=== PATIENT | male | born 1960 | race Caucasian/White ===

== ENCOUNTER → 2018-08-09 08:30 | Outpatient (CLI) | payer MEDICARE, BC, SELFPAY ==
--- NOTE | 2018-08-09 | CI_ITS ---
Cerebrovascular Exam Indications: 780.2 Syncope and collapse. IMPRESSIONS 1. The bilateral vertebral arteries are patent with normal antegrade flow. 2. Study suggests less than 20% stenosis involving the right internal carotid artery and the left internal carotid artery. Carotid duplex study. Complete study and Doppler flow study including spectral analysis, color and henao scale imaging. Height: Height: 182.9cm. Height: 72in. Weight: Weight: 100.7kg. Weight: 221.5lb. Body mass index: BMI: 30.1kg/m^2. Body surface area: BSA: 2.29m^2. Location: Vascular laboratory. Patient status: Outpatient. Tables: Arterial flow: + +--------+--------+ Location V sys V ed + +--------+--------+ Right CCA - proximal 114cm/s 28.3cm/s + +--------+--------+ Right CCA - distal 119cm/s 29.9cm/s + +--------+--------+ Right ECA 144cm/s -------- + +--------+--------+ Right ICA - proximal 78.1cm/s 32.9cm/s + +--------+--------+ Right ICA - mid 95.4cm/s 45.2cm/s + +--------+--------+ Right ICA - distal 83.3cm/s 41.4cm/s + +--------+--------+ Right vertebral 42.2cm/s -------- + +--------+--------+ Left CCA - proximal 115cm/s 27cm/s + +--------+--------+ Left CCA - distal 116cm/s 41.6cm/s + +--------+--------+ Left ECA 141cm/s -------- + +--------+--------+ Left ICA - proximal 95.1cm/s 40.1cm/s + +--------+--------+ Left ICA - mid 81.7cm/s 36.1cm/s + +--------+--------+ Left ICA - distal 75.5cm/s 26.5cm/s + +--------+--------+ Left vertebral 56cm/s -------- + +--------+--------+ Velocity ratios: + + + + + + Right, V sys Right, V ed Left, V sys Left, V ed + + + + + + Max ICA/dist CCA 0.8 1.51 0.82 0.96 + + + + + + (Report amended ) Electronically signed by: Khris Plunkett [id number]
--- NOTE | 2018-08-09 11:05 | MR_ITS ---
MR head/brain wo/w con HISTORY: Memory loss, syncope, unresponsive following syncope with dizziness and blurred vision ITS.REASON: SYNCOPE ORDERING PHYSICIAN: Juanjose Rodriguez MD PATIENT AGE: 58 years Comparison: None TECHNIQUE: Standard multiplanar multiecho sequences are performed without and with gadolinium enhancement. FINDINGS: No midline shift, mass effect, intracranial hemorrhage, or hydrocephalus is evident. Motion artifact is present on several sequences. There is tortuosity of the left vertebral artery causing some indentation upon the brainstem on the left of questioned clinical significance. No enhancing lesions are evident. No evidence of acute infarction. There are only a few T2 white matter hyperintensities noted nonspecific and may be due to minimal ischemic gliotic foci. The cerebellopontine angles, cerebellum, and brainstem are unremarkable. No mastoid effusion or sinus air-fluid level. The pituitary and optic chiasm are unremarkable. IMPRESSION: 1. No acute intracranial findings. 2. Scattered periventricular T2 white matter hyperintensities suggesting mild ischemic gliotic change. 3. Tortuosity of the left vertebral artery causing some indentation upon the left aspect of the brainstem nonspecific. Midbrain is slightly deviated toward the right. No hydronephrosis.
--- NOTE | 2018-08-09 12:12 | HMH.ITSHM ---
DULOXETINE PRIMIDONE PRAMIPEXOLE LEVETIRACETAM
== END ==
PROVIDERS: PCP Family Medicine; Visit Provider Family Medicine
DX: R55 Syncope and collapse (principal)
CPT/HCPCS: 70553; 93880; 95816; A9576

== ENCOUNTER → 2018-08-17 11:45 | Outpatient (CLI) | payer MEDICARE, BC, SELFPAY | PROVIDERS: PCP Family Medicine; Visit Provider Family Medicine | DX: R55 Syncope and collapse (principal) | CPT/HCPCS: 93225; 93226 ==

== ENCOUNTER → 2018-08-30 07:12 | Outpatient (CLI) | payer MEDICARE, BC, SELFPAY ==
--- NOTE | 2018-08-30 07:13 | CA_ITS ---
PROCEDURE: 2-D M-mode and color Doppler study INDICATIONS FOR THE TEST: Chest pain X COPD Heart Murmur Tobacco Smoking Palpitations FatigueX SyncopeX Edema HypertensionXDiabetes Mellitus Rheumatic Fever SOBXDOE Obesity Hyperlipidemia Family History HD Additional History CAD,DIZZINESS PATIENT INFORMATION HEIGHT: 72 WEIGHT:234 GENDER: Male B/P:123/76 2-D/M-MODE INTERPRETATION: 2-D MEASUREMENTS OBSERVED VALUES IN CMS Right Ventricular Dimension (RVDd) 2.3 Interventricular Septum (Thickness)(IVsd) .9 Left Ventricular Internal Dimensions(LVIDd) 5.0 Left Ventricular Posterior Wall (Thickness)(LVPWd) 1.0 Aortic Root 3.0 Aortic Cusp Separation 2.0 Left Atrial Dimensions (LAD) 3.6 2D 1. Left atrium is mildly enlarged, left ventricle is normal size, there is no concentric left ventricular hypertrophy, visually estimated ejection fraction 55% with no regional wall motion abnormality. 2. The right atrium is mildly enlarged, right ventricle is normal size and contractility. 3. The aortic valve is minimally thickened and fibrosed. 4. The mitral and tricuspid valve leaflets are minimally thickened. 5. The pulmonic valve is poorly visualized. 6. No significant pericardial effusion noted. DOPPLER INTERROGATION: Doppler interrogation of the aortic, mitral and tricuspid valvular presence of mild mitral and tricuspid regurgitation, tricuspid regurgitation jet velocity is insufficient for calculation of the right ventricular systolic pressure, diastolic parameters are inconclusive. CONCLUSION: 1. Mild biatrial enlargement, normal left ventricular size, visually estimated ejection fraction of 55% with no regional wall motion abnormality, diastolic parameters are inconclusive. 2. Mild mitral and tricuspid regurgitation 3. No significant pericardial effusion noted.
--- NOTE | 2018-08-30 07:13 | NM_ITS ---
History and Indications: Coronary artery disease, chest pain, shortness of breath, syncope and family history. Procedure: Patient exercised on Samuel protocol 9 minutes, resting heart rate was 61 bpm resting blood pressure 147/89, with exercise maximum heart rate achieved was 1 49 bpm which is greater than 85% of the maximum predicted heart rate and a blood pressure was 236/84. Test was started due to shortness of breath patient denied any complained of chest pain. Patient has good exercise capacity achieved 10.1mets of workload on treadmill, the blood pressure response to exercise was hypertensive. Electrocardiogram: Resting electrocardiogram showed sinus rhythm, with exercise there is less than 1.[address] segment depression noted from the baseline EKG, occasional premature ventricular complexes were also present. The EKG portion of the exercise Myoview is negative for ischemia. Cardiac stress and resting SPECT images: Exercise stress and rest SPECT images were obtained using technetium 99 Myoview 10.8 mCi at stress than 10.3 mCi at rest. Gated SPECT further analysis of segmental wall motion and calculation of the ejection fraction also done. Cardiac stress and rest SPECT images show uniform myocardial activity without segmental perfusion abnormality, computer derived ejection fraction is 58% with no regional wall motion abnormality, right ventricle is normal size and contractility. Conclusion: 1. The EKG portion of the exercise Myoview is for ischemia, patient has good exercise capacity achieved 10.1mets of workload on treadmill, the blood pressure response to exercise was hypertensive, test was stopped due to shortness of breath. 2. No scintigraphic evidence of reversible ischemia level of exercise, computer derived ejection fraction is 58% with no regional wall motion abnormality, right ventricle is normal size and contractility.
--- NOTE | 2018-08-30 07:28 | HMH.ITSHM ---
DULOXETINE PRIMIDONE PRAMIPEXOLE LEVETIRACTETAM
== END ==
PROVIDERS: PCP Family Medicine; Visit Provider Internal Medicine Cardiovascular Disease
DX: I25.10 Atherosclerotic heart disease of native coronary artery without angina pectoris (principal); I99.8 Other disorder of circulatory system; R55 Syncope and collapse; Z86.79 Personal history of other diseases of the circulatory system
CPT/HCPCS: 78452; 93017; 93306; A9502

== ENCOUNTER → 2019-02-22 15:51 | Outpatient (CLI) | payer MEDICARE, BC, SELFPAY ==
--- NOTE | 2019-02-22 16:00 | XR_ITS ---
XR knee LT 3V HISTORY: ITS.REASON: LT KNEE PAIN ORDERING PHYSICIAN: Juanjose Rodriguez MD PATIENT AGE: 58 years COMPARISON: None FINDINGS: No fracture or dislocation. No lytic or blastic change. Normal mineralization. There are minimal osteoarthritic changes of the medial compartment and patellofemoral joint. IMPRESSION: Mild osteoarthritis
== END ==
PROVIDERS: PCP Family Medicine; Visit Provider Family Medicine
DX: M25.562 Pain in left knee (principal)
CPT/HCPCS: 73562

== ENCOUNTER → 2020-05-11 12:50 | Outpatient (CLI) | payer MEDICARE, BC, SELFPAY ==
--- NOTE | 2020-05-11 12:54 | MR_ITS ---
PROCEDURE: MR KNEE LT WO CON CLINICAL INDICATION: PAIN IN LEFT KNEE Knee pain with catching and knee COMPARISON: [id number] XR knee LT 3V from 02/22/2019 TECHNIQUE: Routine multiplanar multi echo sequences are performed without gadolinium enhancement. FINDINGS: The cruciate ligaments, collateral ligaments, patellar tendon, and quadriceps tendon appear intact. No definite meniscal tear. There is increased T2 signal involving the posterior horn the medial meniscus but does not meet strict MRI criteria for meniscal tear. There are mild osteoarthritic changes of all 3 compartments. There is thinning of the patellar cartilage with some irregularity of the patellar cartilage. Small amount fluid is present in the knee joint. IMPRESSION: 1. No evidence of internal derangement. 2. Mild osteoarthritic changes with thinning and irregularity of the patellar cartilage suggesting chondromalacia patella with small effusion. Dictated by: Khris Plunkett MD 05/13/2020 08:58 Electronically signed by Khris Plunkett MD in [place] 05/13/2020 08:58
== END ==
PROVIDERS: PCP Family Medicine; Visit Provider Family Medicine
DX: M25.562 Pain in left knee (principal)
CPT/HCPCS: 73721

== ENCOUNTER → 2020-08-24 17:47 | Outpatient (CLI) | payer MEDICARE, BC, SELFPAY ==
--- NOTE | 2020-08-24 18:06 | XR_ITS ---
PROCEDURE: XR HAND RT MIN 3V CLINICAL INDICATION: DISLOCATION OF PIP JOINT OF 3RD DIGIT, INITAL ENCOUNTER Pain COMPARISON: No exams were available for comparison FINDINGS: There is a small calcific density along the ulnar and distal aspect the proximal phalanx of the 3rd digit which may be related to an avulsion fracture in this patient gives a history of having recent PIP dislocation at this area. There is a well-circumscribed bony fragment also at the PIP joint dorsally of the 5th digit which could be due to an old injury. Degenerative changes are also present. IMPRESSION: Possible avulsion fracture at the ulnar aspect of the PIP joint of the 3rd digit with suspected old avulsion of the PIP dorsally of the 5th digit Dictated by: Khris Plunkett MD 08/24/2020 18:36 Khris Plunkett MD in [place] 08/24/2020 18:36
--- NOTE | 2020-08-24 18:17 | ECG_ITS ---
APPROVED REPORT Exam: Resting ECG HR:64 bpm ECG Measurements Heart Rate 64 AXES ID 142 P 42 QRSd 80 QRS 19 QT 406 T 25 QTc 418 <Conclusion> Normal sinus rhythm Normal ECG Electronically signed by : Nehemiah Deleon, 08/25/2020 06:24:06
== END ==
PROVIDERS: PCP Family Medicine; Visit Provider Family Medicine
DX: S63.289A Dislocation of proximal interphalangeal joint of unspecified finger, initial encounter (principal); M94.0 Chondrocostal junction syndrome [Tietze]
CPT/HCPCS: 73130; 93005

== ENCOUNTER 2020-11-20 15:49 | Emergency (ER) | payer MEDICARE, BC, SELFPAY ==
--- NOTE | 2020-11-20 15:51 | ECG_ITS ---
APPROVED REPORT Exam: Resting ECG HR:82 bpm ECG Measurements Heart Rate 82 AXES DC 144 P 62 QRSd 84 QRS 43 QT 362 T 48 QTc 422 Conclusion Sinus rhythm with occasional premature ventricular complexes Otherwise normal ECG Electronically signed by : Nehemiah Deleon, 11/21/2020 07:17:00
--- NOTE | 2020-11-20 15:51 | XR_ITS ---
PROCEDURE: XR CHEST 2V CLINICAL HISTORY: Chest Pain COMPARISON: No exams were available for comparison FINDINGS: The cardiomediastinal silhouette and pulmonary vascularity are within normal limits. Atelectatic changes are present in the right perihilar region and lingula. No acute bony abnormalities. IMPRESSION: Mild atelectasis in the right perihilar region and lingula otherwise negative Dictated by: Khris Plunkett MD 11/20/2020 16:18 Khris Plunkett MD in [place] 11/20/2020 16:18
--- NOTE | 2020-11-20 15:55 | HMH.EDGENADL ---
ED Disposition Clinical Impression: Atypical chest pain Disposition: Home, Self-Care Condition on Discharge: Good Instructions: DI for Atypical Chest Pain Additional Instructions: See Dr. Amado in his office tomorrow morning at 9 AM. Return immediately if worsening chest pain, vomiting, shortness of breath, fever, coughing of blood. Protonix as prescribed. Prescriptions: Pantoprazole Sodium [Protonix 40mg tablet] 40 mg PO DAILY #15 tab Transmission Status: Pending to [facility] Referrals: Juanjose Rodriguez MD [Primary Care Provider] - - Critical Care Critical Care Time: No Attestation: On , the high probability of a clinically significant, sudden or life threatening deterioration of the following system(s) required my full and direct attention, intervention and personal management. The time I documented below is in addition to time spent performing reported procedures but includes the following listed in this critical care notation. Medical Decision Making - Medical Records MR Comment: Prior stress test result, prior left heart cath result, prior carotid Doppler results reviewed. Left heart cath and stress test results are below. Most recent cardiology office visit in April reviewed. - Jarrett Inquiry Pt receiving controlled substance: No Vital Signs: 11/20/20 15:57 11/20/20 16:06 11/20/20 16:30 Temperature 98.1 F Temperature Source Oral Pulse Rate [Right Brachial] 84 77 79 Respiratory Rate 18 18 Blood Pressure [Right Arm] 163/93 H 145/90 H 134/83 Blood Pressure Mean [Right Arm] 116 108 100 Blood Pressure Source [Right Arm] Automatic Cuff Automatic Cuff Automatic Cuff Blood Pressure Position [Right Arm] Supine Sitting Sitting 02 Sat by Pulse Oximetry 96 97 96 Oxygen Delivery Method Room Air Room Air Room Air - Lab Data Lab Results 11/20/20 15:52: WBC 12.5 H, RBC 5.48, Hgb 14.9, Hct 46.0, MCV 84.0, MCH 27.2, MCHC 32.4, RDW 13.8, Plt Count 300, MPV 7.1 L, Neut % (Auto) 70.1, Lymph % (Auto) 19.3, Caroline % (Auto) 5.5, Eos % (Auto) 4.4, Baso % (Auto) 0.6, Neut # (Auto) 8.8 H, Lymph # (Auto) 2.4, Caroline # (Auto) 0.7, Eos # (Auto) 0.6 H, Baso # (Auto) 0.1 11/20/20 15:52: Sodium 138, Potassium 4.2, Chloride 104, Carbon Dioxide 28, Anion Gap 10.2, BUN 15, Creatinine 0.80, Estimated Creat Clear 159, Estimated GFR 99, Est GFR ( Amer) 120, Glucose 100, Calcium 9.3, Troponin I < 0.01 11/20/20 15:52: SARS-CoV-2 IgG Ab (Rapid) Negative, SARS-CoV-2 IgM Ab (Rapid) Negative 11/20/20 15:52: D-Dimer 0.75 Result diagrams: 11/20/20 15:52 11/20/20 15:52 Orders (Tests/Meds): ED MEDICATIONS Generic Name Dose Route Start Last Admin Trade Name Freq PRN Reason Stop Dose Admin Sodium Chloride 10 ml 11/20/20 16:07 11/20/20 16:16 Sodium Chloride 0.9% 10ml Vial IV 12/20/20 16:06 10 ml NEEDED PRN Administration dilute protonix Discontinued Medications Generic Name Dose Route Start Last Admin Trade Name Freq PRN Reason Stop Dose Admin Belladonna Alkaloids 60 ml 11/20/20 16:07 11/20/20 16:15 Gi Cocktail 60ml Udc PO 11/20/20 16:08 60 ml ONCE ONE Administration Pantoprazole Sodium 40 mg 11/20/20 16:07 11/20/20 16:15 Pantoprazole 40mg Vial IV 11/20/20 16:08 40 mg ONCE ONE Administration ORDERS Category Date Time Status Troponin I Q3H Lab 11/20/20 19:00 Ordered Troponin I Q3H Lab 11/20/20 22:00 Ordered - Radiology Data #1 Image(s): Chest Image Reviewed: Yes I reviewed the patient's radiology image, Yes I have reviewed radiologist's interpretation PROCEDURE: XR CHEST 2V CLINICAL HISTORY: Chest Pain COMPARISON: No exams were available for comparison FINDINGS: The cardiomediastinal silhouette and pulmonary vascularity are within normal limits. Atelectatic changes are present in the right perihilar region and lingula. No acute bony abnormalities. IMPRESSION: Mild atelectasis in the right perihilar reg
[2020-11-20 15:57] VITALS: BP 163/93; PULSE 84; RESP 18; TEMP 36.7; O2SAT 96; BMI 33.9
[2020-11-20 16:06] VITALS: BP 145/90; PULSE 77; O2SAT 97
[2020-11-20 16:11] LABS: Basophils # 0.1 K/mm3 (0-0.2); Basophils % 0.6 % (0.1-2.0); Eosinophils # 0.6 K/mm3 (0.0-0.4); Eosinophils % 4.4 % (0.1-12.0); Hemoglobin 14.9 g/dL (14.1-18.0); Lymphocytes # 2.4 K/mm3 (0.7-4.5); Lymphocytes % 19.3 % (10-50); Mean Corpuscular HGB Conc 32.4 g/dL (31.8-35.4); Mean Corpuscular Hemoglobin 27.2 pg (27.0-31.2); Mean Platelet Volume 7.1 fl (7.4-10.4); Monocytes # 0.7 K/mm3 (0.1-1.0); Monocytes % 5.5 % (1.7-9.3); Neutrophils # 8.8 K/mm3 (1.8-7.8); Neutrophils % 70.1 % (37.0-80.0); Platelet Count 300 K/mm3 (142-424); Red Blood Count 5.48 M/mm3 (4.60-6.20); Red Cell Distribution Width 13.8 % (11.5-17.5); White Blood Count 12.5 K/mm3 (4.8-10.8)
[2020-11-20 16:12] LABS: Chloride 104 mmol/L (98-107); Potassium 4.2 mmoL/L (3.5-5.1); Sodium 138 mmol/L (136-145)
[2020-11-20 16:15] LABS: Anion Gap 10.2 mEq/L (5-15); Blood Urea Nitrogen 15 mg/dl (9-20); Calcium 9.3 mg/dl (8.4-10.2); Carbon Dioxide 28 mmol/L (22.0-30.0); Creatinine Clearance Estimated 159 mL/min (50-200); Estimated Glomerular Filt Rate 99 ml/min (>60); GFR (African American) 120 ML/MIN (>60); Glucose 100 mg/dl (74-100)
[2020-11-20 16:20] LABS: D-Dimer 0.75 ug/mL (0.15-8.0)
[2020-11-20 16:30] VITALS: BP 134/83; PULSE 79; RESP 18; O2SAT 96
[2020-11-20 16:40] LABS: Troponin I < 0.01 ng/ml (0.00-0.034)
[2020-11-20 16:49] LABS: Coronavirus 19 IgG Antibody Negative (Negative); Coronavirus 19 IgM Antibody Negative (Negative)
[2020-11-20 17:30] VITALS: BP 152/78; PULSE 78; RESP 16; TEMP 36.6; O2SAT 98
== END 2020-11-20 17:31 | disposition home or self-care (01) ==
PROVIDERS: Emergency Provider Emergency Medicine; PCP Family Medicine
DX: R07.89 Other chest pain (principal); Z01.84 Encounter for antibody response examination; R55 Syncope and collapse; I25.10 Atherosclerotic heart disease of native coronary artery without angina pectoris; E11.9 Type 2 diabetes mellitus without complications; I10 Essential (primary) hypertension; E78.5 Hyperlipidemia, unspecified; K21.9 Gastro-esophageal reflux disease without esophagitis; Z87.891 Personal history of nicotine dependence; Z79.899 Other long term (current) drug therapy
CPT/HCPCS: 71046; 80048; 84484; 85025; 85378; 86328; 93005; 96374; 99283

== ENCOUNTER → 2021-02-11 13:04 | Outpatient (CLI) | payer MEDICARE, BC, SELFPAY | PROVIDERS: PCP Family Medicine; Visit Provider Family Medicine | DX: G47.33 Obstructive sleep apnea (adult) (pediatric) (principal); I10 Essential (primary) hypertension; R40.0 Somnolence; R51.9 Headache, unspecified; G47.00 Insomnia, unspecified; E66.9 Obesity, unspecified | CPT/HCPCS: G0399 ==

== ENCOUNTER → 2021-02-26 10:43 | Outpatient (CLI) | payer MEDICARE, BC, SELFPAY ==
[2021-02-26 12:19] LABS: Ferritin 53.8 ng/ml (17.9-464)
== END ==
PROVIDERS: Visit Provider Nurse Practitioner Family
DX: E83.10 Disorder of iron metabolism, unspecified (principal); G25.81 Restless legs syndrome
CPT/HCPCS: 36415; 82728

== ENCOUNTER → 2021-05-13 14:19 | Outpatient (CLI) | payer MEDICARE, BC, SELFPAY ==
--- NOTE | 2021-05-13 14:23 | XR_ITS ---
PROCEDURE: XR KNEE RT 3V CLINICAL INDICATION: NO INJURY,RT KNEE PAIN COMPARISON: CR [id number] XR knee LT 3V from 02/22/2019 FINDINGS: Mild degenerative change of the medial and lateral joint compartments and moderate degenerative change of the patellofemoral joint. Large joint effusion. Mild prepatellar soft tissue swelling. No acute fracture or dislocation. IMPRESSION: Tricompartmental degenerative changes of the right knee joint with large joint effusion and mild soft tissue swelling. No acute fracture or dislocation. Dictated by: Stoney Rodrigues 05/13/2021 15:03 Stoney Rodrigues in [place] 05/13/2021 15:03
== END ==
PROVIDERS: PCP Family Medicine; Visit Provider Family Medicine
DX: M25.561 Pain in right knee (principal)
CPT/HCPCS: 73562

== ENCOUNTER → 2021-05-22 10:47 | Outpatient (CLI) | payer MEDICARE, BC, SELFPAY ==
--- NOTE | 2021-05-22 11:13 | CA_ITS ---
APPROVED REPORT EXAM: Comprehensive 2D, Doppler, and color-flow Echocardiogram Professor Of Art: Karla Pierce, RCS, RVS Ht: 6 ft 0 in Wt: 260lbs BSA: 2.38 BP: 136/82 mmHg Indications: SOB, HTN, HLD, Palpitations 2D Dimensions IVSd 1.17 cm M: 0.6-1.2 LVEF (Visual) 74.70 % PWd 1.03 cm M: 0.6 - 1.2 LA Volume 67.70 mL LVDd 5.73 cm M: 4.2 - 5.9 LA Volume Index 28.44 mL/m2 (M/F) 16-34 LVDs 3.12 cm M: 2.5 - 4.0 Left Atrium 4.33 cm M: 3.0 - 4.0 LVOT 2.10 cm (M/F) 1.5-2.5 M-Mode Dimensions LA Diam 4.44 cm (1.9-4.0) Ao Diam 3.18 cm (2.0-3.7) TAPSE 3.30 (<1.7) LV Diastology E Decel Time 260.00 (160-240 msec) E/A Ratio 1.32 MED E' 10.60 (< 7 cm/sec) MED A' 11.10 cm/s E'/MED E' Ratio 7.00 (>14) LAT E' 8.60 (<10 cm/sec) LAT A' 13.30 cm/s E/LAT E' Ratio 8.63 (>14) Aortic Valve LVOT Max 127.00 (70-110 cm/s) LVOT VTI 21.04 cm AoV Peak Lauro. 174.00 (50-130 cm/s) AO Peak GR. 12.20 mmHg AO Mean GR. 6.40 (<5 mmHg) AO VTI 32.64 (18-25 cm) MARYSE (VTI) 2.23 (2.5-4.5 cm2) Mitral Valve MV A Velocity 56.00 (40-130 cm/s) E/A Ratio 1.32 MV Decel. Time 260.00 (160-240 ms) Pulmonary Valve PV Peak Velocity 111.00 (50-150 cm/s) Tricuspid Valve TR P. Velocity 202.00 cm/s Left Ventricle Left atrium is normal size, left ventricle is normal size, there is no concentric left ventricular hypertrophy, visually estimated ejection fraction 55% with no regional wall motion abnormality, diastolic parameters are within normal range. Right Ventricle Right atrium and right ventricle are normal size and contractility. Aortic Valve Aortic valve is grossly normal. Mitral Valve Mitral valve is grossly normal, there is trace mitral regurgitation. Tricuspid Valve Tricuspid grossly normal, there is trace tricuspid regurgitation, tricuspid regurgitation jet velocity is inadequate for calculation of the right ventricular systolic pressure. Pulmonic Valve Pulmonic valve is poorly visualized. Great Vessels Aortic root is normal size. Pericardium No significant pericardial effusion noted. Conclusion 1. Normal left ventricular size, preserved left ventricular systolic function, visually estimated ejection fraction 55% with no regional wall motion abnormality, diastolic parameters are within normal range. 2. Trace mitral and tricuspid regurgitation. 3. No significant pericardial effusion noted. Electronically signed by : Chava Wise, 05/23/2021 16:11:14
--- NOTE | 2021-05-22 11:58 | NM_ITS ---
APPROVED REPORT Exam: Nuclear Stress Test Indication: Chest pain, SOB, Fatigue, CHF, Tobacco use, Family history Patient Location: Outpatient Stress Tech: Renetta Tobias MS Tech:Keren Martin, ARRT, RT (R)(N) Ht: 6 ft 0 in Wt: 260 lbs HR: 73 bpm BP: 134/83 mmHg BSA: 2.38 m2 History: Chest pain, SOB, Fatigue, CHF, Tobacco use, Family history Procedure: Patient exercised on Samuel protocol 7:45 minutes and sec, resting heart rate 73 bpm, resting blood pressure 134/83 mmHg, with exercise maximum heart rate achived was 149 bpm which is 93 % of the maximum predicted heart rate and blood pressure was 224/84 mmHg. Test was stopped due to SOA. Patient denied any complaint of chest pain. Patient has Good exercise capacity, achieved 10.1 METs of workload on treadmill, the blood pressure response to exercise was Hypertensive. Electrocardiogram Resting electrocardiogram shows sinus rhythm, with exercise there is less than 1.[address] segment depression noted from the baseline EKG. The EKG portion of the exercise Myoview is negative for ischemia. Cardiac Stress and Resting SPECT Images: Cardiac Stress and Resting SPECT images were obtained using technetium 99m Myoview 31.9 mCi stress and 10.14 mCi at rest. Gated SPECT for analysis of segmental wall motion and calculation of the ejection fraction also done. Prone images were also obtained. Cardiac stress and resting SPECT images show mild fixed defect in the inferior wall with normal contractility gated SPECT is likely secondary to soft tissue attenuation, no reversible ischemia seen, computer derived ejection fraction is 59% with no regional wall motion abnormality, right ventricle is normal size and contractility. Conclusion: 1. The EKG portion of the exercise Myoview is negative for ischemia, patient has good exercise capacity achieved 10.1 METs of workload on treadmill, the blood pressure response to exercise was hypertensive, there was no exercise-induced chest discomfort. 2. No scintigraphic evidence of reversible ischemia seen, computer derived ejection fraction is 59% with no regional wall motion abnormality, right ventricle is normal size and contractility 3. Likely normal exercise Myoview study except for hypertensive blood pressure response. Electronically signed by : Chava Wise, 05/23/2021 11:00:34
--- NOTE | 2021-05-22 13:31 | HMH.ITSHM ---
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 []SILDENAFIL ROTIGOTINE PRAMIOPEXOLE PANTOPRAZOLE ASA MULTIVITAMIN LEVETIRACETAM ESZOPICLONE DULOXETINE COLCHICINE
--- NOTE | 2021-05-22 14:34 | CA_ITS ---
APPROVED REPORT Exam: Exercise Treadmill Technologist: Renetta Tobias, Ht: 6 ft 0 in Wt: 260 lbs BSA: 2.38 m2 HR: 73 bpm BP: 134/80 mmHg Medical History Medications: Aspirin,,,,, Multi Vitamin,,,,, Pantoprazole,,,,, Pramipexole,,,,, DulOXETINE,,,,, Levetiracetam,,,,, LUNESTA,,,,, ColCHIcine,,,,, SilDENAFIL,,,,, Neupro,,,,, Stress Test Details Test: Samuel HR Resting HR: 85 bpm Max Heart Rate (APMHR): 160.309269 bpm Max HR Achieved: 149 bpm Target HR (85% APMHR): 136.922483 bpm % of APMHR: 93.13 Recovery HR: 93 bpm BP Resting BP: 134/80 mmHg Max BP: 224/84 mmHg Recovery BP: 132.0/72.0 mmHg ECG Resting ECG: NSR, ST-T abns in leads III and aVF, occ PVC Clinical Exercise duration: 07:48 min Highest Stage Achieved: Exercise capacity: 10.1 METs Stress ECG Conclusion Exercised 7:45 on Samuel Protocol. Max HR: 149 % of PM: 93% Max BP: 224/84 MET's: 10.1 Test stopped due to: SOA Symptoms: Dyspnea, no CP. Arrhythmias/Ectopy: Occ PAC. Occ PVC and fusion beat. ST-T Changes: 0.5-0.75mm horizontal ST depression in lead II and exaggeration of baseline abns in leads III and aVF. Conclusion: Probably normal GTX other than HTN response to exercise. Myoview images reported separately. Test Summary REST . . . . . . . Sitting REST . . . . . . . Standing REST 06:26 0.0 1.2 85 . 134/ 80 . . Stage 1 01:00 10.0 1.7 103 . . . . Stage 1 02:00 10.0 1.7 110 . . . . Stage 1 03:00 10.0 1.7 114 . 160/ 78 . . Stage 2 01:00 12.0 2.5 121 . . . . Stage 2 02:00 12.0 2.5 124 . . . . Stage 2 03:00 12.0 2.5 129 . 190/ 76 . . Stage 3 . . . . . . . Cardiolite injected Stage 3 01:00 14.0 3.4 138 . . . . Stage 3 01:48 14.0 3.4 147 . . . Stop exercise at 07:48 RECOVERY 01:00 0.0 0.0 135 . . . . RECOVERY 02:00 0.0 0.0 122 . 224/ 84 . . RECOVERY 03:00 0.0 0.0 105 . 224/ 84 . . RECOVERY 04:00 0.0 0.0 105 . 150/ 78 . . RECOVERY 05:00 0.0 0.0 95 . 150/ 78 . . RECOVERY 06:00 0.0 0.0 96 . 176/ 74 . . RECOVERY 07:00 0.0 0.0 94 . 176/ 74 . . RECOVERY 07:23 0.0 0.0 93 . 132/ 72 . . Electronically signed by : Chava Wise, 05/23/2021 10:44:23
== END ==
PROVIDERS: PCP Family Medicine; Visit Provider Nurse Practitioner Family
DX: E78.2 Mixed hyperlipidemia (principal); I10 Essential (primary) hypertension; I25.10 Atherosclerotic heart disease of native coronary artery without angina pectoris; N52.9 Male erectile dysfunction, unspecified; R06.00 Dyspnea, unspecified; R40.0 Somnolence
CPT/HCPCS: 78452; 93017; 93306; A9502

== ENCOUNTER → 2021-06-27 20:01 | Outpatient (CLI) | payer MEDICARE, BC, SELFPAY | PROVIDERS: PCP Family Medicine; Visit Provider Nurse Practitioner Family | DX: G47.33 Obstructive sleep apnea (adult) (pediatric) (principal) | CPT/HCPCS: 95811 ==

== ENCOUNTER → 2021-07-26 13:02 | Outpatient (CLI) | payer MEDICARE, BC, SELFPAY ==
--- NOTE | 2021-07-26 13:08 | XR_ITS ---
PROCEDURE: XR KNEE RT 4V CLINICAL INDICATION: RT knee pain COMPARISON: CR [id number] XR knee LT 3V from 02/22/2019 CR XR KNEE RT 3V from 05/13/2021 FINDINGS: No fracture or dislocation. No lytic or blastic change. There is normal mineralization. There are mild osteoarthritic changes involving all 3 compartments with a small suprapatellar effusion suspected which is decreased in size from the previous exam. Other findings:None. IMPRESSION: Mild osteoarthritis with small suprapatellar effusion Dictated by: Khris Plunkett MD 07/26/2021 13:56 Khris Plunkett MD in [place] 07/26/2021 13:56
--- NOTE | 2021-07-26 13:08 | XR_ITS ---
PROCEDURE: XR HIP RT 2-3V W/PELVIS CLINICAL INDICATION: RT hip pain COMPARISON: No exams were available for comparison FINDINGS: There are mild osteoarthritic changes involving the right hip. No fracture or dislocation. No lytic or blastic change. IMPRESSION: Mild osteoarthritis of the right hip Dictated by: Khris Plunkett MD 07/26/2021 14:01 Khris Plunkett MD in [place] 07/26/2021 14:01
== END ==
PROVIDERS: PCP Family Medicine; Visit Provider Orthopaedic Surgery
DX: M25.551 Pain in right hip (principal); M25.561 Pain in right knee
CPT/HCPCS: 73502; 73564

== ENCOUNTER → 2021-08-12 13:45 | Outpatient (CLI) | payer MEDICARE, BC, SELFPAY ==
--- NOTE | 2021-08-12 13:54 | MR_ITS ---
PROCEDURE: MR KNEE RT WO CON CLINICAL INDICATION: RT knee pain COMPARISON: CR XR KNEE RT 4V from 07/26/2021 TECHNIQUE: Routine multiplanar multi echo sequences are performed without gadolinium enhancement. FINDINGS: The cruciate ligaments are intact. Collateral ligaments also appear intact. There is increased PD signal within the menisci. These however do not meet the strict criteria for meniscal tear. The patellar tendon and quadriceps tendon appear intact. There is mild thinning of the patellar cartilage. There is a small knee joint effusion. Are minimal osteoarthritic changes involving all 3 compartments. IMPRESSION: 1. No internal derangement. 2. Mild osteoarthritic changes with knee joint effusion. Dictated by: Khris Plunkett MD 08/13/2021 11:32 Khris Plunkett MD in [place] 08/13/2021 11:32
== END ==
PROVIDERS: PCP Family Medicine; Visit Provider Orthopaedic Surgery
DX: M25.561 Pain in right knee (principal)
CPT/HCPCS: 73721

== ENCOUNTER → 2021-08-29 09:30 | Outpatient (CLI) | payer MEDICARE, BC, SELFPAY ==
[2021-08-29 10:53] LABS: Alanine Aminotransferase 24 U/L (12-78); Alkaline Phosphatase 56 U/L (38-126); Anion Gap 11.6 mEq/L (5-15); Aspartate Amino Transferase 25 U/L (17-59); Bilirubin,Direct 0.1 mg/dl (0.0-0.4); Bilirubin,Indirect 0.2 mg/dL (0.0-0.9); Bilirubin,Total 0.3 mg/dl (0.2-1.3); Bilirubin,Unconjugated 0.3 mg/dL (0.0-1.1); Blood Urea Nitrogen 11 mg/dl (9-20); Calcium 8.8 mg/dl (8.4-10.2); Carbon Dioxide 26 mmol/L (22.0-30.0); Chloride 106 mmol/L (98-107); Chol/HDL Ratio 4.6 (1-3.5); Cholesterol 198 mg/dl (140-200); Estimated Glomerular Filt Rate 170 ml/min (>60); GFR (African American) 205 ML/MIN (>60); Glucose 135 mg/dl (74-100); HDL Cholesterol 43 mg/dl (40-60); Potassium 4.6 mmoL/L (3.5-5.1); Sodium 139 mmol/L (136-145); Total Protein,Serum 6.7 g/dl (6.3-8.2); Triglycerides 156 mg/dl (30-150); VLDL Cholesterol 31 mg/dL (0-40)
[2021-08-29 11:02] LABS: NT Pro Brain Natriuretic Pep. 81.8 pg/mL (0-125)
[2021-08-29 11:04] LABS: Direct LDL Cholesterol 126.33 mg/dL (100-129)
== END ==
PROVIDERS: Visit Provider Internal Medicine Cardiovascular Disease
DX: E78.2 Mixed hyperlipidemia (principal); I10 Essential (primary) hypertension; I25.10 Atherosclerotic heart disease of native coronary artery without angina pectoris; N52.9 Male erectile dysfunction, unspecified; R06.00 Dyspnea, unspecified; R07.89 Other chest pain; R40.0 Somnolence
CPT/HCPCS: 36415; 80048; 80061; 80076; 83880

== ENCOUNTER → 2021-09-19 15:28 | Outpatient (CLI) | payer MEDICARE, BC, SELFPAY ==
--- NOTE | 2021-09-19 15:30 | CA_ITS ---
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: Deisy Chandra RVT Ht: 6 ft 0 in Wt: 265lbs BSA: 2.40 BP: 129/73 mmHg Indications: CP,CAD,GERD,SMOKER,HTN,HLD 2D Dimensions LVOT 2.09 cm (M/F) 1.5-2.5 LA Volume 50.50 mL LA Volume Index 21.04 mL/m2 (M/F) 16-34 M-Mode Dimensions RVDd 4.11 cm (0.9-2.6) LA Diam 5.89 cm (1.9-4.0) LVDd 4.92 cm (3.5-5.7) Ao Diam 2.95 cm (2.0-3.7) LVDs 3.44 cm (3.5-5.7) IVSd 0.93 cm (0.6-1.1) PWd 1.23 cm (0.6-1.1) EF (Teich) 57.20% FS 30.10% EDV (Teich) 113.90 mL TAPSE 2.78 (<1.7) ESV (Teich) 48.80 mL LV Diastology E Decel Time 177.00 (160-240 msec) E/A Ratio 1.7 MED E' 7.30 (< 7 cm/sec) E'/MED E' Ratio 12.59 (>14) LAT E' 8.90 (<10 cm/sec) E/LAT E' Ratio 10.33 (>14) Aortic Valve AO Peak GR. 6.50 mmHg Mitral Valve MV E Max Lauro. 92.00 (40-130 cm/s) MV A Velocity 54.00 (40-130 cm/s) E/A Ratio 1.72 MV Decel. Time 177.00 (160-240 ms) MV PHT 52.00 ms Pulmonary Valve PV Peak Velocity 88.00 (50-150 cm/s) Tricuspid Valve TR P. Velocity 243.00 cm/s RAP Estimate 10.00 mmHg RVSP 33.60 mmHg Left Ventricle Left atrium is mildly enlarged, left ventricle is normal size, mild concentric left ventricular hypertrophy, visually estimated ejection fraction 55% with no regional wall motion abnormality, diastolic parameters are inconclusive. Right Ventricle Right atrium and right ventricular mildly enlarged with normal contractility. Aortic Valve Aortic valve is minimally thickened and fibrosed, there is no aortic stenosis or aortic insufficiency. Mitral Valve Mitral valve is grossly normal, there is trace mitral regurgitation. Tricuspid Valve Tricuspid grossly normal, there is trace tricuspid regurgitation, calculated right ventricular systolic pressure 34 mmHg. Pulmonic Valve Pulmonic valve is poorly visualized. Great Vessels Aortic root is normal size. Inferior vena cava is normal size with normal inspiratory collapse. Pericardium No significant pericardial effusion noted. Conclusion 1. Mild biatrial enlargement, normal left ventricular size, mild concentric left ventricular hypertrophy, visually estimated ejection fraction 55% with no regional wall motion abnormality, diastolic parameters are inconclusive. 2. Mildly enlarged right ventricle with normal contractility. 3. Trace mitral and tricuspid regurgitation, calculated right ventricular systolic pressure 34 mmHg. 4. Inferior vena cava normal size with normal inspiratory collapse. Electronically signed by : Chava Wise MD 09/20/2021 13:41:37
[2021-09-19 16:03] LABS: Coronavirus 19, PCR Not Detected (NotDetected); Influenza A, PCR Not Detected (NotDetected); Influenza B, PCR Not Detected (NotDetected)
--- NOTE | 2021-09-19 16:11 | XR_ITS ---
PROCEDURE: XR CHEST 2V CLINICAL HISTORY: dyspnea COMPARISON: CR CXR CHEST(2 VIEWS-NOT PORTABLE) from 11/01/2014 CR CXR CHEST(2 VIEWS-NOT PORTABLE) from 10/09/2016 CR XR CHEST 2V from 11/20/2020 FINDINGS: The cardiomediastinal silhouette and pulmonary vascularity are within normal limits. The lungs are clear without infiltrates, suspicious nodules, or pleural effusions. No acute bony abnormalities. IMPRESSION: No acute findings. Dictated by: Khris Plunkett MD 09/19/2021 16:20 Khris Plunkett MD in [place] 09/19/2021 16:20
[2021-09-19 17:12] LABS: Basophils # 0.1 K/mm3 (0-0.2); Basophils % 0.7 % (0.1-2.0); Eosinophils # 0.3 K/mm3 (0.0-0.4); Eosinophils % 2.6 % (0.1-12.0); Hematocrit 43.7 % (42.0-52.0); Hemoglobin 14.1 g/dL (14.1-18.0); Lymphocytes # 3.1 K/mm3 (0.7-4.5); Mean Corpuscular HGB Conc 32.3 g/dL (31.8-35.4); Mean Corpuscular Hemoglobin 28.1 pg (27.0-31.2); Mean Platelet Volume 8.1 fl (7.4-10.4); Monocytes # 0.7 K/mm3 (0.1-1.0); Monocytes % 6.8 % (1.7-9.3); Neutrophils # 6.3 K/mm3 (1.8-7.8); Neutrophils % 59.8 % (37.0-80.0); Platelet Count 402 K/mm3 (142-424); Red Blood Count 5.03 M/mm3 (4.60-6.20); Red Cell Distribution Width 13.2 % (11.5-17.5); White Blood Count 10.4 K/mm3 (4.8-10.8)
[2021-09-19 18:02] LABS: Alanine Aminotransferase 27 U/L (12-78); Albumin Level 4.4 g/dl (3.5-5.0); Alkaline Phosphatase 58 U/L (38-126); Anion Gap 15.9 mEq/L (5-15); Aspartate Amino Transferase 27 U/L (17-59); Bilirubin,Direct 0.3 mg/dl (0.0-0.4); Bilirubin,Total 0.3 mg/dl (0.2-1.3); Blood Urea Nitrogen 15 mg/dl (9-20); Calcium 9.5 mg/dl (8.4-10.2); Carbon Dioxide 28 mmol/L (22.0-30.0); Chloride 102 mmol/L (98-107); Estimated Glomerular Filt Rate 115 ml/min (>60); GFR (African American) 139 ML/MIN (>60); Glucose 89 mg/dl (74-100); Potassium 4.9 mmoL/L (3.5-5.1); Sodium 141 mmol/L (136-145); Total Protein,Serum 7.2 g/dl (6.3-8.2)
[2021-09-19 18:11] LABS: NT Pro Brain Natriuretic Pep. 40.5 pg/mL (0-125)
== END ==
PROVIDERS: PCP Family Medicine; Visit Provider Internal Medicine Cardiovascular Disease
DX: E78.2 Mixed hyperlipidemia (principal); I10 Essential (primary) hypertension; I25.10 Atherosclerotic heart disease of native coronary artery without angina pectoris; N52.9 Male erectile dysfunction, unspecified; R06.00 Dyspnea, unspecified; R07.89 Other chest pain; R53.81 Other malaise; R53.83 Other fatigue; Z11.52 Encounter for screening for COVID-19
CPT/HCPCS: 36415; 71046; 80048; 80076; 83880; 85025; 93306; C9803; U0003; U0005

== ENCOUNTER → 2021-10-02 12:41 | Outpatient (CLI) | payer MEDICARE, BC, SELFPAY ==
[2021-10-02 12:47] LABS: Coronavirus 19, PCR Not Detected (NotDetected); Influenza A, PCR Not Detected (NotDetected); Influenza B, PCR Not Detected (NotDetected)
[2021-10-02 13:06] LABS: Basophils # 0.1 K/mm3 (0-0.2); Basophils % 0.6 % (0.1-2.0); Eosinophils # 0.3 K/mm3 (0.0-0.4); Eosinophils % 3.6 % (0.1-12.0); Hematocrit 43.5 % (42.0-52.0); Hemoglobin 14.3 g/dL (14.1-18.0); Lymphocytes # 2.3 K/mm3 (0.7-4.5); Lymphocytes % 28.2 % (10-50); Mean Corpuscular HGB Conc 32.8 g/dL (31.8-35.4); Mean Corpuscular Volume 88.4 fl (80-94); Mean Platelet Volume 6.8 fl (7.4-10.4); Monocytes # 0.6 K/mm3 (0.1-1.0); Monocytes % 7.7 % (1.7-9.3); Neutrophils # 4.9 K/mm3 (1.8-7.8); Neutrophils % 59.8 % (37.0-80.0); Platelet Count 310 K/mm3 (142-424); Red Blood Count 4.92 M/mm3 (4.60-6.20); Red Cell Distribution Width 12.8 % (11.5-17.5); White Blood Count 8.1 K/mm3 (4.8-10.8)
== END ==
PROVIDERS: Nurse Practitioner; Visit Provider Family Medicine
DX: Z20.822 Contact with and (suspected) exposure to COVID-19 (principal)
CPT/HCPCS: 36415; 85025; C9803; U0003; U0005

== ENCOUNTER 2021-11-19 17:00 | Emergency (ER) | payer MEDICARE, BC, SELFPAY ==
[2021-11-19 17:01] VITALS: BP 162/91; PULSE 86; RESP 18; TEMP 36.9; O2SAT 97; BMI 36.1
[2021-11-19 17:37] VITALS: BMI 36.1
--- NOTE | 2021-11-19 17:38 | CT_ITS ---
PROCEDURE INFORMATION: Exam: CT Abdomen And Pelvis Without Contrast Exam date and time: 11/19/2021 5:38 PM Age: 61 years old Clinical indication: Abdominal pain; Generalized; Prior surgery; Surgery date: 6+ months; Surgery type: Gallbladder, hernia; Additional info: Stone protocol TECHNIQUE: Imaging protocol: Computed tomography of the abdomen and pelvis without contrast. Radiation optimization: All CT scans at this facility use at least one of these dose optimization techniques: automated exposure control; mA and/or kV adjustment per patient size (includes targeted exams where dose is matched to clinical indication); or iterative reconstruction. COMPARISON: CR XR HIP RT 2-3V W/PELVIS 07/26/2021 1:15 PM FINDINGS: Heart: Small pericardial effusion Liver: Normal. No mass. Gallbladder and bile ducts: Cholecystectomy Pancreas: Normal. No ductal dilation. Spleen: The spleen demonstrates punctate calcifications, consistent with remote granulomatous organism exposure. Adrenal glands: Normal. No mass. Kidneys and ureters: 2.9 cm simple cyst anterior left kidney. . No follow-up imaging recommended . There is no evidence of renal or ureteral calcifications. Stomach and bowel: Gastric sutures Appendix: No evidence of appendicitis. Intraperitoneal space: Unremarkable. No free air. No significant fluid collection. Vasculature: Unremarkable. No abdominal aortic aneurysm. Lymph nodes: Unremarkable. No enlarged lymph nodes. Urinary bladder: Unremarkable as visualized. Reproductive: Unremarkable as visualized. Bones/joints: Unremarkable. No acute fracture. Soft tissues: Soft tissue density in the anterior abdominal wall extending into the umbilical region. This does not represent bowel It measures 3 by 2.2 cm and 12 Hounsfield units.. IMPRESSION: Soft tissue density in the anterior abdominal wall extending into the umbilical region. This does not represent bowel It measures 3 by 2.2 cm and 12 Hounsfield units... And may represent evolving hematoma or infection or postsurgical sequelae COMMENTS: Consistent with the [employer]'s Incidental Findings Committee white paper (J Am Keyona Radiol 2018): Any incidental renal lesion less than 1 cm or classified as too small to characterize, or any incidental cystic renal lesion characterized as simple-appearing, is likely benign. No follow-up imaging is recommended for these lesions per consensus recommendations based on imaging criteria.
--- NOTE | 2021-11-19 17:44 | PC.NURSE ---
pt feeling much better after toradol
[2021-11-19 17:49] LABS: Microscopic, Urine URINE MICROSCOPIC (MICROSCOPIC)
[2021-11-19 17:58] LABS: Appearance,Urine CLEAR (Clear); Bilirubin,Urine Negative (Negative); Blood, Urine 3+ (Negative); Chloride 100 mmol/L (98-107); Color,Urine YELLOW (Yellow); Glucose,Urine (UA) Negative (Negative); Ketones,Urine Negative (Negative); Leukocyte Esterase,Urine 1+ (Negative); Nitrate,Urine Negative (Negative); Potassium 3.9 mmoL/L (3.5-5.1); Protein,Urine TRACE (Negative); Sodium 138 mmol/L (136-145); Specific Gravity, Urine 1.015 (1.005-1.030)
[2021-11-19 17:59] LABS: Basophils % 0.3 % (0.1-2.0); Eosinophils # 0.2 K/mm3 (0.0-0.4); Eosinophils % 1.8 % (0.1-12.0); Hematocrit 41.5 % (42.0-52.0); Hemoglobin 13.7 g/dL (14.1-18.0); Lymphocytes # 2.4 K/mm3 (0.7-4.5); Lymphocytes % 18.5 % (10-50); Mean Corpuscular Hemoglobin 28.5 pg (27.0-31.2); Mean Corpuscular Volume 86.4 fl (80-94); Mean Platelet Volume 7.3 fl (7.4-10.4); Monocytes # 0.8 K/mm3 (0.1-1.0); Neutrophils # 9.5 K/mm3 (1.8-7.8); Neutrophils % 73.4 % (37.0-80.0); Platelet Count 307 K/mm3 (142-424); Red Cell Distribution Width 12.8 % (11.5-17.5)
[2021-11-19 18:01] LABS: Alanine Aminotransferase 27 U/L (12-78); Albumin Level 4.4 g/dl (3.5-5.0); Albumin/Globulin Ratio 1.5 (1.1-1.8); Alkaline Phosphatase 58 U/L (38-126); Anion Gap 11.9 mEq/L (5-15); Aspartate Amino Transferase 28 U/L (17-59); Bilirubin,Total 0.3 mg/dl (0.2-1.3); Blood Urea Nitrogen 14 mg/dl (9-20); Calcium 8.8 mg/dl (8.4-10.2); Carbon Dioxide 30 mmol/L (22.0-30.0); Creatinine Clearance Estimated 192 mL/min (50-200); Estimated Glomerular Filt Rate 115 ml/min (>60); GFR (African American) 139 ML/MIN (>60); Glucose 121 mg/dl (74-100); Total Protein,Serum 7.4 g/dl (6.3-8.2)
--- NOTE | 2021-11-19 18:02 | HMH.EDGENADL ---
ED Disposition Clinical Impression: Hematuria Qualifiers: Hematuria type: unspecified type Qualified Code(s): R31.9 - Hematuria, unspecified UTI (urinary tract infection) Qualifiers: Urinary tract infection type: site unspecified Hematuria presence: with hematuria Qualified Code(s): N39.0 - Urinary tract infection, site not specified Disposition: Home, Self-Care Condition on Discharge: Good Additional Instructions: Additional instructions for URINARY TRACT INFECTION: Take antibiotic as prescribed. See your physician in 2-3 days for follow up and culture results. Return immediately if you have an uncontrollable fever greater than 102 degrees, severe back or abdominal pain, inability to urinate, or repetitive vomiting. Ibuprofen for pain. Follow-up with urology, Dr. Back, call for appointment. Prescriptions: Ciprofloxacin HCl [Cipro 500mg Tab] 500 mg PO BID #20 tab Transmission Status: Pending to [facility]/pharmacy #[id number] Referrals: Juanjose Rodriguez MD [Primary Care Provider] - Nic Back MD [Staff Physician] - - Critical Care Critical Care Time: No Attestation: On 11/19/21, the high probability of a clinically significant, sudden or life threatening deterioration of the following system(s) required my full and direct attention, intervention and personal management. The time I documented below is in addition to time spent performing reported procedures but includes the following listed in this critical care notation. Medical Decision Making - Jarrett Inquiry Pt receiving controlled substance: Yes Jarrett was queried for this patient: Yes Risks and benefits of using a controlled substance: were discussed with pt by me Vital Signs: 11/19/21 17:01 11/19/21 18:15 Temperature 98.4 F Temperature Source Oral Pulse Rate 76 Pulse Rate [Right Radial] 86 Respiratory Rate 18 18 Blood Pressure 158/78 H Blood Pressure [Right Arm] 162/91 H Blood Pressure Mean [Right Arm] 114 Blood Pressure Source [Right Arm] Automatic Cuff Blood Pressure Position [Right Arm] Sitting 02 Sat by Pulse Oximetry 97 97 Oxygen Delivery Method Room Air - Lab Data Lab Results 11/19/21 17:30: WBC 13.0 H, RBC 4.80, Hgb 13.7 L, Hct 41.5 L, MCV 86.4, MCH 28.5, MCHC 33.0, RDW 12.8, Plt Count 307, MPV 7.3 L, Neut % (Auto) 73.4, Lymph % (Auto) 18.5, Will % (Auto) 6.0, Eos % (Auto) 1.8, Baso % (Auto) 0.3, Neut # (Auto) 9.5 H, Lymph # (Auto) 2.4, Will # (Auto) 0.8, Eos # (Auto) 0.2, Baso # (Auto) 0.0 11/19/21 17:30: Sodium 138, Potassium 3.9, Chloride 100, Carbon Dioxide 30, Anion Gap 11.9, BUN 14, Creatinine 0.70, Estimated Creat Clear 192, Estimated GFR 115, Est GFR ( Amer) 139, Glucose 121 H, Calcium 8.8, Total Bilirubin 0.3, AST 28, ALT 27, Alkaline Phosphatase 58, Total Protein 7.4, Albumin 4.4, Globulin 3.0, Albumin/Globulin Ratio 1.5 11/19/21 17:30: Urine Color Yellow, Urine Appearance Clear, Urine pH 6.0, Ur Specific [place] 1.015, Urine Protein Trace, Urine Glucose (UA) Negative, Urine Ketones Negative, Urine Blood 3+, Urine Nitrate Negative, Urine Bilirubin Negative, Urine Urobilinogen 1.0, Ur Leukocyte Esterase 1+ A, Urine RBC 20-50, Urine WBC 10-20, Ur Squamous Epith Cells 3-5, Urine Bacteria 1+ Result diagrams: 11/19/21 17:30 11/19/21 17:30 Orders (Tests/Meds): ED MEDICATIONS Generic Name Dose Route Start Last Admin Trade Name Freq PRN Reason Stop Dose Admin Sodium Chloride 1,000 mls @ 999 mls/hr 11/19/21 17:45 11/19/21 17:42 Sod Chlor 0.9% 1000ml Bag IV 11/19/21 18:45 999 mls/hr .Q1H1M KELLY Administration Ceftriaxone Sodium 1 gm/ 50 mls @ 100 mls/hr 11/19/21 19:30 Sodium Chloride IV 12/03/21 19:29 Q24H KELLY Discontinued Medications Generic Name Dose Route Start Last Admin Trade Name Freq PRN Reason Stop Dose Admin Ketorolac Tromethamine 30 mg 11/19/21 17:38 11/19/21 17:42 Ketorolac 30mg/Ml Vial IV 11/19/21 17:39 30 mg ONCE ONE Administration Morphine Sulfate 4
--- NOTE | 2021-11-19 18:14 | PC.NURSE ---
pt's pain started coming back meds given
[2021-11-19 18:15] VITALS: BP 158/78; PULSE 76; RESP 18; O2SAT 97
[2021-11-19 18:52] LABS: Bacteria,Urine 1+ /lpf; RBC,Urine 20-50 #/hpf (0-3)
[2021-11-19 20:02] VITALS: BP 166/78; PULSE 83; RESP 20; TEMP 36.8; O2SAT 99
== END 2021-11-19 20:04 | disposition home or self-care (01) ==
PROVIDERS: Emergency Provider Emergency Medicine; PCP Family Medicine
DX: N30.01 Acute cystitis with hematuria (principal); B96.20 Unspecified Escherichia coli [E. coli] as the cause of diseases classified elsewhere; N41.1 Chronic prostatitis; I25.10 Atherosclerotic heart disease of native coronary artery without angina pectoris; E11.9 Type 2 diabetes mellitus without complications; K21.9 Gastro-esophageal reflux disease without esophagitis; F41.8 Other specified anxiety disorders; E78.5 Hyperlipidemia, unspecified; I10 Essential (primary) hypertension; R00.2 Palpitations; F17.210 Nicotine dependence, cigarettes, uncomplicated; Z79.899 Other long term (current) drug therapy
CPT/HCPCS: 74176; 80053; 81001; 85025; 87086; 87088; 87186; 96365; 96375; 99283; J2405

== ENCOUNTER → 2021-12-06 14:40 | Outpatient (CLI) | payer MEDICARE, BC, SELFPAY ==
[2021-12-06 15:56] LABS: Alanine Aminotransferase 42 U/L (12-78); Albumin Level 4.5 g/dl (3.5-5.0); Alkaline Phosphatase 56 U/L (38-126); Anion Gap 15.8 mEq/L (5-15); Aspartate Amino Transferase 33 U/L (17-59); Bilirubin,Direct 0.3 mg/dl (0.0-0.4); Bilirubin,Indirect 0.2 mg/dL (0.0-0.9); Bilirubin,Total 0.5 mg/dl (0.2-1.3); Bilirubin,Unconjugated 0.2 mg/dL (0.0-1.1); Blood Urea Nitrogen 20 mg/dl (9-20); Calcium 9.4 mg/dl (8.4-10.2); Carbon Dioxide 25 mmol/L (22.0-30.0); Chloride 100 mmol/L (98-107); Chol/HDL Ratio 4.2 (1-3.5); Cholesterol 158 mg/dl (140-200); Estimated Glomerular Filt Rate 99 ml/min (>60); GFR (African American) 119 ML/MIN (>60); Glucose 97 mg/dl (74-100); HDL Cholesterol 38 mg/dl (40-60); Potassium 4.8 mmoL/L (3.5-5.1); Sodium 136 mmol/L (136-145); Total Protein,Serum 7.2 g/dl (6.3-8.2); Triglycerides 194 mg/dl (30-150); VLDL Cholesterol 39 mg/dL (0-40)
[2021-12-06 16:07] LABS: Direct LDL Cholesterol 95.69 mg/dL (100-129)
[2021-12-06 16:27] LABS: Prostate Specific Ag Screen 1.6 ng/ml (0.0-4.0)
== END ==
PROVIDERS: Internal Medicine Cardiovascular Disease; PCP Family Medicine; Visit Provider Urology
DX: E78.2 Mixed hyperlipidemia (principal); I10 Essential (primary) hypertension; I25.10 Atherosclerotic heart disease of native coronary artery without angina pectoris; N52.9 Male erectile dysfunction, unspecified; E78.5 Hyperlipidemia, unspecified; R06.00 Dyspnea, unspecified; R40.0 Somnolence; R07.89 Other chest pain; Z12.5 Encounter for screening for malignant neoplasm of prostate
CPT/HCPCS: 36415; 80048; 80061; 80076; G0103

== ENCOUNTER → 2021-12-11 17:02 | Outpatient (CLI) | payer MEDICARE, BC, SELFPAY ==
[2021-12-11 18:57] LABS: Ferritin 190 ng/ml (17.9-464)
== END ==
PROVIDERS: Visit Provider Nurse Practitioner Family
DX: E83.10 Disorder of iron metabolism, unspecified (principal)
CPT/HCPCS: 36415; 82728

== ENCOUNTER → 2022-02-24 14:51 | Outpatient (CLI) | payer MEDICARE, BC, SELFPAY ==
--- NOTE | 2022-02-24 14:55 | XR_ITS ---
FINAL REPORT CLINICAL HISTORY: back pain FINDINGS: LUMBAR SPINE Three views were obtained. There is no acute fracture. There is no malalignment. There are mild degenerative changes with osteophytes. There is vacuum disc phenomenon at L5-S1. There are mild vascular calcifications. IMPRESSION: Degenerative changes as described. Reviewed, Interpreted and Dictated by Constantine Montesinos III, MD Transcribed by Freda Carney Authenticated by Constantine Montesinos III, MD on 02/24/2022 04:01:58 PM [facility]
== END ==
PROVIDERS: PCP Family Medicine; Visit Provider Specialist
DX: G89.29 Other chronic pain (principal); M54.50 Low back pain, unspecified; M79.604 Pain in right leg; M79.605 Pain in left leg
CPT/HCPCS: 72100

== ENCOUNTER → 2022-04-21 07:29 | Outpatient (CLI) | payer MEDICARE, BC, SELFPAY ==
[2022-04-30 10:13] LABS: Testosterone,Free 6.7 pg/mL (6.6-18.1)
== END ==
PROVIDERS: Visit Provider Urology
DX: E29.1 Testicular hypofunction (principal)
CPT/HCPCS: 36415; 84402; 84403

== ENCOUNTER → 2022-05-08 08:13 | Outpatient (CLI) | payer MEDICARE, BC, SELFPAY ==
--- NOTE | 2022-05-08 08:17 | XR_ITS ---
FINAL REPORT CLINICAL HISTORY: RT KNEE PAIN, fell down a hill 1 week ago , right medial knee pain COMPARISON: July 26, 2021 FINDINGS: Three views of the right knee reveal no evidence of fracture or dislocation. The bony alignment is normal. There is mild degenerative change. There is no evidence of joint effusion. No localized soft tissue abnormality is identified. IMPRESSION: Degenerative change with no acute abnormality identified. Reviewed, Interpreted and Dictated by Constantine Montesinos III, MD Transcribed by Lisa Johnson Authenticated and [facility]
== END ==
PROVIDERS: PCP Family Medicine; Visit Provider Nurse Practitioner
DX: M25.561 Pain in right knee (principal)
CPT/HCPCS: 73562

== ENCOUNTER → 2022-05-12 10:58 | Outpatient (CLI) | payer MEDICARE, BC, SELFPAY ==
--- NOTE | 2022-05-12 11:01 | MR_ITS ---
FINAL REPORT CLINICAL HISTORY: ACUTE PAIN OF RT KNEE. MEDIAL SIDED KNEE PAIN [id number] SINCE FALL. KNEE INSTABILITY. KNEE POPPING. COMPARISON: August 12, 2021 FINDINGS: Multiplanar MR imaging of the right knee was performed without contrast. There is medial meniscal degeneration with a tear of the posterior horn. The lateral meniscus is intact. The anterior and posterior cruciate ligaments are intact. The medial collateral ligament and lateral ligamentous complex are intact. The patellar and quadriceps tendons are intact. There is no evidence of fracture. There is moderate to severe chondromalacia of the patella worse at the patellofemoral compartment. A small joint effusion is seen. The musculature is intact. No soft tissue mass or cyst is identified. IMPRESSION: Medial meniscal degeneration with a tear of the posterior horn. 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 Small joint effusion. Reviewed, Interpreted and Dictated by Constantine Montesinos III, MD Transcribed by Addison Tobias Authenticated and . [facility]
== END ==
PROVIDERS: PCP Family Medicine; Visit Provider Nurse Practitioner
DX: M25.561 Pain in right knee (principal)
CPT/HCPCS: 73721

== ENCOUNTER → 2022-10-29 08:18 | Outpatient (CLI) | payer MEDICARE, BC, SELFPAY ==
[2022-10-29 18:21] LABS: Influenza A, PCR Not Detected (NotDetected); Influenza B, PCR Not Detected (NotDetected)
[2022-10-29 19:33] LABS: Coronavirus 19, PCR Detected (NotDetected)
== END ==
PROVIDERS: PCP Nurse Practitioner; Visit Provider Nurse Practitioner
DX: U07.1 COVID-19
CPT/HCPCS: C9803; U0003; U0005

== ENCOUNTER → 2023-04-29 11:27 | Outpatient (CLI) | payer MEDICARE, BC, SELFPAY ==
--- NOTE | 2023-04-29 11:28 | NM_ITS ---
APPROVED REPORT Exam: Nuclear Stress Test Indication: chest pain..soa Patient Location: Outpatient Stress Tech: Tracy Fajardo VINAYAK Tech:Daria Burnett JIGNA RT(R)(N) Ht: 5 ft 6 in Wt: 265 lbs HR: 65 bpm BP: 143/79 mmHg BSA: 2.25 m2 TID: 1.24 BMI: 42.7 History: chest pain..soa Procedure: Patient received 0.4 mg of intravenous Lexiscan, resting heart rate 65 bpm, resting blood pressure 143/79 mmHg, with Lexiscan maximum heart rate achieved was 90 bpm which is 85 % of the maximum predicted heart rate and blood pressure was 143/79 mmHg. Cardiac Stress and Resting SPECT Images: Cardiac Stress and Resting SPECT images were obtained using technetium 99m Myoview 32.5 mCi stress and 10.52 mCi at rest. Resting and supine stress imaging demonstrate a large-sized fixed perfusion defect in the inferior LV wall and a small fixed perfusion defect in the anterior LV wall. Both defects are no longer visualized with prone stress imaging. Findings are suggestive of breast and diaphragmatic attenuation. There is mild increase in transient ischemic dilatation ratio (TID 1.24), suggestive of possible balanced ischemia or multivessel disease. Gated imaging demonstrates normal global and regional LV systolic function. LVEF is calculated at 53% Conclusion: Large-sized fixed perfusion defect in the inferior LV wall and a small fixed perfusion defect in the anterior LV wall. Both defects are no longer visualized with prone stress imaging. Findings are suggestive of soft tissue attenuation. There is no definite reversible ischemia. Mild increase in transient ischemic dilatation ratio (TID 1.24), suggestive of possible balanced ischemia or multivessel disease. Gated imaging demonstrates normal global and regional LV systolic function. LVEF is calculated at 53%. Compared to prior study from 2020, the fixed inferior perfusion defect remains unchanged, whereas the anterior defect is new. Electronically signed by : Smita Ramsey, 04/30/2023 00:37:37
--- NOTE | 2023-04-29 14:34 | CA_ITS ---
APPROVED REPORT Exam: Pharmacologic Technologist: Tracy Fajardo Ht: 6 ft 0 in Wt: 267 lbs BSA: 2.41 m2 HR: 60 bpm BP: 143/79 mmHg Rhythm: NSR Indications: Chest pain, dyspnea Medical History Medications: Lorazepam,,,,, Omeprazole,,,,, Metformin,,,,, Ferrous sulfate,,,,, Gabapentin,,,,, Losartan,,,,, Atorvastatin,,,,, TAMSULOSIN,,,,, Albuterol,,,,, MeLOXICAM,,,,, DulOXETINE,,,,, Vitamin B,,,,, Stress Test Details Test: LEXISCAN HR Resting HR: 65 bpm Max Heart Rate (APMHR): 158 bpm Max HR Achieved: 90 bpm Target HR (85% APMHR): 134 bpm % of APMHR: 57 Recovery HR: 71 bpm BP Resting BP: 143.0/79.0 mmHg Max BP: 143.0/79.0 mmHg Recovery BP: 136.0/80.0 mmHg ECG Resting ECG: Normal sinus rhythm Stress ECG: No change Arrhythmia: None Recovery ECG: No change Recovery Arrhythmia: None Clinical Exercise duration: 04:04 min Highest Stage Achieved: Stress ECG Conclusion Symptoms: Shortness of air, headache, shaky. Arrhythmias/Ectopy: None ST-T Changes: No significant changes. Conclusion: Unremarkable Lexiscan stress. Myoview images reported separately. Test Summary REST . . . . . . . Resting REST 04:51 . . 65 . 143/ 79 . . Stage 1 . . . . . . . Myoview Injected Stage 1 01:00 . . 65 . . . . Stage 2 01:00 . . 85 . 134/ 71 . . Stage 3 01:00 . . 77 . 142/ 75 . . Stage 4 01:00 . . 79 . 127/ 80 . . Stage 4 01:04 . . 81 . 127/ 80 . Stop exercise at 04:04 RECOVERY 01:00 . . 79 . . . . RECOVERY 02:00 . . 68 . . . . RECOVERY 03:00 . . 69 . 132/ 78 . . RECOVERY 03:29 . . 77 . 136/ 80 . . Electronically signed by : Smita Ramsey, 04/30/2023 00:21:29
[2023-04-29 17:01] LABS: Ferritin 198 ng/ml (17.9-464)
== END ==
PROVIDERS: Nurse Practitioner Family; PCP Nurse Practitioner; Visit Provider Physician Assistant
DX: E78.2 Mixed hyperlipidemia (principal); G47.33 Obstructive sleep apnea (adult) (pediatric); I10 Essential (primary) hypertension; I25.10 Atherosclerotic heart disease of native coronary artery without angina pectoris; N52.9 Male erectile dysfunction, unspecified; R06.00 Dyspnea, unspecified; R07.89 Other chest pain; E83.10 Disorder of iron metabolism, unspecified
CPT/HCPCS: 36415; 78452; 82728; 93017; 93306; A9502; J2785

== ENCOUNTER 2023-05-11 08:09 | Day surgery (SDC) | payer MEDICARE, BC, SELFPAY ==
[2023-05-11] VITALS (11 sets, daily range): BP systolic 126–168; BP diastolic 77–93; PULSE 54–67; RESP 16–18; O2SAT 94–98; BMI 34.4
--- NOTE | 2023-05-11 07:13 | IR_ITS ---
APPROVED REPORT Patient Location: Outpatient Parts Back Counter Man: JIGNA Martin RT (R) PROCEDURES Selective coronary angiogram Drug-eluting stent deployment to the proximal and mid LAD in a contiguous manner INDICATION Angina pectoris, Coronary artery disease, High risk abnormal Myoview anterior ischemia Informed consent was obtained prior to the procedure. COMPLICATIONS NONE Estimated Blood Loss: LESS THAN 10 ML TECHNIQUE One percent lidocaine used to anesthetize the right anterior aspect of the wrist. The right radial artery was accessed via the Seldinger technique. A 6 Maori sheath was placed in the right radial artery. 150 mg magnesium sulfate, 800 mcg of nitroglycerin, 1mg Lidocaine and 5000 U Heparin were given through the arterial sheath. The papa catheter was also used to perform selective coronary angiography. At the end the diagnostic angiogram therapeutic heparin was administered giving a therapeutic ACT and the guide catheter was placed in left main artery followed by Choice PT extra-support wire being placed on the LAD. A 3 mm x 38 mm [place] frontier stent was deployed at 20 lexii reducing the stenosis. An additional 3.5 x 26 mm Ignacio frontier stent was placed proximal to this yet still overlapping it and deployed at 20 lexii. The balloon could not be advanced into the 3 mm stent. Because of this a fresh 3.5 x 20 mm noncompliant balloon was then advanced into the mid LAD and deployed at 20 and 22 lexii to further post dilate the 3 mm stent. The small edge dissection was identified at the distal portion of the 3 mm stent therefore 2.5 x 12 mm [place] frontier stent was placed distal to this and deployed it 20 lexii reducing the stenosis to 0%. The balloon was brought back and deployed at 22 and then 24 lexii to post dilate. RAÚL-3 flow was present before and after the procedure. At the end the procedure the apparatus was removed the sheath was removed and hemostasis was achieved using TR banding patient was transferred to the postop putting in stable condition ANGIOGRAPHIC RESULTS The left main artery Has an ostial 20 to 30% stenosis The left anterior descending artery Has a proximal eccentric 40% stenosis followed by an additional mid vessel 50% and then 60 to 70% stenosis followed by an additional concentric 60 to 70% stenosis. The circumflex artery Is nondominant and has proximal and mid vessel 30 to 40% stenosis The right coronary artery Is a large dominant vessel and has a mid vessel 40 to 50% stenosis with an additional 40% stenosis along tortuous The LOZADA ventriculogram reveals Not performed The left ventricular end-diastolic pressure Not measured IMPRESSION Mild to moderate ostial left main disease as described above Moderate to severe tandem lesions throughout the proximal and mid LAD which collectively accounts for the high risk abnormal Myoview Successful stenting the proximal to mid LAD hemodynamically severe disease reduced to 0% with 3 contiguous drug-eluting stents Persistent moderate stenosis in the large proximal to mid nondominant circumflex artery Persistent moderate stenosis in the mid and distal dominant right coronary PLAN 1. Dual antiplatelet therapy 2. LDL less than 55 to be achieved with high intensity statin 3. Aggressive risk factor modification 4. Avoidance of tobacco products 5. Cardiac rehabilitation Electronically signed by : Hugh Amado MD 05/11/2023 10:28:09
[2023-05-11 09:31] LABS: Basophils % 0.5 % (0.1-2.0); Chloride 102 mmol/L (98-107); Eosinophils # 0.3 K/mm3 (0.0-0.4); Eosinophils % 3.6 % (0.1-12.0); Hematocrit 43.2 % (42.0-52.0); Hemoglobin 13.6 g/dL (14.1-18.0); Lymphocytes # 2.3 K/mm3 (0.7-4.5); Lymphocytes % 27.8 % (10-50); Mean Corpuscular HGB Conc 31.5 g/dL (31.8-35.4); Mean Corpuscular Hemoglobin 27.8 pg (27.0-31.2); Mean Corpuscular Volume 88.4 fl (80-94); Monocytes # 0.5 K/mm3 (0.1-1.0); Neutrophils # 5.2 K/mm3 (1.8-7.8); Neutrophils % 62.2 % (37.0-80.0); Platelet Count 347 K/mm3 (142-424); Potassium 4.4 mmoL/L (3.5-5.1); Red Blood Count 4.89 M/mm3 (4.60-6.20); Red Cell Distribution Width 13.9 % (11.5-17.5); Sodium 140 mmol/L (136-145); White Blood Count 8.4 K/mm3 (4.8-10.8)
[2023-05-11 09:34] LABS: Anion Gap 14.4 mEq/L (5-15); Blood Urea Nitrogen 15 mg/dl (9-20); Carbon Dioxide 28 mmol/L (22.0-30.0); Creatinine Clearance Estimated 125 mL/min (50-200); Estimated Glomerular Filt Rate 114 ml/min (>60); GFR (African American) 138 ML/MIN (>60)
[2023-05-11 09:35] LABS: Calcium 8.5 mg/dl (8.4-10.2); Glucose 121 mg/dl (74-100)
[2023-05-11 11:26] LABS: CATHL Activated Clotting Time 259 SEC (74-125)
--- NOTE | 2023-05-11 13:05 | HMH.PHACL ---
PHA Director Social Welfare Discharge Med Bag Worker: Denis Pinedo Scotty has received discharge medication counseling on the following medications: ASPIRIN BRILINTA (NEW) ATORVASTATIN LOSARTAN BISOPROLOL PATIENT HAD NO QUESTIONS OR CONCERNS AT THIS TIME. -FRANCK ACED
== END 2023-05-11 13:21 | disposition home or self-care (01) ==
PROVIDERS: PCP Family Medicine; Visit Provider Internal Medicine
DX: I25.119 Atherosclerotic heart disease of native coronary artery with unspecified angina pectoris (principal); R94.39 Abnormal result of other cardiovascular function study; I10 Essential (primary) hypertension; E78.5 Hyperlipidemia, unspecified; F32.9 Major depressive disorder, single episode, unspecified; Z87.891 Personal history of nicotine dependence
CPT/HCPCS: 80048; 85025; 85347; 92928; 93458; 99152; C1725; C1760; C1769; C1874; C1876; C9600; J1644; Q9967

== ENCOUNTER → 2023-05-22 08:32 | Outpatient (CLI) | payer MEDICARE, BC, SELFPAY ==
[2023-05-22 09:29] LABS: Basophils # 0.1 K/mm3 (0-0.2); Basophils % 0.6 % (0.1-2.0); Eosinophils # 0.4 K/mm3 (0.0-0.4); Eosinophils % 4.3 % (0.1-12.0); Hematocrit 42.4 % (42.0-52.0); Hemoglobin 13.7 g/dL (14.1-18.0); Lymphocytes # 2.2 K/mm3 (0.7-4.5); Lymphocytes % 26.9 % (10-50); Mean Corpuscular HGB Conc 32.3 g/dL (31.8-35.4); Mean Corpuscular Hemoglobin 27.5 pg (27.0-31.2); Mean Platelet Volume 7.8 fl (7.4-10.4); Monocytes # 0.5 K/mm3 (0.1-1.0); Neutrophils # 5.1 K/mm3 (1.8-7.8); Neutrophils % 62.2 % (37.0-80.0); Platelet Count 324 K/mm3 (142-424); Red Blood Count 4.99 M/mm3 (4.60-6.20); Red Cell Distribution Width 13.6 % (11.5-17.5); White Blood Count 8.3 K/mm3 (4.8-10.8)
[2023-05-22 10:12] LABS: Anion Gap 15.7 mEq/L (5-15); Blood Urea Nitrogen 13 mg/dl (9-20); Calcium 8.7 mg/dl (8.4-10.2); Carbon Dioxide 25 mmol/L (22.0-30.0); Chloride 103 mmol/L (98-107); Estimated Glomerular Filt Rate 114 ml/min (>60); GFR (African American) 138 ML/MIN (>60); Glucose 133 mg/dl (74-100); Potassium 4.7 mmoL/L (3.5-5.1); Sodium 139 mmol/L (136-145)
== END ==
PROVIDERS: PCP Family Medicine; Visit Provider Internal Medicine
DX: E78.2 Mixed hyperlipidemia (principal); I10 Essential (primary) hypertension; R06.00 Dyspnea, unspecified; I20.8 Other forms of angina pectoris
CPT/HCPCS: 36415; 80048; 85025

== ENCOUNTER 2023-06-01 13:57 | Outpatient (RCR) | payer MEDICARE, BC, SELFPAY | END 2023-07-10 13:00 | disposition home or self-care (01) | LOC: PT 13:57 | PROVIDERS: Visit Provider Internal Medicine | DX: I25.10 Atherosclerotic heart disease of native coronary artery without angina pectoris (principal); Z95.5 Presence of coronary angioplasty implant and graft | CPT/HCPCS: 93798 ==

== ENCOUNTER → 2023-06-08 14:43 | Outpatient (CLI) | payer MEDICARE, BC, SELFPAY | PROVIDERS: Visit Provider Nurse Practitioner Psychiatric/Mental Health | DX: Z79.899 Other long term (current) drug therapy (principal) | CPT/HCPCS: 83036 ==

== ENCOUNTER → 2023-08-18 11:00 | Outpatient (CLI) | payer MEDICARE, BC, SELFPAY ==
[2023-08-18 19:56] LABS: Alanine Aminotransferase 35 U/L (12-78); Albumin Level 4.4 g/dl (3.5-5.0); Albumin/Globulin Ratio 1.4 (1.1-1.8); Alkaline Phosphatase 88 U/L (38-126); Anion Gap 16.5 mEq/L (5-15); Aspartate Amino Transferase 29 U/L (17-59); Bilirubin,Total 0.4 mg/dl (0.2-1.3); Blood Urea Nitrogen 13 mg/dl (9-20); Calcium 9.2 mg/dl (8.4-10.2); Carbon Dioxide 24 mmol/L (22.0-30.0); Chloride 104 mmol/L (98-107); Chol/HDL Ratio 4.2 (1-3.5); Cholesterol 162 mg/dl (140-200); Estimated Glomerular Filt Rate 114 ml/min (>60); GFR (African American) 138 ML/MIN (>60); Globulin 3.1 g/dL (1.3-3.2); Glucose 139 mg/dl (74-100); HDL Cholesterol 39 mg/dl (40-60); Potassium 4.5 mmoL/L (3.5-5.1); Sodium 140 mmol/L (136-145); Total Protein,Serum 7.5 g/dl (6.3-8.2); Triglycerides 139 mg/dl (30-150); VLDL Cholesterol 28 mg/dL (0-40)
[2023-08-18 20:06] LABS: Direct LDL Cholesterol 93.02 mg/dL (100-129)
[2023-08-18 20:25] LABS: Thyroid Stimulating Hormone 0.85 uIU/mL (0.465-4.68)
[2023-08-18 20:44] LABS: Vitamin B12 972 pg/mL (239-931)
[2023-08-18 21:47] LABS: Hemoglobin A1C 7.1 % (4.0-6.0)
[2023-08-18 22:04] LABS: Microalbumin/Creatinine Ratio 10.9
[2023-08-18 22:05] LABS: Creatinine,Urine Random 131 mg/dL (Not Estab.)
== END ==
PROVIDERS: PCP Nurse Practitioner; Visit Provider Nurse Practitioner
DX: E11.9 Type 2 diabetes mellitus without complications (principal); E53.8 Deficiency of other specified B group vitamins; E78.5 Hyperlipidemia, unspecified; I10 Essential (primary) hypertension; Z12.5 Encounter for screening for malignant neoplasm of prostate; I25.10 Atherosclerotic heart disease of native coronary artery without angina pectoris
CPT/HCPCS: 80053; 80061; 82043; 82570; 82607; 83036; 84443; G0103

== ENCOUNTER 2023-09-12 13:47 | Emergency (ER) | payer MEDICARE, BC, SELFPAY ==
[2023-09-12 14:00] VITALS: BP 121/67; PULSE 73; RESP 20; TEMP 36.8; O2SAT 95; BMI 36.1
--- NOTE | 2023-09-12 14:21 | EXP.UTC ---
Discharge Plan Disposition Patient Disposition: Home, Self-Care Condition: Good Prescriptions Prescriptions: New oseltamivir [Tamiflu] 75 mg capsule 75 mg PO BID 5 Days Qty: 10 0RF benzonatate 100 mg capsule 100 mg PO TID PRN (Reason: cough) Qty: 30 0RF No Action vitamin B complex [B Complex-Vitamin B12] Tablet 1 tab PO DAILY Lybalvi 5-10 mg tablet 1 tab PO QHS Qty: 90 0RF desvenlafaxine succinate [Pristiq] 100 mg tablet extended release 24 hr 100 mg PO DAILY Qty: 90 1RF Slow Fe 142 mg (45 mg iron) tablet extended release 142 mg PO BID albuterol sulfate 90 mcg/actuation HFA aerosol inhaler 1 inh INHALATION DAILY lorazepam 0.5 mg tablet 0.5 mg PO TID PRN (Reason: anxiety) Qty: 90 3RF melatonin 5 mg tablet 10 mg PO HS methylprednisolone [Medrol (Smtih)] 4 mg tablets,dose pack See Rx Instructions PO PER PKG DIR Qty: 21 0RF Rx Instructions: PO PER PKG DIR oxycodone-acetaminophen [Percocet] 10-325 mg tablet 1 tab PO TID PRN (Reason: pain) Qty: 45 0RF sildenafil 100 mg tablet 100 mg PO DAILY PRN (Reason: ED) Qty: 30 4RF clopidogrel [Plavix] 75 mg tablet 75 mg PO QDAY Qty: 30 5RF furosemide 20 mg tablet See Rx Instructions .ROUTE .COMPLEX Qty: 30 4RF Rx Instructions: TAKE 1 TABLET BY MOUTH IN THE MORNING Horizant 600 mg tablet extended release 600 mg PO DAILY 30 Days Qty: 30 2RF Rx Instructions: administer daily at approximately 5 PM with food/evening meal atorvastatin 40 mg tablet 40 mg PO HS Qty: 90 0RF levetiracetam 500 mg tablet See Rx Instructions .ROUTE .COMPLEX Qty: 90 7RF Dose Instruction: TAKE 1 TABLET BY MOUTH TWICE DAILY FOR SEIZURE Rx Instructions: TAKE 1 TABLET BY MOUTH TWICE DAILY FOR SEIZURE losartan 50 mg tablet 50 mg PO DAILY meloxicam 15 mg tablet See Rx Instructions .ROUTE .COMPLEX Rx Instructions: TAKE 1 TABLET BY MOUTH DAILY omeprazole 40 mg capsule,delayed release(DR/EC) See Rx Instructions .ROUTE .COMPLEX Rx Instructions: TAKE ONE TABLET BY MOUTH ONCE DAILY bisoprolol fumarate 5 mg tablet See Rx Instructions .ROUTE .COMPLEX Rx Instructions: TAKE 1 TABLET BY MOUTH ONCE DAILY duloxetine 60 mg capsule,delayed release(DR/EC) See Rx Instructions .ROUTE .COMPLEX Rx Instructions: TAKE 1 CAPSULE BY MOUTH DAILY FOR ANXIETY eszopiclone 3 mg tablet 3 mg PO HS aspirin 81 mg Tablet,Chewable 81 mg PO DAILY 30 Days Qty: 30 3RF Referrals Follow up/Referrals: Juanjose Rodriguez MD [Primary Care Provider] - See instructions Activity Restrictions/Add. Instructions Additional Instructions/Restrictions: Start Tamiflu today if you are going to take it. Discussed risk and possible benefits. Lots of rest Increase Fluids water, Gatorade, powerade, pedialyte,if /toddler/child Alternate Tylenol and / or ibuprofen as discussed for fever, aches, chills Follow up IMMEDIATELY with your family doctor for new or worsening Symptoms OR no noticeable improvement over the next 48-72 hours, 911 for difficulty or breathing You or your child area contagious until no fever, aches, chills for 24 hours with medication for symptoms Help Prevent the spread of influenza: ?Wash your hands often. Use soap and water. Wash your hands after you use the bathroom, change a child's diapers, or sneeze. Wash your hands before you prepare or eat food. Use gel hand cleanser that has 60% alcohol, when soap and water are not available. Do not touch your eyes, nose, or mouth unless you have washed your hands first. Cover your mouth when you sneeze or cough. Cough into a tissue or the bend of your arm. If you use a tissue, throw it away immediately and wash your hands. Clean shared items with a germ-killing basin cleaner. Clean t
[2023-09-12 14:25] LABS: UTC Influenza A Antigen Positive (Negative); UTC Influenza B Antigen Negative (Negative)
[2023-09-12 14:43] VITALS: BP 121/67; PULSE 73; RESP 20; TEMP 36.8; O2SAT 95
== END 2023-09-12 14:48 | disposition home or self-care (01) ==
PROVIDERS: Emergency Provider Nurse Practitioner; PCP Family Medicine
DX: J10.1 Influenza due to other identified influenza virus with other respiratory manifestations (principal); E11.9 Type 2 diabetes mellitus without complications; I25.10 Atherosclerotic heart disease of native coronary artery without angina pectoris; I11.9 Hypertensive heart disease without heart failure; E78.5 Hyperlipidemia, unspecified; G47.00 Insomnia, unspecified; F41.9 Anxiety disorder, unspecified; F33.9 Major depressive disorder, recurrent, unspecified; Z87.891 Personal history of nicotine dependence
CPT/HCPCS: 87804; 99204; 99212; G0463

== ENCOUNTER → 2023-09-21 09:12 | Outpatient (CLI) | payer MEDICARE, BC, SELFPAY ==
[2023-09-21 11:07] LABS: Ferritin 418 ng/ml (17.9-464)
== END ==
PROVIDERS: PCP Family Medicine; Visit Provider Specialist
DX: E11.8 Type 2 diabetes mellitus with unspecified complications (principal)
CPT/HCPCS: 36415; 82728

== ENCOUNTER → 2023-09-21 09:29 | Outpatient (CLI) | payer MEDICARE, BC, SELFPAY ==
--- NOTE | 2023-09-21 09:30 | MR_ITS ---
FINAL REPORT CLINICAL HISTORY: left side radiculopathy. PAIN WHEN WALKING COMPARISON: None FINDINGS: Multiplanar MR imaging of the lumbar spine was performed without contrast. On the sagittal T2-weighted images, disc degeneration is seen throughout. The vertebral alignment is normal. There are endplate changes at multiple levels. No bony mass is identified. The conus has an unremarkable appearance. T12-L1: There is no significant canal stenosis or neuroforaminal narrowing. L1-2: Annular disc bulge, facet arthropathy, and osteophytes. Mild right neuroforaminal narrowing. L2-3: An annular bulge is present. There is no significant canal stenosis or neural foraminal narrowing. L3-4: Annular disc bulge, facet arthropathy, and osteophytes. Left foraminal disc protrusion. Mild right and moderate left neuroforaminal narrowing. L4-5: Annular disc bulge, facet arthropathy, and osteophytes. Moderate bilateral neuroforaminal narrowing. L5-S1: Annular disc bulge, facet arthropathy, and osteophytes. Severe bilateral neuroforaminal narrowing. IMPRESSION: Multilevel degenerative disc disease and spondylosis as described. L3-4 disc protrusion. Reviewed, Interpreted and Dictated by Constantine Montesinos III, MD Transcribed by Lisa Johnson Authenticated and [facility]
== END ==
PROVIDERS: PCP Family Medicine; Visit Provider Family Medicine
DX: M25.552 Pain in left hip (principal); M54.16 Radiculopathy, lumbar region
CPT/HCPCS: 36415; 72148; 76376; 82728

== ENCOUNTER → 2023-10-26 09:02 | Outpatient (POV) | payer MEDICARE, BC, SELFPAY ==
--- NOTE | 2023-10-26 09:33 | EXP.PAIN.OV ---
HPI Data of Consult Patient: new to practice Consult date: 10/26/23 Requesting Physician: Meghna West APRN Primary Care Provider: Juanjose Rodriguez MD Consult Narrative Reason for consult: Low back pain, bilateral leg pain History of present illness: Mr. Fajardo is a 63 year old male who presents today as a new patient. He is a referral from Elizabeth Nails's office. Today he rates his pain a 5 out of 10. Patient states his pain is all in his low back with radiating symptoms into his bilateral lower extremities. He does state typically the pain is at the back of his legs all the way down. He describes this as an aching sensation with numbness into his legs. Patient states it has been going on for at least 13 years or more. Patient states that he twisted his back while he was working years ago and had issues ever since. Patient denies any previous surgery or injection history. Patient has had chiropractor therapy however made no improvement. Patient is currently in physical therapy and prior to that had done at home exercising and stretching for longer than 6 weeks. Patient has tried and failed conservative therapy such as Tylenol and ibuprofen along with heat and ice and topicals. Patient is interested in any help we may be able to provide. He does state the pain interferes with his ability to perform activities of daily living such as cooking and cleaning.Patient is currently managed with present ER 600 mg daily and has been prescribed Percocet 10 mg in the past from outside providers. Patient is currently on Plavix for history of cardiac stents. Patient states he is scheduled to come off this medication this upcoming month in October for colonoscopy. His Jarrett has been reviewed and is appropriate. CC: Meghna West APRN [facility] Disclaimer: The information contained in this section may have been updated after the patient was seen, as this information can be updated by other users. Medical History Abnormal cardiovascular stress test Angina pectoris Anxiety about health Coronary arteriosclerosis Daytime somnolence Depression He does have an upcoming appointment with America Robles APRN. Dyspnea Erectile dysfunction HLD (hyperlipidemia) HTN (hypertension) Insomnia 09/21/2023: Stable, asymptomatic on Lunesta 3 milligrams p.o. nightly. Denies any significant side effects. Major depressive disorder Symptomatically improved with Pristiq RLS (restless legs syndrome) 09/21/2023: Significant improvement on Horizant 600 mg taken at 5 PM. Denies significant side effects. Screening for malignant neoplasm of colon Tremor Asymptomatic on exam Type 2 diabetes mellitus without complications Surgical History History of cardiac cath History of cholecystectomy History of gastric bypass History of tonsillectomy Hx of heart artery stent Family History Mother FHx: mental illness depression Diabetes Cancer Father FHx: mental illness anger issues Diabetes Seizures Other Heart attack Hyperlipidemia Hypertension Social History Smoking Status: Former smoker tobacco type: cigarettes and cigars second hand exposure: No alcohol intake: current counseling given: No substance use type: denies use current occupational status: employed and retired Travel in the last 8 weeks: None adopted: No caregiver/support person: No foster care: No household members: spouse housing: house lives independently: Yes marital status: number of children: 2 number of grandchildren: 11 education level: high school service: No current occupation: works at the [employer] Hx Recent Travel: No physical activity: none kenneth/catholic: Christianity
[2023-10-26 09:53] VITALS: BP 108/76; PULSE 66; RESP 18; O2SAT 95; BMI 36.6
== END ==
PROVIDERS: PCP Family Medicine; Visit Provider Nurse Practitioner Family
DX: M51.16 Intervertebral disc disorders with radiculopathy, lumbar region; M47.26 Other spondylosis with radiculopathy, lumbar region
CPT/HCPCS: 99202; G0463

== ENCOUNTER → 2023-10-30 11:37 | Outpatient (CLI) | payer MEDICARE, BC, SELFPAY ==
--- NOTE | 2023-10-30 11:38 | NM_ITS ---
APPROVED REPORT Exam: Nuclear Stress Test Indication: CAD, CHF, HTN, DM, HYPERLIPIEDEMIA, FM HX, C.P., SOB, FATIGUE, DIZZINESS Patient Location: Outpatient Stress Tech: [facility] Tech:Arabella Rodriguez, ARRT RT (R)(N)(M) Ht: 6 ft 1 in Wt: 270 lbs HR: 61 bpm BP: 137/79 mmHg BSA: 2.44 m2 TID: 1.21 BMI: 35.6 History: CAD, CHF, HTN, DM, HYPERLIPIEDEMIA, FM HX, C.P., SOB, FATIGUE, DIZZINESS Procedure: Patient received 0.4 mg of intravenous Lexiscan, resting heart rate 61 bpm, resting blood pressure 137/79 mmHg, with Lexiscan maximum heart rate achieved was 84 bpm which is % of the maximum predicted heart rate and blood pressure was 146/83 mmHg. With Lexiscan, patient denied any complaint of chest pain. Cardiac Stress and Resting SPECT Images: Cardiac Stress and Resting SPECT images were obtained using technetium 99m Myoview 29.6 mCi stress and 10.36 mCi at rest. Resting and stress imaging in supine and prone positions demonstrate medium sized, moderate, partially reversible perfusion defect in the basal to mid inferior LV wall. There is increased transient dilatation ratio (TID 1.21), suggestive of possible multivessel disease or balanced ischemia. Gated imaging demonstrates mild reduction in global LV systolic function. There is moderate hypokinesis of the basal inferior LV wall. LVEF is calculated at 45%. Conclusion: Medium sized, moderate, partially reversible perfusion defect in the basal to mid inferior LV wall. Increased transient dilatation ratio (TID 1.21), suggestive of possible multivessel disease or balanced ischemia. Gated imaging demonstrates mild reduction in global LV systolic function. There is moderate hypokinesis of the basal inferior LV wall. LVEF is calculated at 45%. Electronically signed by : Smita Ramsey MD 11/05/2023 09:44:58
--- NOTE | 2023-10-30 13:48 | CA_ITS ---
APPROVED REPORT Exam: Pharmacologic Technologist: Renetta Fong, Ht: 6 ft 0 in Wt: 271 lbs BSA: 2.42 m2 HR: 56 bpm BP: 137/79 mmHg Rhythm: NSR Medical History Medications: Lorazepam,,,,, Omeprazole,,,,, Aspirin,,,,, Gabapentin,,,,, Losartan,,,,, Atorvastatin,,,,, PERCOCET,,,,, Albuterol,,,,, MeLOXICAM,,,,, Vit B,,,,, CloPIdogrel,,,,, DulOXETINE,,,,, Stress Test Details Test: LEXISCAN Reason for pharmacologic stress test: physical limitation. HR Resting HR: 61 bpm Max Heart Rate (APMHR): 158 bpm Max HR Achieved: 84 bpm Target HR (85% APMHR): 134 bpm % of APMHR: 53 Recovery HR: 70 bpm BP Resting BP: 137.0/79.0 mmHg Max BP: 146.0/83.0 mmHg Recovery BP: 146.0/83.0 mmHg ECG Resting ECG: NSR, sinus yu, low voltage QRS Stress ECG: No significant ST change Arrhythmia: None Clinical Exercise duration: 04:00 min Highest Stage Achieved: Stress ECG Conclusion Symptoms: SOA, swimmy headed. No CP. Arrhythmias/Ectopy: None ST-T Changes: No significant ST changes. Conclusion: Unremarkable Lexiscan stress. Myoview images reported separately. Test Summary REST . . . . . . . Resting REST 02:48 . . 61 . 137/ 79 . . Stage 1 . . . . . . . Cardiolite injected Stage 1 01:00 . . 59 . . . . Stage 2 01:00 . . 82 . 135/ 76 . . Stage 3 01:00 . . 83 . 136/ 77 . . Stage 4 01:00 . . 78 . 137/ 77 . Stop exercise at 04:00 RECOVERY 01:00 . . 79 . . . . RECOVERY 02:00 . . 71 . . . . RECOVERY 03:00 . . 70 . 144/ 83 . . RECOVERY 03:24 . . 75 . 146/ 83 . . Electronically signed by : Smita Ramsey MD 11/05/2023 09:42:31
== END ==
PROVIDERS: PCP Family Medicine; Visit Provider Nurse Practitioner Family
DX: I25.10 Atherosclerotic heart disease of native coronary artery without angina pectoris (principal); R53.83 Other fatigue; Z01.810 Encounter for preprocedural cardiovascular examination
CPT/HCPCS: 78452; 93017; 93018; A9502; J2785

== ENCOUNTER 2023-11-10 08:15 | Day surgery (SDC) | payer MEDICARE, BC, SELFPAY ==
[2023-11-10] VITALS (15 sets, daily range): BP systolic 102–171; BP diastolic 63–102; PULSE 59–71; RESP 16–18; TEMP 37; O2SAT 95–98; BMI 36.7
--- NOTE | 2023-11-10 | CA_ITS ---
APPROVED REPORT EXAM: Comprehensive 2D, Doppler, and color-flow Echocardiogram [place] Coiling Machine Setter: Alcira Nazario RT(R) Ht: 6 ft 0 in Wt: 270lbs BSA: 2.42 BP: 142/78 mmHg Indications: Abn GXT, CP, ex smoker, fatigue, HTN, DM, SOB, hyperlipidemia 2D Dimensions Left Atrium 3.81 cm M: 3.0 - 4.0 M-Mode Dimensions RVDd 2.35 cm (0.9-2.6) LVDd 6.62 cm (3.5-5.7) Ao Diam 2.59 cm (2.0-3.7) LVDs 4.93 cm (3.5-5.7) IVSd 0.94 cm (0.6-1.1) PWd 0.70 cm (0.6-1.1) EF (Teich) 49.20% FS 25.50% EDV (Teich) 225.10 mL ESV (Teich) 114.40 mL LV Diastology E Decel Time 194 (160-240 msec) E/A Ratio 1.0 MED E' 7.2 (>= 7 cm/sec) E'/MED E' Ratio 8.81 (<= 14) LAT E' 8.5 (>= 10 cm/sec) E/LAT E' Ratio 7.46 (<= 14) Mitral Valve MV E Max Lauro. 63.0 (40-130 cm/s) MV A Velocity 65.0 (40-130 cm/s) E/A Ratio 0.97 MV Decel. Time 194 (160-240 ms) Left Ventricle The left ventricle is normal size. The left ventricular systolic function is normal. The left ventricular ejection fraction is within the normal range. There is increased LV wall thickness. There is normal LV segmental wall motion. Diastolic function could not be assessed due to technically difficult study. LVEF is 60%. Right Ventricle The right ventricle is not well-visualized. The right ventricle systolic function is difficult to estimate, but appears grossly normal. Atria The left atrium size is normal. The right atrium size is not well-visualized. The interatrial septum is not well-visualized. Aortic Valve The aortic valve is not well-visualized. There is no aortic valvular stenosis. No aortic regurgitation is present. Mitral Valve The mitral valve leaflets are mildly thickened. No evidence of mitral valve stenosis. Trace mitral regurgitation. Tricuspid Valve The tricuspid valve leaflets are not well-visualized. Trace tricuspid regurgitation. There is insufficient TR jet to estimate RVSP. Pulmonic Valve The pulmonic valve is not well-visualized. Great Vessels The aortic root is not well-visualized. The IVC is not well-visualized. Pericardium There is a small, anterior pericardial effusion. The largest pocket measures 0.4 cm in diastole. There are no clear echo indications of tamponade. Other Information Study Quality: Technically Difficult. Technically limited study due to poor endocardial definition. Conclusion Technically difficult and limited study due to poor acoustic windows. Normal biventricular systolic function. No significant valvular stenosis or regurgitation in the visualized valves. Small, anterior pericardial effusion. The largest pocket measures 0.4 cm in diastole. There are no clear echo indications of tamponade. Electronically signed by : Smita Ramsey MD 11/11/2023 00:16:34
--- NOTE | 2023-11-10 08:31 | IR_ITS ---
APPROVED REPORT Patient Location: Outpatient Digital Strategy Manager: JIGNA Ellis RT (R) PROCEDURES Left heart catheterization Left ventriculogram Selective coronary angiogram Drug-eluting stent deployment to the ostial left main artery Intravascular ultrasound left main artery INDICATION High risk abnormal Myoview, Angina pectoris, Coronary artery disease, Complex angiography using IVUS's guidance, Informed consent was obtained prior to the procedure. COMPLICATIONS NONE Estimated Blood Loss: LESS THAN 10 ML TECHNIQUE One percent lidocaine used to anesthetize the right anterior aspect of the wrist. The right radial artery was accessed via the Seldinger technique. A 6 Somali sheath was placed in the right radial artery. 2.5 mg of Verapamil, 800 mcg of nitroglycerin, 1mg Lidocaine and 5000 U Heparin were given through the arterial sheath. The papa catheter was also used to perform left heart catheterization, left ventriculogram and selective coronary angiogram. At the end of the procedure intravenous heparin was administered giving a therapeutic ACT and the guide catheter was placed in left main artery followed by Choice PT extra-support wire placed on the LAD. A 4 mm x 8 mm Ignacio frontier stent was placed in the ostial proximal left main artery at 20 lexii. Following this intravascular ultrasound probe was advanced which demonstrated there was excellent stent placement however the stent was slightly undersized therefore a 5 mm x 8 mm noncompliant balloon was advanced to the ostial proximal segment deployed at 20 lexii to further post dilate. After achieving excellent angiograph results the apparatus was removed the sheath was removed and hemostasis was achieved using TR banding patient was transferred to the postop putting in stable condition. RAÚL-3 flow was present before and after the procedure ANGIOGRAPHIC RESULTS The left main artery Has an ostial 70 to 80% stenosis The left anterior descending artery Has a stent in the proximal to mid segment which is widely patent free of in-stent restenosis with excellent proximal distal transitioning. The remaining LAD is widely patent. The circumflex artery Is a non-dominant system yet still large and has 30% stenosis between the first and second obtuse marginal artery with diffuse 10 to 20% luminal irregularities The right coronary artery Is a dominant and has a mid vessel 40% stenosis followed by an additional 30% stenosis The LOZADA ventriculogram reveals Preserved at 45 to 50% The left ventricular end-diastolic pressure 25 to 30 mmHg IMPRESSION Severe ostial left main disease Successful stenting the ostial proximal left main severe disease reduced to 0% with 1 drug-eluting stent Persistent coronary disease as described above Slightly reduced ejection fraction with elevated LVEDP PLAN 1. Dual antiplatelet therapy 2. Recommend sleep study 3. Treatment of diastolic dysfunction 4. Avoidance of tobacco products 5. LDL less than 55 to be achieved with high intensity statin 6. Cardiac rehabilitation Electronically signed by : Hugh Amado MD 11/10/2023 11:19:35
[2023-11-10 09:06] LABS: Basophils % 0.6 % (0.1-2.0); Eosinophils # 0.3 K/mm3 (0.0-0.4); Eosinophils % 4.6 % (0.1-12.0); Hematocrit 40.1 % (42.0-52.0); Hemoglobin 13.7 g/dL (14.1-18.0); Lymphocytes # 1.8 K/mm3 (0.7-4.5); Lymphocytes % 27.8 % (10-50); Mean Corpuscular HGB Conc 34.2 g/dL (31.8-35.4); Mean Corpuscular Hemoglobin 28.7 pg (27.0-31.2); Mean Platelet Volume 7.5 fl (7.4-10.4); Monocytes # 0.4 K/mm3 (0.1-1.0); Platelet Count 256 K/mm3 (142-424); Red Blood Count 4.78 M/mm3 (4.60-6.20); Red Cell Distribution Width 13.5 % (11.5-17.5); White Blood Count 6.6 K/mm3 (4.8-10.8)
[2023-11-10 09:13] LABS: Chloride 104 mmol/L (98-107); Sodium 138 mmol/L (136-145)
[2023-11-10 09:16] LABS: Blood Urea Nitrogen 13 mg/dl (9-20); Creatinine Clearance Estimated 133 mL/min (50-200); Estimated Glomerular Filt Rate 114 ml/min (>60); GFR (African American) 138 ML/MIN (>60)
[2023-11-10 09:17] LABS: Calcium 8.1 mg/dl (8.4-10.2); Carbon Dioxide 28 mmol/L (22.0-30.0); Glucose 133 mg/dl (74-100)
[2023-11-10 11:49] LABS: CATHL Activated Clotting Time 297 SEC (74-125)
== END 2023-11-10 15:23 ==
PROVIDERS: PCP Family Medicine; Visit Provider Internal Medicine
DX: E11.9 Type 2 diabetes mellitus without complications (principal); E78.5 Hyperlipidemia, unspecified; G47.33 Obstructive sleep apnea (adult) (pediatric); I10 Essential (primary) hypertension; R06.00 Dyspnea, unspecified; R94.39 Abnormal result of other cardiovascular function study; I25.118 Atherosclerotic heart disease of native coronary artery with other forms of angina pectoris; Z79.899 Other long term (current) drug therapy; Z79.84 Long term (current) use of oral hypoglycemic drugs; Z79.01 Long term (current) use of anticoagulants
CPT/HCPCS: 80048; 85025; 85347; 92928; 92978; 93306; 93458; 99152; C1725; C1760; C1769; C1876; C9600; J1644; Q9967

== ENCOUNTER 2023-11-19 15:00 | Outpatient (RCR) | payer MEDICARE, BC, SELFPAY ==
--- NOTE | 2023-11-16 15:52 | HMH.PTOPEV ---
PT Outpatient Evaluation Rehab PT Outpatient Evaluation Start: 10/12/23 14:20 Freq: Status: Active Protocol: Document 10/12/23 14:21 DELROYANNA (Rec: 10/12/23 15:36 PATITO [id number]) E-signed By Meghna Coelho, PT Outpatient Therapy Subjective History Subjective History Pt is a 63 y/o male who reports chronic LBP for years . Pt reports he had a flare up about one month ago without known trauma or injury. Pt reports constant right posterior hip pain with intermittent radiating pain and paresthesia to the right knee. Pt denies symptoms distal to the knee or LLE symptoms. Pt denies b/b dysfunction. Pt reports pain is aggravated mostly by prolonged sitting but can also be aggravated by standing, walking, bending and lifting. Pt reports some relief by sitting on a tennis ball on the right hip. Pt had a lumbar spine MRI at [facility] on 09/21/23 with impression of Multilevel degenerative disc disease and spondylosis as described. L3 -4 disc protrusion. Pt denies changes in balance or falls. Medical History: Angina pectoris, Coronary arteriosclerosis, Dyspnea, ED, HLD, HTN, Insomnia, RLS, Type 2 Diabetes, Tremor New diagnosis of cancer in past 12 No months? Chief Complaint Pain,Paresthesia Symptom Type Ache,Sharp,Numbness,Tingling, Shooting Symptoms Relieved By Heat,Ice Symptoms Aggravated By Sitting,Standing,Bending/ Stooping,Physical Activity, Walking,Lifting Prior Functional Limitations None Current Functional Limitations Lifting,Standing,Sitting, Squatting,Walking,Bending/ Stooping Symptom Description Intermittent Level of pain today (0-10) 3 Pain scale - at its best (0-10) 3 Pain scale - at its worst (0-10) 10 Lumbopelvic Eval Posture Lumbar Spine Posture Standing Position Flattened,Decreased Lordosis Palapation tenderness bilateral lumbar spinal tenderness Yes: R>L buttock tenderness Yes: glute med/min, piriformis , greater troch Lumbar/Sacral Palpation Findings Tenderness Accessory Movement L-spine Vertebrae Accessory Movements Central [place] that Elicit Symptoms L2 bilateral L3 bilateral L4 bilateral L5 bilateral S1 bilateral Range of Motion Lumbar Spine Active Flexion Range of 80 Motion (degrees) Lumbar Spine Active Extension Range of 15 Motion (degrees) Left Lumbar Spine Lateral Flexion Active 20 Range of Motion (degrees) Right Lumbar Spine Lateral Flexion 20 Active Range of Motion (degrees) Manual Muscle Test Right Knee Extension Strength Grade 4 Good Knee Flexion Strength Grade 4 Good Hip Flexion Strength Grade 4 Good Hip Abduction Strength Grade 4- Good- Hip Adduction Strength Grade 4 Good Ankle Dorsiflexion Strength Grade 5 Normal Left Knee Extension Strength Grade 5 Normal Knee Flexion Strength Grade 5 Normal Hip Flexion Strength Grade 5 Normal Hip Abduction Strength Grade 5 Normal Hip Adduction Strength Grade 5 Normal Hip Extension Strength Grade 4 Good Ankle Dorsiflexion Strength Grade 5 Normal DTR Rt Patellar 1+ Lt Patellar 1+ Rt Gastroc/Soleus 1+ Lt Gastroc/Soleus 1+ Altered Sensation Bilateral Comment equal and intact to light touch sensation bilaterally Special Tests Hip Ernesto (CHARLES) Test Positive Right Sciatic Nerve Tension Test Positive Right Unilateral Straight Leg Raise (Lasegue) Positive Right Test Oswestry Index Section 1 Pain Intensity The pain comes and goes and is severe Section 2 Personal Care (Washing,Dresing) increase the pain and I find it necessary to change my way of doing it Section 3 Lifting lifting heavy weights off the floor, but I can manage light to medium Section 4 Walking I have some pain when walking but it does not increase with distance Section 5 Sitting I can sit in any chair for as long as I like Section 6 Standing I cannot stand more than 1 hour without increasing pain Section 7 Sleeping Because of my pain, my normal night's sleep is less than 6 hours sleep Section 8 Social Life Pain has no significant effect on my social life apart from limiting Section 9 Traveling I get some pain when traveling , but none of my usual forms of travel m Section 10 Changing Degreee of Pain My pain is neither getting better or worse Score and Risk Level Oswestry Sc 22 Oswestry Risk Level Moderate Disability Outpatient Therapy Assessment Impairments Problems/Impairmments Palpation Tenderness,Impaired Range of Motion,Impaired Strength,Impaired Walking, Impaired Standing,Impaired Lifting,Impaired Household Care,Impaired Squatting, Impaired Bending,Subjective C/ O Pain,Impaired Self Care/Self Management Prognosis Rehab Potential Good Clinical Impression Consistent with Diagnosis Yes Short Term Goals Number of Weeks 3 Improve Oswestry Score Yes: Improve score to 19 to improve overall QOL Decrease Subjective C/O Pain Yes: Improve pain at worst to 8/10 to improve overall QOL Improve Self Care/Self Management Yes Patient to be Ind w/ HEP Yes Skilled Nursing Goals Number of Weeks 6 Decreased Palpation Tenderness Yes: / TTP of lumbar PS/SP Increase Range of Motion Yes: Improve lumbar flexion AROM to 90 and ext to 20 Increase Strength Yes: Improve RLE MMT to 4+-5/5 grossly to assist with function Increase Ability to Sit Yes Improve Oswestry Score Yes: Improve score to 12-15 to improve overall QOL Decrease Subjective C/O Pain Yes: Improve pain severity at worst to 6/10 to improve overall QOL Outpatient Therapy Plan of Care Treatment Plan May Include Therapeutic Exercise Including Home Yes Exercise Program Manual Therapy Techniques Yes Neuromuscular Re-education Yes Therapeutic Activities to Return to Yes Previous Functional/Work Level ADL/Self Care Education Yes Mechanical Traction Yes Dry Needling Yes Thermal Modalities Yes Electrical Stimulation Yes Ultrasound/Phonophoresis Yes Iontophoresis Yes Massage Yes Group Therapy for Medicare Yes Eval/Re-Eval Yes Frequency Times per week 2 Duration Number of Weeks 4-6 Addendums This patient is a candidate for social No or vocational rehab? Patient/Guardian verbally acknowledges Yes understanding of treatment program and consents to further treatment? Patient/Guardian verbally acknowledges Yes understanding of diagnosis, prognosis and goals for treatment? Eval Complexity PT Charges 81224 - Moderate Complexity Shoulder/Elbow Eval Shoulder Objective Measurements Elbow Objective Measurements PHYSICIAN CERTIFICATION: I certify the specified therapy services for Denis Fajardo are required, authorized, and reviewed every 30 days.
== END 2023-11-19 16:00 | disposition home or self-care (01) ==
LOC: PT 15:00
PROVIDERS: PCP Family Medicine; Visit Provider Nurse Practitioner
DX: M54.31 Sciatica, right side (principal)
CPT/HCPCS: 97010; 97014; 97110; 97163; 97164; 97530; G0283

== ENCOUNTER → 2023-12-07 10:11 | Outpatient (POV) | payer MEDICARE, BC, SELFPAY ==
[2023-12-07 11:42] VITALS: BP 133/86; PULSE 66; RESP 18; O2SAT 96; BMI 35.1
--- NOTE | 2023-12-07 12:06 | EXP.PAIN.SOA ---
[facility] Pain Management SOAP Note Subjective:: Patient is a pleasant 63-year-old male who presents today for follow-up. We are currently treating the patient for degenerative disc disease of lumbar spine with lumbar radiculopathy symptoms, lumbar facet arthropathy, lumbar spondylosis. Today he rates his pain a 3 out of 10. Patient denies any new trauma or injury. At his last visit he was scheduled for an LESI L5-S1 however he was on blood thinners and did actually have a stent placed. Patient states he is unable to come off his blood thinners at this time. He is currently prescribed horizant ER 600 mg daily. Patient denies any side effects from these medications. His Jarrett has been reviewed and is appropriate. Review of Systems: General: No recent weight changes, no fever, no sleep disturbances Respiratory: No cough, no shortness of air, no recurring pulmonary infections Cardiovascular/peripheral vascular: No chest pain, no palpitations, no edema, no shortness of breath Gastrointestinal: No new onset incontinence, normal bowel movements reported Genitourinary: No new onset incontinence Musculoskeletal: Low back pain, bilateral leg pain Psychiatric: [Normal mood/affect] Neurological: [Denies weakness in extremities], [denies balance issues] Objective:: Physical Exam: General: Alert and oriented x3, no acute distress, pleasant and cooperative Lungs: Respirations even and unlabored, symmetrical chest expansion Eyes: PERRL Musculoskeletal: Flexion and extension of lumbar [spine] somewhat guarded secondary to pain, [antalgic gait noted] Neurological: Speech clear, no gross sensory deficit Assessment:: Degenerative disc disease of lumbar spine with lumbar radiculopathy symptoms, low back back pain, lumbar facet arthropathy, lumbar spondylosis Plan:: Patient continues to have low back and leg pain with limited range of motion. I have discussed with the patient due to not being able to come off his blood thinner that I will send in a 7-day dose of prednisone 20 mg twice daily and also order the patient a compounded cream. Patient will return to clinic in 2 months for reevaluation of symptoms and plan of care. Patient has been instructed to contact the clinic with any concerns before the next appointment. Dr. Cherry has reviewed this note and agrees with this plan of care. This note was dictated using voice recognition software and make contain errors or omissions. [facility] Disclaimer: The information contained in this section may have been updated after the patient was seen, as this information can be updated by other users. Medical History Abnormal cardiovascular stress test Angina pectoris Anxiety about health Coronary arteriosclerosis Daytime somnolence Depression He does have an upcoming appointment with America Robles APRN. Dyspnea Erectile dysfunction HLD (hyperlipidemia) HTN (hypertension) Insomnia 09/21/2023: Stable, asymptomatic on Lunesta 3 milligrams p.o. nightly. Denies any significant side effects. Major depressive disorder Symptomatically improved with Pristiq RLS (restless legs syndrome) 09/21/2023: Significant improvement on Horizant 600 mg taken at 5 PM. Denies significant side effects. Screening for malignant neoplasm of colon Tremor Asymptomatic on exam Type 2 diabetes mellitus without complications Surgical History History of cardiac cath History of cholecystectomy History of gastric bypass History of tonsillectomy Hx of heart artery stent Family History Mother FHx: mental illness depression Diabetes Cancer Father FHx: mental illness anger issues Diabetes Seizures Other Heart attack Hyperlipidemia Hypertension Social History Smoking Status: Former smoker tobacco type: cigarettes and cigars second hand exposure: No alcohol intake: current counseling given: No substance use type: denies use current occupational status: employed Travel in the last 8 weeks: None adopted: No caregiver/support person: No foster care: No household members: spouse housing: house lives independently: Yes marital status: number of children: 2 number of grandchildren: 11 education level: high school service: No current occupation: works at the [employer] Hx Recent Travel: No physical activity: none kenneth/christian: Caodaism special kenneth needs: No working smoke detector in home: Yes fire extinguisher in home: No carbon monox detector in home: No firearms in home: Yes firearms unloaded and locked: Yes
== END | disposition home or self-care (01) ==
PROVIDERS: PCP Family Medicine; Visit Provider Nurse Practitioner Family
DX: M51.16 Intervertebral disc disorders with radiculopathy, lumbar region (principal); M47.26 Other spondylosis with radiculopathy, lumbar region
CPT/HCPCS: 99212; G0463

== ENCOUNTER 2024-02-11 13:38 | Outpatient (CLI) | payer MEDICARE, BC, SELFPAY ==
[2024-02-11 15:14] LABS: Alanine Aminotransferase 45 U/L (12-78); Albumin Level 4.2 g/dl (3.5-5.0); Albumin/Globulin Ratio 1.6 (1.1-1.8); Alkaline Phosphatase 76 U/L (38-126); Anion Gap 10.3 mEq/L (5-15); Aspartate Amino Transferase 35 U/L (17-59); Bilirubin,Total 0.5 mg/dl (0.2-1.3); Blood Urea Nitrogen 11 mg/dl (9-20); Calcium 9.1 mg/dl (8.4-10.2); Carbon Dioxide 28 mmol/L (22.0-30.0); Chloride 105 mmol/L (98-107); Estimated Glomerular Filt Rate 114 ml/min (>60); GFR (African American) 138 ML/MIN (>60); Globulin 2.6 g/dL (1.3-3.2); Glucose 112 mg/dl (74-100); Potassium 4.3 mmoL/L (3.5-5.1); Sodium 139 mmol/L (136-145); Total Protein,Serum 6.8 g/dl (6.3-8.2)
== END 2024-02-11 23:59 ==
PROVIDERS: PCP Family Medicine; Visit Provider Specialist
DX: E11.69 Type 2 diabetes mellitus with other specified complication; E66.9 Obesity, unspecified; Z79.84 Long term (current) use of oral hypoglycemic drugs; Z68.36 Body mass index [BMI] 36.0-36.9, adult
CPT/HCPCS: 36415; 80053; 83036

== ENCOUNTER 2024-02-24 08:22 | Day surgery (SDC) | payer MEDICARE, SELFPAY ==
[2024-02-24] VITALS (10 sets, daily range): BP systolic 115–163; BP diastolic 70–98; PULSE 62–75; RESP 17–19; TEMP 36.6; O2SAT 93–97; BMI 36.4
--- NOTE | 2024-02-24 | CA_ITS ---
APPROVED REPORT EXAM: Limited 2D Echocardiogram General Education Instructor: Jovita Rosales CRT Ht: 6 ft 0 in Wt: 269lbs BSA: 2.42 BP: 135/51 mmHg Indications: EF CHECK , PERICARDIAL EFFUSION CHECK M-Mode Dimensions RVDd 2.76 cm (0.9-2.6) LA Diam 4.89 cm (1.9-4.0) LVDd 5.16 cm (3.5-5.7) LVDs 3.16 cm (3.5-5.7) IVSd 1.56 cm (0.6-1.1) PWd 0.76 cm (0.6-1.1) EF (Teich) 68.80% FS 38.80% EDV (Teich) 127.20 mL ESV (Teich) 39.70 mL Other Information Study Quality: Fair Conclusion This is a limited TTE to evaluate for pericardial effusion. Limited windows were obtained. The left ventricle is normal in size. There is increased LV wall thickness. There is normal LV systolic function. LVEF is 60%. Trivial pericardial effusion is noted anteriorly. No echo indications of tamponade. Compared to prior study from 10/2023, the pericardial effusion appears unchanged or slightly improved. Electronically signed by : Smita Ramsey MD 02/28/2024 17:41:45
--- NOTE | 2024-02-24 07:09 | IR_ITS ---
APPROVED REPORT Patient Location: Outpatient PROCEDURES Left heart catheterization Left ventriculogram Selective coronary angiogram INDICATION Known coronary artery disease, Accelerated angina pectoris Informed consent was obtained prior to the procedure. COMPLICATIONS NONE Estimated Blood Loss: LESS THAN 10 ML TECHNIQUE One percent lidocaine used to anesthetize the right anterior aspect of the wrist. The right radial artery was accessed via the Seldinger technique. A 6 Togolese sheath was placed in the right radial artery. 2.5 mg of Verapamil, 800 mcg of nitroglycerin, 1mg Lidocaine and 5000 U Heparin were given through the arterial sheath. The papa catheter was also used to perform left heart catheterization, left ventriculogram and selective coronary angiogram. At the end of the procedure the sheath was removed good hemostasis was achieved using Traclet band, patient was transferred to the postop holding area in stable condition. ANGIOGRAPHIC RESULTS The left main artery Normal The left anterior descending artery Has a stent in the proximal to mid segment which is widely patent with minimal in-stent restenosis with excellent proximal distal transitioning The circumflex artery Codominant with mild proximal and mid vessel 20% stenoses The right coronary artery Codominant with mid vessel concentric 40% stenosis The LOZADA ventriculogram reveals Normal 65% The left ventricular end-diastolic pressure Severely elevated at 40 mmHg IMPRESSION Widely patent proximal and mid LAD stent as described above Moderate nonflow limiting disease in the mid codominant right coronary artery Normal ejection fraction Severely elevated LVEDP which is almost certainly the etiology for patient's angina pectoris PLAN 1. Medical management for coronary disease focusing on aggressive risk factor modification 2. Treatment of diastolic dysfunction 3. Recommend empiric treatment for restless leg syndrome 4. Recommend sleep study Electronically signed by : Hugh Amado MD 02/24/2024 12:56:06
[2024-02-24 09:15] LABS: Chloride 108 mmol/L (98-107); Potassium 4.6 mmoL/L (3.5-5.1); Sodium 140 mmol/L (136-145)
[2024-02-24 09:16] LABS: Basophils # 0.1 K/mm3 (0-0.2); Basophils % 1.2 % (0.1-2.0); Eosinophils # 0.4 K/mm3 (0.0-0.4); Eosinophils % 6.3 % (0.1-12.0); Hemoglobin 13.8 g/dL (14.1-18.0); Lymphocytes # 1.9 K/mm3 (0.7-4.5); Lymphocytes % 28.6 % (10-50); Mean Corpuscular HGB Conc 32.2 g/dL (31.8-35.4); Mean Corpuscular Hemoglobin 29.3 pg (27.0-31.2); Mean Corpuscular Volume 91.1 fl (80-94); Mean Platelet Volume 7.5 fl (7.4-10.4); Monocytes # 0.4 K/mm3 (0.1-1.0); Monocytes % 6.2 % (1.7-9.3); Neutrophils # 3.8 K/mm3 (1.8-7.8); Neutrophils % 57.7 % (37.0-80.0); Platelet Count 267 K/mm3 (142-424); Red Blood Count 4.72 M/mm3 (4.60-6.20); Red Cell Distribution Width 13.6 % (11.5-17.5); White Blood Count 6.5 K/mm3 (4.8-10.8)
[2024-02-24 09:18] LABS: Anion Gap 6.6 mEq/L (5-15); Blood Urea Nitrogen 12 mg/dl (9-20); Carbon Dioxide 30 mmol/L (22.0-30.0); Creatinine Clearance Estimated 132 mL/min (50-200); Estimated Glomerular Filt Rate 114 ml/min (>60); GFR (African American) 138 ML/MIN (>60)
[2024-02-24 09:19] LABS: Calcium 8.7 mg/dl (8.4-10.2); Glucose 132 mg/dl (74-100)
[2024-02-24] MEDS: diphenhydrAMINE 50MG/ML VIAL 50 MG IV (12:24)
[2024-02-24] MEDS: HEPARIN 1,000 UNITS/ML 10ML VIAL (CATH LAB) 10000 UNIT IV (12:24)
[2024-02-24] MEDS: VERAPAMIL 2.5MG/ML 2ML VIAL 2.5 MG IV (12:24)
[2024-02-24] MEDS: NITROGLYCERIN 800MCG/8ML SYR (CATH LAB) 800 MCG IA (12:24)
[2024-02-24] MEDS: LIDOCAINE 1% 10ML MDV 20 ML IJ (12:24)
[2024-02-24] MEDS: MIDAZOLAM HCL 1MG/1ML 5ML VIAL 1 MG IV (12:25)
[2024-02-24] MEDS: 0.9 % SODIUM CHLORIDE 500 ML 25 ML IV (12:25)
[2024-02-24] MEDS: FENTANYL 100MCG/2ML VIAL 50 MCG IV (12:25)
[2024-02-24] MEDS: HEPARIN 1,000 UNITS/500ML NS (CATH LAB) 3000 UNIT IV (12:25)
[2024-02-24] MEDS: PROMETHAZINE HCL 25MG/ML 1ML VIAL 25 MG IV (12:32)
[2024-02-24] MEDS: PROPOFOL 10MG/ML 20ML VIAL 130 MG IV (12:59)
[2024-02-24] MEDS: IOPAMIDOL-370 (76%);100ML BOTTLE 60 ML IV (13:23)
== END 2024-02-24 15:33 | disposition home or self-care (01) ==
PROVIDERS: PCP Family Medicine; Visit Provider Internal Medicine
DX: G47.33 Obstructive sleep apnea (adult) (pediatric); I10 Essential (primary) hypertension; E78.2 Mixed hyperlipidemia; N52.9 Male erectile dysfunction, unspecified; R06.02 Shortness of breath; I25.110 Atherosclerotic heart disease of native coronary artery with unstable angina pectoris; Z79.899 Other long term (current) drug therapy; Z79.84 Long term (current) use of oral hypoglycemic drugs; E11.9 Type 2 diabetes mellitus without complications; Z87.891 Personal history of nicotine dependence
CPT/HCPCS: 36415; 80048; 85025; 93308; 93458; 99152; C1725; C1760; C1769; J1644; Q9967

== ENCOUNTER 2024-04-18 10:59 | Outpatient (CLI) | payer MEDICARE, BC, SELFPAY ==
[2024-04-18 12:05] LABS: Blood Urea Nitrogen 10 mg/dl (9-20); Estimated Glomerular Filt Rate 98 ml/min (>60); GFR (African American) 119 ML/MIN (>60)
[2024-04-19 12:20] LABS: Prolactin 12.3 ng/mL (3.6-25.2); Sex Hormone Binding Globulin 48.5 nmol/L (19.3-76.4)
[2024-04-19 13:30] LABS: DHEA-Sulfate 88.5 ug/dL (48.9-344.2); Estradiol 20.4 pg/mL (7.6-42.6); FSH 3.7 mIU/mL (1.5-12.4); LH 5.6 mIU/mL (1.7-8.6); Testosterone,Total 215 ng/dL (264-916)
[2024-04-25 03:18] LABS: Testosterone,Free 5.2 pg/mL (6.6-18.1)
== END 2024-04-18 23:59 | disposition home or self-care (01) ==
LOC: LAB 11:00
PROVIDERS: PCP Family Medicine; Visit Provider Urology
DX: R36.1 Hematospermia (principal); E29.1 Testicular hypofunction
CPT/HCPCS: 36415; 82565; 82626; 82670; 83001; 83002; 84146; 84270; 84402; 84403; 84520

== ENCOUNTER 2024-05-02 12:15 | Outpatient (CLI) | payer MEDICARE, BC, SELFPAY ==
[2024-05-02 14:11] LABS: Prostate Specific Ag Screen 1.1 ng/ml (0.0-4.0)
== END 2024-05-02 23:59 | disposition home or self-care (01) ==
LOC: LAB 12:16
PROVIDERS: PCP Family Medicine; Visit Provider Urology
DX: Z12.5 Encounter for screening for malignant neoplasm of prostate (principal)
CPT/HCPCS: 36415; G0103

== ENCOUNTER 2024-05-16 16:08 | Outpatient (CLI) | payer MEDICARE, BC, SELFPAY ==
--- NOTE | 2024-05-16 16:09 | CT_ITS ---
PROCEDURE INFORMATION: Exam: CT Head Without Contrast Exam date and time: 05/16/2024 4:10 PM Age: 64 years old Clinical indication: Injury or trauma; Fall; Additional info: Head trauma r/t fall, blurred vision, dizziness TECHNIQUE: Imaging protocol: Computed tomography of the head without contrast. Radiation optimization: All CT scans at this facility use at least one of these dose optimization techniques: automated exposure control; mA and/or kV adjustment per patient size (includes targeted exams where dose is matched to clinical indication); or iterative reconstruction. COMPARISON: BRAINWW MR head/brain wo/w con 08/09/2018 11:19 AM FINDINGS: Brain: Age-related volume loss. No acute intracranial hemorrhage, midline shift or intracranial mass effect. Cerebral ventricles: No hydrocephalus. Paranasal sinuses: Visualized sinuses are unremarkable. No fluid levels. Mastoid air cells: Visualized mastoid air cells are well aerated. Bones: Unremarkable. No acute fracture. Soft tissues: Unremarkable. IMPRESSION: No acute intracranial abnormality.
== END 2024-05-16 23:59 | disposition home or self-care (01) ==
LOC: RAD 16:09
PROVIDERS: PCP Nurse Practitioner; Visit Provider Nurse Practitioner
DX: S09.90XA Unspecified injury of head, initial encounter (principal); R42 Dizziness and giddiness; H53.8 Other visual disturbances
CPT/HCPCS: 70450

== ENCOUNTER 2024-07-13 12:47 | Outpatient (CLI) | payer MEDICARE, BC, SELFPAY ==
[2024-07-13 12:56] LABS: MANUAL DIFFERENTIAL MANUAL DIFFERENTIAL (MANUAL DIFF)
[2024-07-13 13:13] LABS: Basophils # 0.1 K/mm3 (0-0.2); Eosinophils # 0.1 K/mm3 (0.0-0.4); Eosinophils % 1.1 % (0.1-12.0); Hematocrit 50.2 % (42.0-52.0); Hemoglobin 15.6 g/dL (14.1-18.0); Lymphocytes # 2.2 K/mm3 (0.7-4.5); Lymphocytes % 22.6 % (10-50); Mean Corpuscular HGB Conc 31.1 g/dL (31.8-35.4); Mean Corpuscular Hemoglobin 27.7 pg (27.0-31.2); Mean Corpuscular Volume 89.1 fl (80-94); Mean Platelet Volume 7.7 fl (7.4-10.4); Monocytes # 0.6 K/mm3 (0.1-1.0); Monocytes % 6.2 % (1.7-9.3); Neutrophils # 6.7 K/mm3 (1.8-7.8); Neutrophils % 69.2 % (37.0-80.0); Platelet Count 412 K/mm3 (142-424); Red Blood Count 5.63 M/mm3 (4.60-6.20); Red Cell Distribution Width 14.3 % (11.5-17.5); White Blood Count 9.6 K/mm3 (4.8-10.8)
[2024-07-13 13:50] LABS: Eosinophils % 2 % (0-3); Lymphocytes % 27 % (10-50); Monocytes % 4 % (2-9); Neutrophils % 67 % (42-76); Platelet Estimate Normal; RBC Morphology Normal; Total Cells Counted 100
[2024-07-15 09:10] LABS: Sex Hormone Binding Globulin 31.8 nmol/L (19.3-76.4); Testosterone,Total 561 ng/dL (264-916)
== END 2024-07-13 23:59 | disposition home or self-care (01) ==
LOC: LAB 12:49
PROVIDERS: PCP Family Medicine; Visit Provider Urology
DX: N40.0 Benign prostatic hyperplasia without lower urinary tract symptoms (principal); I10 Essential (primary) hypertension
CPT/HCPCS: 36415; 84270; 84403; 85007; 85014; 85018; 85048; 85049

== ENCOUNTER 2024-09-19 09:39 | Outpatient (CLI) | payer MEDICARE, BC, SELFPAY ==
[2024-09-19 10:05] LABS: Basophils # 0.1 K/mm3 (0-0.2); Basophils % 0.8 % (0.1-2.0); Eosinophils # 0.2 K/mm3 (0.0-0.4); Eosinophils % 3.1 % (0.1-12.0); Hematocrit 52.2 % (42.0-52.0); Hemoglobin 16.3 g/dL (14.1-18.0); Lymphocytes # 1.6 K/mm3 (0.7-4.5); Lymphocytes % 20.7 % (10-50); Mean Corpuscular HGB Conc 31.2 g/dL (31.8-35.4); Mean Corpuscular Hemoglobin 26.5 pg (27.0-31.2); Mean Platelet Volume 6.6 fl (7.4-10.4); Monocytes # 0.5 K/mm3 (0.1-1.0); Monocytes % 6.3 % (1.7-9.3); Neutrophils # 5.4 K/mm3 (1.8-7.8); Neutrophils % 69.1 % (37.0-80.0); Platelet Count 264 K/mm3 (142-424); Red Blood Count 6.14 M/mm3 (4.60-6.20); Red Cell Distribution Width 14.2 % (11.5-17.5); White Blood Count 7.9 K/mm3 (4.8-10.8)
[2024-09-20 12:13] LABS: Testosterone,Total 278 ng/dL (264-916)
[2024-09-20 14:13] LABS: Sex Hormone Binding Globulin 32.2 nmol/L (19.3-76.4)
== END 2024-09-19 23:59 | disposition home or self-care (01) ==
LOC: LAB 09:41
PROVIDERS: PCP Family Medicine; Visit Provider Urology
DX: N52.9 Male erectile dysfunction, unspecified (principal); N40.0 Benign prostatic hyperplasia without lower urinary tract symptoms
CPT/HCPCS: 36415; 84270; 84403; 85025

== ENCOUNTER 2024-10-15 15:26 | Emergency (ER) | payer MEDICARE, BC, SELFPAY ==
[2024-10-15 15:27] VITALS: BP 177/102; PULSE 88; RESP 18; TEMP 37.1; O2SAT 95; BMI 36.6
--- NOTE | 2024-10-15 15:31 | XR_ITS ---
PROCEDURE INFORMATION: Exam: XR Right Finger(s) Exam date and time: 10/15/2024 3:32 PM Age: 64 years old Clinical indication: Injury or trauma; Other: Right thumb vs table saw; Laceration; Finger TECHNIQUE: Imaging protocol: Radiologic exam of the right fingers. Views: Minimum 2 views. Frontal Oblique Lateral COMPARISON: No relevant prior studies available. FINDINGS: Bones/joints: Radiopaque density ring overlies the proximal fourth digit. This obscures visualization of digits on multiple views. Diffusely decreased bone density. Mild to moderate generalized bony degenerative changes. Bony structures appear otherwise unremarkable. No visualized evidence for acute bony fracture or dislocation. Soft tissues: Mild soft tissue edema within the right wrist region extending into the 1st digit. Possible laceration involving the distal 1st digit. No radiopaque foreign body identified. Notes: If there is further concern, recommend follow-up radiographs for complete assessment. IMPRESSION: 1. Soft tissue edema. Questionable laceration within distal tip of the 1st digit. 2. No acute bony abnormality identified. 3. Chronic bony changes.
[2024-10-15] MEDS: TET/DIPHTH/PERT-ADULT 0.5ML SYRINGE 0.5 ML IM (15:46)
[2024-10-15] MEDS: LIDOCAINE 1% W/EPI 1:100,000 20ML VIAL 20 ML SQ (15:47)
--- NOTE | 2024-10-15 16:02 | ED_ITS ---
Discharge Plan Disposition Chief Complaint: Extremity Injury, Upper Prescriptions Prescriptions: No Action (DME) blood-glucose meter [Blood Glucose Monitoring] Kit See Rx Instructions .ROUTE .MEDSUPPLY Qty: 1 0RF Rx Instructions: Twice Daily (DME) Blood Glucose Test Strip See Rx Instructions .ROUTE .MEDSUPPLY Qty: 50 3RF Rx Instructions: Twice daily (DME) lancets 30 gauge misc See Rx Instructions .ROUTE .MEDSUPPLY Qty: 200 2RF Rx Instructions: Twice daily tadalafil [Cialis] 20 mg tablet 20 mg PO DAILY 30 Days Qty: 14 3RF Rx Instructions: Take one an hour before sexual intercourse tadalafil [Cialis] 5 mg tablet 5 mg PO DAILY Qty: 30 3RF albuterol sulfate 90 mcg/actuation HFA aerosol inhaler 1 inh INHALATION DAILY PRN (Reason: Asthma) desvenlafaxine succinate [Pristiq] 100 mg tablet extended release 24 hr 100 mg PO DAILY Qty: 90 1RF Lybalvi 5-10 mg tablet 1 tab PO QHS Qty: 90 0RF furosemide 40 mg tablet 20 mg .ROUTE .COMPLEX Rx Instructions: 20 mg; eszopiclone [Lunesta] 3 mg tablet 3 mg PO HS Qty: 90 4RF Horizant 600 mg tablet extended release 600 mg PO BID Qty: 60 5RF ropinirole 2 mg tablet 2 mg PO DAILY Qty: 30 11RF Rx Instructions: 2 mg 2 hours before bedtime. Do not drive after taking it. furosemide 20 mg tablet 20 mg PO DAILY duloxetine 60 mg capsule,delayed release(DR/EC) See Rx Instructions .ROUTE .COMPLEX Qty: 180 5RF Dose Instruction: TAKE 1 CAPSULE BY MOUTH DAILY FOR ANXIETY Rx Instructions: TAKE 1 CAPSULE BY MOUTH DAILY FOR ANXIETY clopidogrel 75 mg tablet See Rx Instructions .ROUTE .COMPLEX Qty: 90 3RF Dose Instruction: TAKE 1 TABLET BY MOUTH DAILY Rx Instructions: TAKE 1 TABLET BY MOUTH DAILY losartan 50 mg tablet See Rx Instructions .ROUTE .COMPLEX Qty: 90 3RF Dose Instruction: TAKE 1 TABLET BY MOUTH DAILY Rx Instructions: TAKE 1 TABLET BY MOUTH DAILY levetiracetam 500 mg tablet See Rx Instructions .ROUTE .COMPLEX Qty: 180 3RF Dose Instruction: TAKE 1 TABLET BY MOUTH TWICE DAILY FOR SEIZURE Rx Instructions: TAKE 1 TABLET BY MOUTH TWICE DAILY FOR SEIZURE atorvastatin 40 mg tablet See Rx Instructions .ROUTE .COMPLEX Qty: 90 3RF Dose Instruction: TAKE 1 TABLET BY MOUTH AT BEDTIME FOR CHOLESTEROL Rx Instructions: TAKE 1 TABLET BY MOUTH AT BEDTIME FOR CHOLESTEROL metformin 500 mg tablet 500 mg PO DAILY Qty: 90 1RF Xyosted 100 mg/0.5 mL auto-injector 100 mg SQ WEEKLY 30 Days Qty: 2.5 3RF Rx Instructions: Give every Thursday omeprazole 40 mg capsule,delayed release(DR/EC) See Rx Instructions .ROUTE .COMPLEX Rx Instructions: TAKE ONE TABLET BY MOUTH ONCE DAILY aspirin 81 mg Tablet,Chewable 81 mg PO DAILY 30 Days Qty: 30 3RF Referrals Follow up/Referrals: Jayant Hale MD [Primary Care Provider] - See instructions Activity Restrictions/Add. Instructions Additional Instructions/Restrictions: Stitches can be removed in 7 to 10 days. Superglue can be applied if you continue to bleed. Call your family doctor to establish care for this visit to the emergency department and schedule follow-up within 48 hours to ensure improvement. If you have any worsening of your condition or any other concerning signs or symptoms, return to the emergency department or your primary care doctor for further evaluation. Clinical Impressions Clinical Impression: Laceration of right thumb Print Language Print Language: Ethiopian Discharge ED Provider: Caden Bee General Adult HPI General Chief complaint: Extremity Injury, Upper Stated complaint: R thumb cut ao Time Seen by Provider: 10/15/24 15:31 Mode of Arrival: Ambulatory Source of Information: Patient Limitations: No Limitations Description of Symptoms (Recalled from ER Triage Doc. by RN): r thumb injury fro m a table saw History of Present Illness HPI narrative: Please note that above description of symptoms, in this electronic medical rec ord under categorization of recalled from ER triage doctor by RN are reflective of an initial nursing assessment, however, is not reflective of my full history and physical exam that was personally taken and clarified. Consequentially, this preceding description of symptoms, which may include the patient's categorized chief complaint in the EMR, do not reflect my personal clinical impression, and the ultimate description of history of present illness and patient stated complaints should be deferred to this section of the note. Unless stated otherwise or congruent with this section of the note, additional signs, symptoms, or incongruence should be interpreted as inaccurate with my clinical impression. Related Data Home Medications ?Medication ?Instructions ?Recorded ?Confirmed omeprazole 40 mg capsule,delayed See Rx Instructions .Route 05/11/23 10/13/24 release .COMPLEX Acid reflux albuterol sulfate 90 mcg/actuation 1 inh inhalation DAILY PRN Asthma 02/10/24 10/13/24 aerosol inhaler furosemide 40 mg tablet 20 mg .Route .COMPLEX 04/18/24 10/13/24 furosemide 20 mg tablet 20 mg PO DAILY 06/20/24 10/13/24 Previous Rx's ?Medication ?Instructions ?Recorded aspirin 81 mg chewable tablet 81 mg PO DAILY 30 days #30 tabs 05/11/23 duloxetine 60 mg capsule,delayed See Rx Instructions .Route 12/31/23 release .COMPLEX #180 caps blood sugar diagnostic (Blood #50 ea 03/04/24 Glucose Test strips) blood-glucose meter (Blood Glucose #1 ea 03/04/24 Monitoring kit) lancets 30 gauge #200 ea 03/04/24 clopidogrel 75 mg tablet See Rx Instructions .Route 04/08/24 .COMPLEX #90 tabs losartan 50 mg tablet See Rx Instructions .Route 04/22/24 .COMPLEX #90 tabs desvenlafaxine succinate 100 mg 100 mg PO DAILY Depression #90 tabs 05/12/24 tablet,extended release 24 hr (Pristiq) olanzapine 5 mg-samidorphan 10 mg 1 tab PO QHS Insomnia #90 tabs 05/12/24 tablet (Lybalvi) levetiracetam 500 mg tablet See Rx Instructions .Route 08/03/24 .COMPLEX #180 tabs atorvastatin 40 mg tablet See Rx Instructions .Route 08/29/24 .COMPLEX #90 tabs metformin 500 mg tablet 500 mg PO DAILY Diabetes #90 tabs 09/12/24 tadalafil 20 mg tablet (Cialis) 20 mg PO DAILY 30 days #14 tabs 09/19/24 tadalafil 5 mg tablet (Cialis) 5 mg PO DAILY #30 tabs 09/19/24 testosterone enanthate 100 mg/0.5 100 mg (0.5 mL) SQ WEEKLY 30 days 09/22/24 mL subcutaneous auto-injector #2.5 mL (Xyosted) eszopiclone 3 mg tablet (Lunesta) 3 mg PO HS insomnia #90 tabs 10/13/24 gabapentin enacarbil 600 mg 600 mg PO BID #60 tabs 10/13/24 tablet,extended release (Horizant ER) ropinirole 2 mg tablet 2 mg PO DAILY #30 tabs 10/13/24 Allergies Allergy/AdvReac Type Severity Reaction Status Date / Time acetaminophen Allergy Mild Sneezing Verified 10/13/24 13:33 rosuvastatin (From Crestor) AdvReac Severe Verified 10/13/24 13:33 [facility] Disclaimer: The information contained in this section may have been updated after the patient was seen, as this information can be updated by other users. Medical History Atypical angina YOSELIN (obstructive sleep apnea) Mild YOSELIN. He quit using CPAP and currently on lifestyle modification. Unable to tolerate oral appliance. Status post gastric sleeve surgery. Screening for malignant neoplasm of colon Type 2 diabetes mellitus without complications Abnormal cardiovascular stress test Angina pectoris RLS (restless legs syndrome) Recurrent symptoms in the setting of poorly controlled diabetes mellitus. Suspected early secondary to underlying diabetic polyneuropathy. Currently better after Horizant ER was increased from 600 mg p.o. nightly to 600 mg p.o. twice daily. Denies any side effects. He does not take ropinirole any longer therefore prescription was discontinued. Major depressive disorder Symptomatically improved with Pristiq and active follow-up with [facility] at [facility]. Insomnia Anxiety about health Depression He does have an upcoming appointment with America Robles APRN. Tremor Asymptomatic on exam Daytime somnolence Dyspnea Erectile dysfunction HLD (hyperlipidemia) HTN (hypertension) Coronary arteriosclerosis : FER[place]NDA Surgical History Hx of heart artery stent History of cardiac cath History of cholecystectomy History of tonsillectomy History of gastric bypass Family History Mother FHx: mental illness depression Diabetes Cancer Father FHx: mental illness anger issues Diabetes Seizures Other Heart attack Hyperlipidemia Hypertension Social History Smoking Status: Never smoker second hand exposure: No alcohol intake: current alcohol intake frequency: holidays/special occasions only counseling given: No substance use type: denies use current occupational status: employed Travel in the last 8 weeks: None adopted: No caregiver/support person: No foster care: No household members: spouse housing: house lives independently: Yes marital status: number of children: 2 number of grandchildren: 11 education level: high school service: No current occupation: works at the [employer] Hx Recent Travel: No physical activity: none kenneth/pentecostalism: Shinto special kenneth needs: No working smoke detector in home: Yes fire extinguisher in home: No carbon monox detector in home: No firearms in home: Yes firearms unloaded and locked: Yes Other Medical History Have you received the Flu Vaccine for this season: Yes Have you received the Pneumonia Vaccine: No ROS Obtained: Yes All systems reviewed & no additional complaints except as documented Physical Exam General General appearance: alert Head Head exam: atraumatic and normocephalic Eye Eye exam: Present normal appearance, PERRL and EOMI Neck Neck exam: Present normal inspection, full ROM and trachea midline Respiratory Respiratory exam: Absent respiratory distress, wheezes, stridor, accessory muscle use or prolonged expiratory phase Cardiovascular Cardiovascular exam: Present other (Pulses equal symmetric in upper and lower extremities) Abdominal Exam Abdominal exam: Present soft; Absent distention, tenderness or pulsatile mass Extremities Exam Extremities exam: Present other (2 lacerations to the tip right thumb); Absent edema Neurological Exam Neurological exam: Present alert, oriented X3 and CN II-XII intact; Absent motor sensory deficit Skin Skin exam: Present warm and dry; Absent diaphoresis or erythema Medical Decision Making Medical Records Medical records reviewed: Yes I reviewed the patient's medical records. Screening: Per USPSTF and CDC recommendations, given the prevalence of disease in our region, it is our hospital?s policy to screen for HIV and viral Hepatitis for all patients aged 18 and over and those with ongoing risk factors. Jarrett Inquiry Pt receiving controlled substance: No Jarrett was queried for this patient: No Vital Signs: 10/15/24 15:27 10/15/24 16:41 Temperature 98.7 F Temperature Source Oral Pulse Rate 89 Pulse Rate [Right] 88 Respiratory Rate 18 Blood Pressure 150/96 H Blood Pressure [Left Arm] 177/102 H Blood Pressure Mean 108 Blood Pressure Mean [Left Arm] 127 02 Sat by Pulse Oximetry 95 96 Oxygen Delivery Method Room Air Room Air Orders (Tests/Meds): ED MEDICATIONS Discontinued Medications Generic Name Dose Route Start Last Admin Trade Name Freq PRN Reason Stop Dose Admin Lidocaine/Epinephrine 20 ml 10/15/24 15:31 10/15/24 15:47 Lidocaine 1% W/Epi 1:100,000 20ml Vial SQ 10/15/24 15:32 20 ml ONCE ONE Administration Tetanus/Reduced Diphtheria/Acell Pertussis 0.5 ml 10/15/24 15:31 10/15/24 15:46 Tet/Diphth/Pert-Adult 0.5ml Syringe IM 10/15/24 15:32 0.5 ml .ONCE ONE Administration ORDERS Category Date Time Status Finger XR right minimum 2 views [XR finger RT min 2V] Exams 10/15/24 15:31 Taken Stat HIV (1&2) Antibody Rapid Stat Lab 10/15/24 15:38 Ordered Hep C Ab with Reflex to RNA Stat Lab 10/15/24 15:38 Ordered Medical Decision Narrative: 64-year-old male with history of hypertension, hyperlipidemia, diabetes, CAD on aspirin and Plavix presenting with laceration to his right thumb. Cut it on a saw just before arrival. Does not remove his last tetanus shot. No other trauma sustained. Minimal pain, rinsed it out for a few minutes under high- pressure tap water. History obtained the patient. On arrival, very well- appearing, no acute distress. Patient has 2 superficial lacerations across the thumb. Differential includes soft tissue injury, open fracture, among others. X-rays obtained, on independent interpretation, patient has no foreign body or bony involvement. Thumb was washed out, submerged in 1% lidocaine with epinephrine. Tdap given. Closed with four 3.0 nylon stitches, glue, 1 Steri- Strip. Because patient at baseline without signs or symptoms of clinical decompensation, deemed appropriate for discharge. Results were relayed to patient who voiced understanding and were agreeable to outpatient management and follow up. I discussed my clinical impression with patient and answered all questions. At this time, the evidence for any other entities in the differe ntial is insufficient to warrant any further testing or ED observation. This was explained as well. Advisory was given that persistent or worsening symptoms require further evaluation. I confirmed the understanding of this discussion. Clerical Office Worker disclaimer Much of this encounter note is an electronic grades 1 through 6 teacher spoken language to printed text. Electronic grades 1 through 6 teacher of the spoken language may permit errors. Although I have reviewed the note, some errors may still exist. Procedures Laceration Laceration 1: Site: thumb Side (If applicable): right Size (cm): 1 Description: linear and irregular Depth: simple, single layer Local Anesthetic: lidocaine 1% and with epi Amount of anesthesia used (mL): 10 Pre-repair: wound explored, irrigated extensively and deep structures intact Skin layer closed with: nylon Size (cm): 3-0 Number of sutures: 4 Technique: simple, interrupted Critical Care Critical Care Time Critical Care Time: No
[2024-10-15 16:41] VITALS: BP 150/96; PULSE 89; O2SAT 96
[2024-10-15 17:00] VITALS: BP 150/96; PULSE 85; RESP 20; TEMP 36.8; O2SAT 95
== END 2024-10-15 17:01 | disposition home or self-care (01) ==
PROVIDERS: Emergency Provider Emergency Medicine; PCP Family Medicine
DX: S61.011A Laceration without foreign body of right thumb without damage to nail, initial encounter (principal); M79.642 Pain in left hand; Z23 Encounter for immunization; W27.0XXA Contact with workbench tool, initial encounter; Y93.89 Activity, other specified; Y92.9 Unspecified place or not applicable
CPT/HCPCS: 73140; 90471; 90715; 99283

== ENCOUNTER 2024-11-14 10:45 | Emergency (ER) | payer MEDICARE, BC, SELFPAY ==
[2024-11-14 11:10] VITALS: BP 135/90; PULSE 81; RESP 18; TEMP 36.7; O2SAT 95; BMI 37.3
[2024-11-14 11:29] LABS: UTC Influenza A Antigen Negative (Negative); UTC Influenza B Antigen Negative (Negative); UTC Strep Screen (Rapid) Negative (Negative)
--- NOTE | 2024-11-14 11:31 | ED_ITS ---
Discharge Plan Disposition Patient Disposition: Home, Self-Care Condition: Good Prescriptions Prescriptions: New benzonatate 100 mg capsule 100 mg PO TID PRN (Reason: cough) Qty: 30 0RF amoxicillin-pot clavulanate 875-125 mg Tablet 1 tab PO Q12H Qty: 20 0RF No Action (DME) blood-glucose meter [Blood Glucose Monitoring] Kit See Rx Instructions .ROUTE .MEDSUPPLY Qty: 1 0RF Rx Instructions: Twice Daily (DME) Blood Glucose Test Strip See Rx Instructions .ROUTE .MEDSUPPLY Qty: 50 3RF Rx Instructions: Twice daily (DME) lancets 30 gauge misc See Rx Instructions .ROUTE .MEDSUPPLY Qty: 200 2RF Rx Instructions: Twice daily losartan 50 mg tablet 50 mg PO DAILY atorvastatin 40 mg tablet 40 mg PO DAILY metformin 500 mg tablet 500 mg PO DAILY levetiracetam 500 mg tablet 500 mg PO DAILY meloxicam 15 mg tablet 15 mg PO DAILY clopidogrel 75 mg tablet 75 mg PO DAILY bisoprolol fumarate 5 mg tablet 5 mg PO DAILY ropinirole 2 mg tablet 2 mg PO DAILY furosemide 20 mg tablet 20 mg PO DAILY tadalafil 5 mg tablet 5 mg PO DAILY Patient Comments: TAKE 1 TABLET BY MOUTH ONCE DAILY duloxetine 60 mg capsule,delayed release(DR/EC) 60 mg PO DAILY eszopiclone 3 mg tablet 3 mg PO DAILY desvenlafaxine succinate 100 mg tablet extended release 24 hr 100 mg PO DAILY Xyosted 75 mg/0.5 mL auto-injector 75 mg SQ WEEKLY Patient Comments: INJECT 1 SYRINGE SUBCUTANEOUSLY ONCE A WEEK Referrals Follow up/Referrals: Jayant Hale MD [Primary Care Provider] - See instructions Activity Restrictions/Add. Instructions Additional Instructions/Restrictions: *Monitor Temp, Over the counter Motrin or Tylenol as directed/as needed Tylenol every 4 hours and Motrin every 6 hours (as long as your family doctor has told you that you can take it) for fever or pain. and straight to ER if unable to lower temp less than 101.0 after medication given *Warm salt water gargles may help to soothe the throat *Throat Lozenges? *Warm fluids like tea with honey may help to soothe the throat? *Sleep elevated *Humidifier/Vaporizer *Take medication as prescribed Your throat swab was sent for culture. Those results are typically sent to your primary care. Be sure to follow up in 2-3 days with your family doctor/primary care physician if no improvement so they can review those result and treat if necessary. If you don?t have a primary care doctor, I recommend you get one but in the mean time, you will have to return to a walk in clinic Follow up IMMEDIATELY for new or worsening symptoms or no Noticeable improvement over the next 48-72 hours. 911 for difficulty breathing or swallowing Clinical Impressions Clinical Impression: Sinusitis Qualifiers: Sinusitis location: unspecified location Chronicity: unspecified Qualified Code(s): J32.9 - Chronic sinusitis, unspecified Instructions Patient Instructions: Sinusitis, DI for Sinusitis Print Language Print Language: Ivorian Discharge ED Provider: Snehal Cummings [facility] HPI General Stated complaint: cough, sore throat, headache, sinus congestion Mode of Arrival: Ambulatory Source of Information: Patient Limitations: No Limitations Time Seen by Provider: 11/14/24 11:31 Description of Symptoms (Recalled from Triage Doc. by RN): PATIENT C/O SORE THROAT, COUGH, HEADACHE, CONGESTION, AND NO ENERGY SINCE YESTERDAY HEENT Symptoms (Recalled from RN notes): Yes Resp Symptoms (Recalled from RN notes): Yes Skin Symptoms (Recalled from RN notes): No MS Symptoms (Recalled from RN notes): No Functional Status (Recalled from RN notes): WNL History of Present Illness Provider Complaint: Patient states that he has been having sinus pain and pressure States that yesterday he started with scratchy throat, cough and congestion is worse so today he came in to get checked and get something to help Related Data Home Medications ?Medication ?Instructions ?Recorded ?Confirmed atorvastatin 40 mg tablet 40 mg PO DAILY 11/14/24 11/14/24 bisoprolol fumarate 5 mg tablet 5 mg PO DAILY 11/14/24 11/14/24 clopidogrel 75 mg tablet 75 mg PO DAILY 11/14/24 11/14/24 desvenlafaxine succinate 100 mg 100 mg PO DAILY 11/14/24 11/14/24 tablet,extended release 24 hr duloxetine 60 mg capsule,delayed 60 mg PO DAILY 11/14/24 11/14/24 release eszopiclone 3 mg tablet 3 mg PO DAILY 11/14/24 11/14/24 furosemide 20 mg tablet 20 mg PO DAILY 11/14/24 11/14/24 levetiracetam 500 mg tablet 500 mg PO DAILY 11/14/24 11/14/24 losartan 50 mg tablet 50 mg PO DAILY 11/14/24 11/14/24 meloxicam 15 mg tablet 15 mg PO DAILY 11/14/24 11/14/24 metformin 500 mg tablet 500 mg PO DAILY 11/14/24 11/14/24 ropinirole 2 mg tablet 2 mg PO DAILY 11/14/24 11/14/24 tadalafil 5 mg tablet 5 mg PO DAILY 11/14/24 11/14/24 testosterone enanthate 75 mg/0.5 75 mg SQ WEEKLY 11/14/24 11/14/24 mL subcutaneous auto-injector (Xyosted) Previous Rx's ?Medication ?Instructions ?Recorded blood sugar diagnostic (Blood #50 ea 03/04/24 Glucose Test strips) blood-glucose meter (Blood Glucose #1 ea 03/04/24 Monitoring kit) lancets 30 gauge #200 ea 03/04/24 amoxicillin 875 mg-potassium 1 tab PO Q12H #20 tabs 11/14/24 clavulanate 125 mg tablet benzonatate 100 mg capsule 100 mg PO TID PRN cough #30 caps 11/14/24 Allergies Allergy/AdvReac Type Severity Reaction Status Date / Time acetaminophen Allergy Mild Sneezing Verified 10/13/24 13:33 rosuvastatin (From Crestor) AdvReac Severe Verified 10/13/24 13:33 Worker's Comp Is this a Worker's Comp case?: No [facility] Disclaimer: The information contained in this section may have been updated after the patient was seen, as this information can be updated by other users. Medical History Atypical angina YOSELIN (obstructive sleep apnea) Mild YOSELIN. He quit using CPAP and currently on lifestyle modification. Unable to tolerate oral appliance. Status post gastric sleeve surgery. Screening for malignant neoplasm of colon Type 2 diabetes mellitus without complications Abnormal cardiovascular stress test Angina pectoris RLS (restless legs syndrome) Recurrent symptoms in the setting of poorly controlled diabetes mellitus. Suspected early secondary to underlying diabetic polyneuropathy. Currently better after [facility] ER was increased from 600 mg p.o. nightly to 600 mg p.o. twice daily. Denies any side effects. He does not take ropinirole any longer therefore prescription was discontinued. Major depressive disorder Symptomatically improved with Pristiq and active follow-up with [facility] at [facility]. Insomnia Anxiety about health Depression He does have an upcoming appointment with America Robles APRN. Tremor Asymptomatic on exam Daytime somnolence Dyspnea Erectile dysfunction HLD (hyperlipidemia) HTN (hypertension) Coronary arteriosclerosis : FERNANDA Surgical History Hx of heart artery stent History of cardiac cath History of cholecystectomy History of tonsillectomy History of gastric bypass Family History Mother FHx: mental illness depression Diabetes Cancer Father FHx: mental illness anger issues Diabetes Seizures Other Heart attack Hyperlipidemia Hypertension Social History Smoking Status: Never smoker second hand exposure: No alcohol intake: current alcohol intake frequency: holidays/special occasions only counseling given: No substance use type: denies use current occupational status: employed Travel in the last 8 weeks: None adopted: No caregiver/support person: No foster care: No household members: spouse housing: house lives independently: Yes marital status: number of children: 2 number of grandchildren: 11 education level: high school service: No current occupation: works at the [employer] Hx Recent Travel: No physical activity: none kenneth/buddhist: Spiritism special kenneth needs: No working smoke detector in home: Yes fire extinguisher in home: No carbon monox detector in home: No firearms in home: Yes firearms unloaded and locked: Yes Have you lived/traveled outside [place] in past 30 days?: No Contact w/someone who lives/traveled outside [place] past 30 days?: No Exposure to someone with infectious disease in past 14 days?: No Do you have a fever (greater than 100.4 F or 38 C)?: No Have you tested positive for COVID-19: No Exposed to someone with COVID-19 in past 14 days?: No Do you have a sore throat?: Yes Do you have a cough?: Yes Do you have any weakness?: Yes Do you have any diarrhea?: No Are you experiencing any unusual bleeding?: No Do you have any muscle aches/pain?: No Do you have any abdominal pain?: No Are you experiencing loss of taste or smell?: No ROS Obtained: Yes All systems reviewed & no additional complaints except as documented and Yes Systems reviewed as appropriate & no additional complaints except as documented Constitutional Constitutional: Reports system reviewed and no additional complaints, except as documented, Reports as per HPI, Reports fatigue and Reports headache(s) ENT Ears, Nose, Mouth, and Throat: Reports system reviewed and no additional complaints, except as documented, Reports as per HPI, Reports headache(s), Reports sinus pain, Reports sinus pressure and Reports sore throat Cardiovascular Cardiovascular: Reports system reviewed and no additional complaints, except as documented and Reports as per HPI Respiratory Respiratory: Reports system reviewed and no additional complaints, except as documented, Reports as per HPI and Reports cough Gastrointestinal Gastrointestingal: Reports system reviewed and no additional complaints, except as documented and as per HPI Neurologic Neurologic: Reports headache(s) Endocrine Endocrine: Reports fatigue Physical Exam General General appearance: alert and in no apparent distress ENT ENT exam: Present mucous membranes moist Expanded ENT Exam Nose exam: Present sinus tenderness Throat exam: Present other (PND noted) Respiratory Respiratory exam: Present normal lung sounds bilaterally; Absent respiratory distress or wheezes Cardiovascular Cardiovascular exam: Present regular rate, normal rhythm and normal heart sounds Abdominal Exam Abdominal exam: Present soft and normal bowel sounds; Absent distention or tenderness Neurological Exam Neurological exam: Present alert, oriented X3 and normal gait Medical Decision Making Medical Records Screening: Per USPSTF and CDC recommendations, given the prevalence of disease in our reg ion, it is our hospital?s policy to screen for HIV and viral Hepatitis for all patients aged 18 and over and those with ongoing risk factors. Jarrett Inquiry Pt receiving controlled substance: No Jarrett was queried for this patient: No Vital Signs: 11/14/24 11:10 Temperature 98.0 F Temperature Source Oral Pulse Rate [Left Brachial] 81 Respiratory Rate 18 Blood Pressure [Left Arm] 135/90 Blood Pressure Mean [Left Arm] 105 Blood Pressure Source [Left Arm] Automatic Cuff Blood Pressure Position [Left Arm] Sitting 02 Sat by Pulse Oximetry 95 Oxygen Delivery Method Room Air Lab Data Lab results reviewed: Yes I reviewed the patient's lab results. Lab Results 11/14/24 11:15: Influenza Type A Ag Negative, Influenza Type B Ag Negative, Strep Scn Rapid Clinic Negative Orders (Tests/Meds): ORDERS Category Date Time Status Strep Screen Confirmation Stat Micro 11/14/24 11:15 Received
[2024-11-14] MEDS: METHYLPREDNISOLONE SOD SUCC 125MG VIAL 125 MG IM (11:45)
[2024-11-14 12:04] VITALS: BP 135/90; PULSE 81; RESP 18; TEMP 36.7; O2SAT 95
== END 2024-11-14 12:05 | disposition home or self-care (01) ==
PROVIDERS: Emergency Provider Nurse Practitioner; PCP Family Medicine
DX: J32.9 Chronic sinusitis, unspecified (principal)
CPT/HCPCS: 87804; 87880; 96372; 99213; G0381; J2919

== ENCOUNTER 2024-12-19 10:08 | Outpatient (CLI) | payer MEDICARE, BC, SELFPAY ==
[2024-12-19 10:35] LABS: Basophils # 0.1 K/mm3 (0-0.2); Basophils % 1.1 % (0.1-2.0); Eosinophils # 0.3 K/mm3 (0.0-0.4); Eosinophils % 3.6 % (0.1-12.0); Hematocrit 52.2 % (42.0-52.0); Hemoglobin 16.8 g/dL (14.1-18.0); Lymphocytes % 24.8 % (10-50); Mean Corpuscular HGB Conc 32.2 g/dL (31.8-35.4); Mean Corpuscular Hemoglobin 26.1 pg (27.0-31.2); Mean Corpuscular Volume 81.1 fl (80-94); Mean Platelet Volume 8.8 fl (7.4-10.4); Monocytes # 0.6 K/mm3 (0.1-1.0); Neutrophils # 4.9 K/mm3 (1.8-7.8); Neutrophils % 62.5 % (37.0-80.0); Platelet Count 295 K/mm3 (142-424); Red Blood Count 6.44 M/mm3 (4.60-6.20); Red Cell Distribution Width 14.2 % (11.5-17.5); White Blood Count 7.9 K/mm3 (4.8-10.8)
[2024-12-20 08:25] LABS: Sex Hormone Binding Globulin 32.7 nmol/L (19.3-76.4); Testosterone,Total 497 ng/dL (264-916)
== END 2024-12-19 23:59 | disposition home or self-care (01) ==
LOC: LAB 10:11
PROVIDERS: PCP Family Medicine; Visit Provider Urology
DX: N40.0 Benign prostatic hyperplasia without lower urinary tract symptoms (principal); N52.9 Male erectile dysfunction, unspecified; E66.9 Obesity, unspecified
CPT/HCPCS: 36415; 84270; 84403; 85025

== ENCOUNTER 2024-12-29 11:52 | Outpatient (CLI) | payer MEDICARE, BC, SELFPAY ==
[2024-12-29 12:23] LABS: Basophils # 0.1 K/mm3 (0-0.2); Basophils % 0.9 % (0.1-2.0); Eosinophils # 0.2 K/mm3 (0.0-0.4); Eosinophils % 3.5 % (0.1-12.0); Hematocrit 52.5 % (42.0-52.0); Hemoglobin 16.7 g/dL (14.1-18.0); Lymphocytes # 1.8 K/mm3 (0.7-4.5); Mean Corpuscular HGB Conc 31.8 g/dL (31.8-35.4); Mean Corpuscular Volume 81.6 fl (80-94); Monocytes # 0.6 K/mm3 (0.1-1.0); Monocytes % 8.4 % (1.7-9.3); Neutrophils # 4.1 K/mm3 (1.8-7.8); Neutrophils % 60.5 % (37.0-80.0); Platelet Count 324 K/mm3 (142-424); Red Blood Count 6.43 M/mm3 (4.60-6.20); Red Cell Distribution Width 14.4 % (11.5-17.5); White Blood Count 6.8 K/mm3 (4.8-10.8)
[2024-12-29 12:43] LABS: Alanine Aminotransferase 39 U/L (12-78); Albumin Level 4.5 g/dl (3.5-5.0); Alkaline Phosphatase 67 U/L (38-126); Anion Gap 15.7 mEq/L (5-15); Aspartate Amino Transferase 32 U/L (17-59); Bilirubin,Direct 0.1 mg/dl (0.0-0.4); Bilirubin,Indirect 0.5 mg/dL (0.0-0.9); Bilirubin,Total 0.6 mg/dl (0.2-1.3); Bilirubin,Unconjugated 0.4 mg/dL (0.0-1.1); Blood Urea Nitrogen 9 mg/dl (9-20); Calcium 9.5 mg/dl (8.4-10.2); Carbon Dioxide 26 mmol/L (22.0-30.0); Chloride 102 mmol/L (98-107); Chol/HDL Ratio 3.7 (1-3.5); Cholesterol 141 mg/dl (140-200); Estimated Glomerular Filt Rate 114 ml/min (>60); GFR (African American) 138 ML/MIN (>60); Glucose 140 mg/dl (74-100); HDL Cholesterol 38 mg/dl (40-60); Magnesium 1.7 mg/dl (1.6-2.3); Potassium 4.7 mmoL/L (3.5-5.1); Sodium 139 mmol/L (136-145); Total Protein,Serum 7.2 g/dl (6.3-8.2); Triglycerides 113 mg/dl (30-150); VLDL Cholesterol 23 mg/dL (0-40)
[2024-12-29 12:53] LABS: Direct LDL Cholesterol 92.06 mg/dL (100-129)
[2024-12-29 12:59] LABS: Free T4 (Free Thyroxine) 0.86 ng/dl (0.78-2.19)
[2024-12-29 13:13] LABS: Thyroid Stimulating Hormone 0.72 uIU/mL (0.465-4.68)
== END 2024-12-29 23:59 | disposition home or self-care (01) ==
LOC: LAB 11:54
PROVIDERS: PCP Family Medicine; Visit Provider Physician Assistant
DX: E11.69 Type 2 diabetes mellitus with other specified complication (principal); I25.118 Atherosclerotic heart disease of native coronary artery with other forms of angina pectoris; N40.0 Benign prostatic hyperplasia without lower urinary tract symptoms; I25.10 Atherosclerotic heart disease of native coronary artery without angina pectoris; I10 Essential (primary) hypertension; E78.5 Hyperlipidemia, unspecified; Z79.84 Long term (current) use of oral hypoglycemic drugs
CPT/HCPCS: 36415; 80048; 80061; 80076; 83735; 84439; 84443; 85025

== ENCOUNTER 2025-03-07 14:40 | Emergency (ER) | payer MEDICARE, BC, SELFPAY ==
[2025-03-07] VITALS (9 sets, daily range): BP systolic 121–146; BP diastolic 74–92; PULSE 68–83; RESP 16–18; TEMP 36.7–36.8; O2SAT 95–98; BMI 36.1
--- NOTE | 2025-03-07 14:39 | ECG_ITS ---
APPROVED REPORT Exam: Resting ECG HR:71 bpm ECG Measurements Heart Rate 71 AXES NM 158 P 59 QRSd 82 QRS 66 QT 354 T 18 QTc 377 Conclusion SINUS RHYTHM NORMAL ECG Electronically signed by : ESTEPHANIE FERNANDEZ, 03/08/2025 06:30:58
--- NOTE | 2025-03-07 14:46 | XR_ITS ---
FINAL REPORT CLINICAL HISTORY: Shortness of breath and chest pain COMPARISON: 09/19/2021 FINDINGS: No acute pulmonary opacity is present. There is no evidence of effusion or pneumothorax. Mediastinum is unremarkable. Heart size is normal. IMPRESSION: No acute abnormality. Reviewed, Interpreted and Dictated by Juanjose Pacheco MD Transcribed by Lisa Johnson Authenticated and . [facility]
--- NOTE | 2025-03-07 14:47 | CT_ITS ---
FINAL REPORT TECHNIQUE: Noncontrast exam This study was performed with techniques to keep radiation doses as low as reasonably achievable, (ALARA). Individualized dose reduction techniques using automated exposure control or adjustment of mA and/or kV according to the patient''s size were employed. CLINICAL HISTORY: Dizziness, headache COMPARISON: 05/16/2024 FINDINGS: No abnormal density is seen. Ventricles are normal. There is no hemorrhage. No mass effect is seen. Bone windows show no evidence of fracture. IMPRESSION: No acute findings Reviewed, Interpreted and Dictated by Juanjose Pacheco MD Transcribed by Lisa Johnsno Authenticated and [facility]
--- NOTE | 2025-03-07 14:49 | ED_ITS ---
Discharge Plan Disposition Patient Disposition: Home, Self-Care Condition: Good Prescriptions Prescriptions: New meclizine 50 mg tablet 50 mg PO DAILY PRN (Reason: motion sickness) Qty: 30 0RF No Action (DME) blood-glucose meter [Blood Glucose Monitoring] Kit See Rx Instructions .ROUTE .MEDSUPPLY Qty: 1 0RF Rx Instructions: Twice Daily (DME) Blood Glucose Test Strip See Rx Instructions .ROUTE .MEDSUPPLY Qty: 50 3RF Rx Instructions: Twice daily (DME) lancets 30 gauge misc See Rx Instructions .ROUTE .MEDSUPPLY Qty: 200 2RF Rx Instructions: Twice daily atorvastatin 40 mg tablet 40 mg PO DAILY Qty: 90 3RF bisoprolol fumarate 5 mg tablet 5 mg PO DAILY Qty: 90 3RF losartan 50 mg tablet 50 mg PO DAILY Qty: 90 3RF nitroglycerin 0.4 mg tablet, sublingual 0.4 mg sublingual Q5-15M PRN (Reason: chest pain) Qty: 30 1RF Rx Instructions: do not exceed 3 doses per episode tadalafil 5 mg tablet 5 mg PO DAILY 90 Days Qty: 90 1RF Xyosted 75 mg/0.5 mL auto-injector 75 mg SQ WEEKLY 30 Days Qty: 2.5 3RF duloxetine 60 mg capsule,delayed release(DR/EC) 60 mg PO DAILY Qty: 30 2RF clopidogrel 75 mg tablet 75 mg PO DAILY Qty: 90 3RF furosemide 20 mg tablet 20 mg PO DAILY Qty: 90 3RF metformin 500 mg tablet 500 mg PO DAILY levetiracetam 500 mg tablet 500 mg PO DAILY meloxicam 15 mg tablet 15 mg PO DAILY ropinirole 2 mg tablet 2 mg PO DAILY eszopiclone 3 mg tablet 3 mg PO DAILY desvenlafaxine succinate 100 mg tablet extended release 24 hr 100 mg PO DAILY benzonatate 100 mg capsule 100 mg PO TID PRN (Reason: cough) Qty: 30 0RF amoxicillin-pot clavulanate 875-125 mg Tablet 1 tab PO Q12H Qty: 20 0RF Referrals Follow up/Referrals: Levar Babin MD [Physician] - See instructions Juanjose Rodriguez MD [Primary Care Provider] - See instructions Activity Restrictions/Add. Instructions Additional Instructions/Restrictions: Please follow-up with your family doctor and ear nose throat doctor, utilize meclizine as needed for dizziness, please return to the emergency department with any worsening signs or symptoms. Clinical Impressions Clinical Impression: Tremor, Vertigo Instructions Patient Instructions: DI for Vertigo Print Language Print Language: Mohawk Discharge ED Provider: Sridhar Red General Adult HPI <CHRIS Puentes - Last Filed: 03/07/25 18:10> General Chief complaint: Weakness Stated complaint: dizziness Time Seen by Provider: 03/07/25 14:46 Mode of Arrival: EMS Source of Information: Patient History of Present Illness HPI narrative: 64-year-old male presents to the emergency department EMS for a 1 week history of dizziness, that is worse with movements, relieved with rest, has a 3-day history of a headache, patient was seen today and evaluated by his PCP whose documentation was able to be reviewed by myself. Patient's PCP urged him to come to the emergency department for dizziness. Patient denies any fever or chills, does admit to fatigue malaise, for the last 2 weeks, denies any cough congestion, has had waxing waning chest pain on and off for the last 2 to 3 weeks, 6 out of 10 at maximum currently at 3 out of 10, substernal nonradiating, with accompanying shortness of breath at times, denies any real nausea, vomiting, no abdominal pain no constipation no diarrhea no urinary type symptomatology, no hematuria melena hematochezia or hematemesis, no real tinnitus, no new visual disturbance, he describes it as the room is jittery , does have past medical history consistent with essential tremor worse in the left upper extremity, CHF, CAD status post 4 stent placements, type 2 diabetes, hypertension, BPH, ED, neuropathy, lumbar spondylosis, YOSELIN, restless leg syndrome, anxiety/depression, he is on dual antiplatelet therapy with Plavix and aspirin, he is on Keppra for his essential tremor, he was given nitroglycerin and aspirin en route per EMS. He is a former tobacco user, denies alcohol or drug use, initial triage vitals are unremarkable. Onset (ago): week(s) Related Data Home Medications ?Medication ?Instructions ?Recorded ?Confirmed desvenlafaxine succinate 100 mg 100 mg PO DAILY 11/14/24 03/07/25 tablet,extended release 24 hr eszopiclone 3 mg tablet 3 mg PO DAILY 11/14/24 03/07/25 levetiracetam 500 mg tablet 500 mg PO DAILY 11/14/24 03/07/25 meloxicam 15 mg tablet 15 mg PO DAILY 11/14/24 03/07/25 metformin 500 mg tablet 500 mg PO DAILY 11/14/24 03/07/25 ropinirole 2 mg tablet 2 mg PO DAILY 11/14/24 03/07/25 Previous Rx's ?Medication ?Instructions ?Recorded blood sugar diagnostic (Blood #50 ea 03/04/24 Glucose Test strips) blood-glucose meter (Blood Glucose #1 ea 03/04/24 Monitoring kit) lancets 30 gauge #200 ea 03/04/24 amoxicillin 875 mg-potassium 1 tab PO Q12H #20 tabs 11/14/24 clavulanate 125 mg tablet benzonatate 100 mg capsule 100 mg PO TID PRN cough #30 caps 11/14/24 duloxetine 60 mg capsule,delayed 60 mg PO DAILY #30 caps 12/05/24 release clopidogrel 75 mg tablet 75 mg PO DAILY #90 tabs 12/13/24 furosemide 20 mg tablet 20 mg PO DAILY #90 tabs 12/13/24 tadalafil 5 mg tablet 5 mg PO DAILY 90 days #90 tabs 12/19/24 testosterone enanthate 75 mg/0.5 75 mg (0.5 mL) SQ WEEKLY 30 days 12/19/24 mL subcutaneous auto-injector #2.5 mL (Xyosted) atorvastatin 40 mg tablet 40 mg PO DAILY #90 tabs 12/29/24 bisoprolol fumarate 5 mg tablet 5 mg PO DAILY #90 tabs 12/29/24 losartan 50 mg tablet 50 mg PO DAILY #90 tabs 12/29/24 nitroglycerin 0.4 mg sublingual 0.4 mg sublingual Q5-15M PRN chest 12/29/24 tablet pain #30 tabs meclizine 50 mg tablet 50 mg PO DAILY PRN motion sickness 03/07/25 #30 tabs Allergies Allergy/AdvReac Type Severity Reaction Status Date / Time acetaminophen Allergy Mild Sneezing Verified 03/07/25 13:17 rosuvastatin (From Crestor) AdvReac Severe Verified 03/07/25 13:17 [facility] <CHRIS Puentes - Last Filed: 03/07/25 18:10> [facility] Disclaimer: The information contained in this section may have been updated after the patient was seen, as this information can be updated by other users. Medical History Atypical angina YOSELIN (obstructive sleep apnea) Mild YOSELIN. He quit using CPAP and currently on lifestyle modification. Unable to tolerate oral appliance. Status post gastric sleeve surgery. Screening for malignant neoplasm of colon Type 2 diabetes mellitus without complications Abnormal cardiovascular stress test Angina pectoris RLS (restless legs syndrome) Symptomatic improvement after [facility] was increased to 600 mg p.o. twice daily. Denies any side effects. He is back on ropinirole. Major depressive disorder Symptomatically improved with Pristiq and active follow-up with Behavioral Health at [facility]. Insomnia Stable on Lunesta 3 mg p.o. nightly Anxiety about health Depression He does have an upcoming appointment with America Robles APRN. Tremor Asymptomatic on exam Daytime somnolence Dyspnea Erectile dysfunction HLD (hyperlipidemia) HTN (hypertension) Coronary arteriosclerosis : [place]ER[place] Surgical History Hx of heart artery stent History of cardiac cath History of cholecystectomy History of tonsillectomy History of gastric bypass Family History Mother FHx: mental illness depression Diabetes Cancer Father FHx: mental illness anger issues Diabetes Seizures Other Heart attack Hyperlipidemia Hypertension Social History Smoking Status: Former smoker tobacco type: cigarettes and cigars second hand exposure: No alcohol intake: current alcohol intake frequency: holidays/special occasions only counseling given: No substance use type: denies use current occupational status: employed Travel in the last 8 weeks: None adopted: No caregiver/support person: No foster care: No household members: spouse housing: house lives independently: Yes marital status: number of children: 2 number of grandchildren: 11 education level: high school service: No current occupation: works at the [employer] Hx Recent Travel: No physical activity: none kenneth/judaism: Anglican special kenneth needs: No working smoke detector in home: Yes fire extinguisher in home: No carbon monox detector in home: No firearms in home: Yes firearms unloaded and locked: Yes Have you lived/traveled outside [place] in past 30 days?: No Contact w/someone who lives/traveled outside US past 30 days?: No Exposure to someone with infectious disease in past 14 days?: No Do you have a fever (greater than 100.4 F or 38 C)?: No Have you tested positive for COVID-19: No Exposed to someone with COVID-19 in past 14 days?: No Do you have a sore throat?: No Do you have a cough?: No Do you have any weakness?: No Do you have any diarrhea?: No Are you experiencing any unusual bleeding?: No Do you have any muscle aches/pain?: No Do you have any abdominal pain?: No Are you experiencing loss of taste or smell?: No Other Medical History Have you received the Flu Vaccine for this season: Yes Have you received the Pneumonia Vaccine: No <CHRIS Puentes - Last Filed: 03/07/25 18:10> ROS Obtained: Yes All systems reviewed & no additional complaints except as documented Physical Exam <CHRIS Puentes - Last Filed: 03/07/25 18:10> General General appearance: alert and in no apparent distress Head Head exam: atraumatic and normocephalic Eye Eye exam: Present PERRL and EOMI ENT ENT exam: Present mucous membranes moist Neck Neck exam: Present normal inspection Chest Chest inspection: Present normal inspection and symmetric chest wall rise Respiratory Respiratory exam: Present normal lung sounds bilaterally; Absent respiratory distress, wheezes, stridor, accessory muscle use or prolonged expiratory phase Cardiovascular Cardiovascular exam: Present regular rate and normal rhythm Abdominal Exam Abdominal exam: Present soft; Absent tenderness, guarding or rebound Comment: There is a small area of ecchymosis around the umbilicus, negative Blas Andrade sign, negative Luis Miguel sign, this could be from his supplemental testosterone injection therapy Extremities Exam Extremities exam: Present normal inspection Neurological Exam Neurological exam: Present alert, oriented X3 and other (Essential tremor that is worse with movement of present left upper extremity, patient has 5 out of 5 strength in the bilateral lower and upper extremities, no gross sensation deficit, no nystagmus is noted vertical or rotational or horizontal nystagmus) Psychiatric Psychiatric exam: Present normal affect Skin Skin exam: Present warm and dry Medical Decision Making <CHRIS Puentes - Last Filed: 03/07/25 18:10> Medical Records Medical records reviewed: Yes I reviewed the patient's medical records. Screening: Per USPSTF and CDC recommendations, given the prevalence of disease in our region, it is our hospital?s policy to screen for HIV and viral Hepatitis for all patients aged 18 and over and those with ongoing risk factors. Jarrett Inquiry Pt receiving controlled substance: No Jarrett was queried for this patient: No Vital Signs: 03/07/25 14:41 03/07/25 15:00 03/07/25 15:30 Temperature 98.2 F Temperature Source Oral Pulse Rate 71 69 Pulse Rate [Apical] 69 Respiratory Rate 18 Blood Pressure 124/87 146/92 H Blood Pressure [Left Arm] 121/92 H Blood Pressure Mean [Left Arm] 101 Blood Pressure Source Blood Pressure Source [Left Arm] Automatic Cuff Blood Pressure Position Blood Pressure Position [Left Arm] Sitting 02 Sat by Pulse Oximetry 98 96 97 Oxygen Delivery Method Room Air Room Air Room Air 03/07/25 16:00 03/07/25 16:30 03/07/25 17:00 Temperature Temperature Source Pulse Rate 70 68 72 Pulse Rate [Apical] Respiratory Rate 18 Blood Pressure 141/84 H 139/79 146/89 H Blood Pressure [Left Arm] Blood Pressure Mean [Left Arm] Blood Pressure Source Blood Pressure Source [Left Arm] Blood Pressure Position Blood Pressure Position [Left Arm] 02 Sat by Pulse Oximetry 97 97 97 Oxygen Delivery Method Room Air Room Air Room Air 03/07/25 17:31 03/07/25 18:08 03/07/25 18:09 Temperature 98.0 F 98.3 F Temperature Source Oral Oral Pulse Rate 83 78 78 Pulse Rate [Apical] Respiratory Rate 16 18 18 Blood Pressure 136/79 133/74 133/74 Blood Pressure [Left Arm] Blood Pressure Mean [Left Arm] Blood Pressure Source Automatic Cuff Blood Pressure Source [Left Arm] Blood Pressure Position Sitting Sitting Blood Pressure Position [Left Arm] 02 Sat by Pulse Oximetry 95 Oxygen Delivery Method Room Air Room Air Room Air Lab Data Lab results reviewed: Yes I reviewed the patient's lab results. Lab Results 03/07/25 15:23: WBC 10.2, RBC 6.31 H, Hgb 16.9, Hct 52.1 H, MCV 82.6, MCH 26.8 L , MCHC 32.4, RDW 14.3, Plt Count 297, MPV 8.9, Neut % (Auto) 65.6, Lymph % (Auto) 24.5, [place] % (Auto) 7.6, Eos % (Auto) 1.2, Baso % (Auto) 0.6, Neut # (Auto) 6.7, Lymph # (Auto) 2.5, [place] # (Auto) 0.8, Eos # (Auto) 0.1, Baso # (Auto) 0.1, PT 10.1, INR 0.89 L, D-Dimer 0.46, Sodium 137, Potassium 4.2, Chloride 102, Carbon Dioxide 25, Anion Gap 14.2, BUN 8 L, Creatinine 0.80, Estimated Creat Clear 129, Estimated GFR 98, Est GFR ( Amer) 118, Glucose 120 H, Calcium 8.9, Total Bilirubin 0.8, AST 36, ALT 52, Alkaline Phosphatase 74, Total Creatine Kinase 41 L, Troponin I < 0.01, NT-Pro-B Natriuret Pep < 20.0, Total Protein 7.7, Albumin 4.3, Globulin 3.4 H, Albumin/Globulin Ratio 1.3, Lipase 59, SARS-CoV-2 (PCR) Not detected, Influenza A Untype (PCR) Not detected, Influenza Type B (PCR) Not detected 03/07/25 15:23 03/07/25 15:23 Orders (Tests/Meds): ED MEDICATIONS Discontinued Medications Generic Name Dose Route Start Last Admin Trade Name Freq PRN Reason Stop Dose Admin Iopamidol 80 ml 03/07/25 16:42 03/07/25 16:51 Iopamidol-370 (76%);100ml Bottle IV 03/07/25 16:43 80 ml ONCE ONE Administration Meclizine HCl 50 mg 03/07/25 14:50 03/07/25 14:56 Meclizine 25mg Tablet PO 03/07/25 14:51 50 mg ONCE ONE Administration Sodium Chloride 10 ml 03/07/25 16:42 03/07/25 16:51 Sodium Chloride 0.9% 10ml Syr (Rad Only) IV 04/06/25 16:41 10 ml NEEDED PRN Administration Maintain IV Site Sodium Chloride 50 ml 03/07/25 16:42 03/07/25 16:51 0.9 % Sodium Chloride 50 Ml Vial IV 03/07/25 16:43 50 ml ONCE ONE Administration ORDERS Category Date Time Status CT angio head Stat Cat Scan 03/07/25 15:[address] angio neck Stat Cat Scan 03/07/25 15:[address] head/brain wo con Stat Cat Scan 03/07/25 14:47 Completed XR chest portable Stat Exams 03/07/25 14:46 Completed CK [Creatine Kinase] Stat Lab 03/07/25 15:23 Completed Complete Blood Count Auto Diff Stat Lab 03/07/25 15:23 Completed Comprehensive Metabolic Panel Stat Lab 03/07/25 15:23 Completed D-Dimer Stat Lab 03/07/25 15:23 Completed Lipase Stat Lab 03/07/25 15:23 Completed NT Pro Brain Natriuretic Pep. Stat Lab 03/07/25 15:23 Completed PT INR [Prothrombin Time INR] Stat Lab 03/07/25 15:23 Completed Rapid PCR Covid and Flu A/B Stat Lab 03/07/25 15:23 Completed Troponin I Stat Lab 03/07/25 15:23 Completed Medical Decision Narrative: 64-year-old male presents emergency department with multiple medical complaints, see HPI for details of his medical history, differential diagnosis, not limited to peripheral vertigo, central vertigo, tension headache, Luis Miguel type reaction, panic attack, gastritis, GERD, ACS, costochondritis, cardiac arrhythmia, electrolyte disturbance, PE. Discussed patient case with physician Dr. Red Will obtain Basic laboratory studies, CK level, D-dimer lipase proBNP PT/INR, rapid PCR COVID flu, troponin, EKG, chest x-ray, CT head without contrast for further evaluation/craterization, will give 50 mg p.o. meclizine for dizziness. I reviewed and individually interpreted the patient EKG at approximately 1440, NSR at 71 bpm, LA interval within normal limits, QT interval within normal limits no STEMI. Also will obtain CTA head and neck with and without contrast for further evaluation/characterization. CBC unremarkable I reviewed and independently interpreted the patient's CT head without contrast on the corresponding radiologic report, no acute findings. PT within normal limits, INR within normal limits, patient is negative for COVID-19 influenza A and influenza B. Troponin within normal limits, proBNP within normal limits, CMP grossly unremarkable. I reviewed the patient's chest x-ray and independently interpreted it, along with the corresponding radiologic report, no acute abnormality. Patient D-dimer 0.46, thus ruling out VTE RExamination patient at 5:40 PM, patient's dizziness has improved after meclizine administration. I reviewed and independently interpreted the patient's CTA head and neck with and without contrast along the corresponding radiologic reports, no large vessel stenosis or occlusion, nonstenotic atherosclerotic disease seen within bilateral ICAs predominantly of the cavernous and clinoid majority of the segments,, there is no acute vascular finding, luminal irregularities of the mid left ICA likely represent focal to wall versus vascular webs. I discussed all results with the patient and the family at the bedside. Reexamination the patient at 6 PM, patient's dizziness is still subsided, he has no acute complaints, NIH of 0, no focal neurological deficit. Patient will be discharged home to self-care, this is appropriate, patient most likely has peripheral vertigo in nature, I did discuss need for follow-up with luminal irregularities, noted on the left ICA, I do think this is more of the way that the wall presents on CTA the rather than vascular labs, nevertheless patient will need follow-up on this. Patient and family voiced understand agree with current plan/discharge plan. Will give meclizine p.o. as needed for dizziness, patient and family will follow-up with PCP and ENT providers as directed, strict ED return precautions given. <Meghna Ramos, DO - Last Filed: 03/07/25 15:26> Vital Signs: 03/07/25 14:41 03/07/25 15:00 03/07/25 15:30 Temperature 98.2 F Temperature Source Oral Pulse Rate 71 69 Pulse Rate [Apical] 69 Respiratory Rate 18 Blood Pressure 124/87 146/92 H Blood Pressure [Left Arm] 121/92 H Blood Pressure Mean [Left Arm] 101 Blood Pressure Source Blood Pressure Source [Left Arm] Automatic Cuff Blood Pressure Position Blood Pressure Position [Left Arm] Sitting 02 Sat by Pulse Oximetry 98 96 97 Oxygen Delivery Method Room Air Room Air Room Air 03/07/25 16:00 03/07/25 16:30 03/07/25 17:00 Temperature Temperature Source Pulse Rate 70 68 72 Pulse Rate [Apical] Respiratory Rate 18 Blood Pressure 141/84 H 139/79 146/89 H Blood Pressure [Left Arm] Blood Pressure Mean [Left Arm] Blood Pressure Source Blood Pressure Source [Left Arm] Blood Pressure Position Blood Pressure Position [Left Arm] 02 Sat by Pulse Oximetry 97 97 97 Oxygen Delivery Method Room Air Room Air Room Air 03/07/25 17:31 03/07/25 18:08 03/07/25 18:09 Temperature 98.0 F 98.3 F Temperature Source Oral Oral Pulse Rate 83 78 78 Pulse Rate [Apical] Respiratory Rate 16 18 18 Blood Pressure 136/79 133/74 133/74 Blood Pressure [Left Arm] Blood Pressure Mean [Left Arm] Blood Pressure Source Automatic Cuff Blood Pressure Source [Left Arm] Blood Pressure Position Sitting Sitting Blood Pressure Position [Left Arm] 02 Sat by Pulse Oximetry 95 Oxygen Delivery Method Room Air Room Air Room Air Lab Data Lab Results 03/07/25 15:23: WBC 10.2, RBC 6.31 H, Hgb 16.9, Hct 52.1 H, MCV 82.6, MCH 26.8 L , MCHC 32.4, RDW 14.3, Plt Count 297, MPV 8.9, Neut % (Auto) 65.6, Lymph % (Auto) 24.5, [place] % (Auto) 7.6, Eos % (Auto) 1.2, Baso % (Auto) 0.6, Neut # (Auto) 6.7, Lymph # (Auto) 2.5, [place] # (Auto) 0.8, Eos # (Auto) 0.1, Baso # (Auto) 0.1, PT 10.1, INR 0.89 L, D-Dimer 0.46, Sodium 137, Potassium 4.2, Chloride 102, Carbon Dioxide 25, Anion Gap 14.2, BUN 8 L, Creatinine 0.80, Estimated Creat Clear 129, Estimated GFR 98, Est GFR ( Amer) 118, Glucose 120 H, Calcium 8.9, Total Bilirubin 0.8, AST 36, ALT 52, Alkaline Phosphatase 74, Total Creatine Kinase 41 L, Troponin I < 0.01, NT-Pro-B Natriuret Pep < 20.0, Total Protein 7.7, Albumin 4.3, Globulin 3.4 H, Albumin/Globulin Ratio 1.3, Lipase 59, SARS-CoV-2 (PCR) Not detected, Influenza A Untype (PCR) Not detected, Influenza Type B (PCR) Not detected Orders (Tests/Meds): ED MEDICATIONS Discontinued Medications Generic Name Dose Route Start Last Admin Trade Name Freq PRN Reason Stop Dose Admin Iopamidol 80 ml 03/07/25 16:42 03/07/25 16:51 Iopamidol-370 (76%);100ml Bottle IV 03/07/25 16:43 80 ml ONCE ONE Administration Meclizine HCl 50 mg 03/07/25 14:50 03/07/25 14:56 Meclizine 25mg Tablet PO 03/07/25 14:51 50 mg ONCE ONE Administration Sodium Chloride 10 ml 03/07/25 16:42 03/07/25 16:51 Sodium Chloride 0.9% 10ml Syr (Rad Only) IV 04/06/25 16:41 10 ml NEEDED PRN Administration Maintain IV Site Sodium Chloride 50 ml 03/07/25 16:42 03/07/25 16:51 0.9 % Sodium Chloride 50 Ml Vial IV 03/07/25 16:43 50 ml ONCE ONE Administration ORDERS Category Date Time Status CT angio head Stat Cat Scan 03/07/25 15:[address] angio neck Stat Cat Scan 03/07/25 15:[address] head/brain wo con Stat Cat Scan 03/07/25 14:47 Completed XR chest portable Stat Exams 03/07/25 14:46 Completed CK [Creatine Kinase] Stat Lab 03/07/25 15:23 Completed Complete Blood Count Auto Diff Stat Lab 03/07/25 15:23 Completed Comprehensive Metabolic Panel Stat Lab 03/07/25 15:23 Completed D-Dimer Stat Lab 03/07/25 15:23 Completed Lipase Stat Lab 03/07/25 15:23 Completed NT Pro Brain Natriuretic Pep. Stat Lab 03/07/25 15:23 Completed PT INR [Prothrombin Time INR] Stat Lab 03/07/25 15:23 Completed Rapid PCR Covid and Flu A/B Stat Lab 03/07/25 15:23 Completed Troponin I Stat Lab 03/07/25 15:23 Completed ECG Data Tracing #1: I reviewed this ECG and interpreted as documented below: Normal sinus rhythm with a ventricular of 71 bpm. Some motion artifact given essential tremor. No acute ST changes concerning for ischemia. Normal intervals ECG initial impression date: 03/07/25 ECG initial impression time: 14:40 <Sridhar Red MD - Last Filed: 03/07/25 19:48> Vital Signs: 03/07/25 14:41 03/07/25 15:00 03/07/25 15:30 Temperature 98.2 F Temperature Source Oral Pulse Rate 71 69 Pulse Rate [Apical] 69 Respiratory Rate 18 Blood Pressure 124/87 146/92 H Blood Pressure [Left Arm] 121/92 H Blood Pressure Mean [Left Arm] 101 Blood Pressure Source Blood Pressure Source [Left Arm] Automatic Cuff Blood Pressure Position Blood Pressure Position [Left Arm] Sitting 02 Sat by Pulse Oximetry 98 96 97 Oxygen Delivery Method Room Air Room Air Room Air 03/07/25 16:00 03/07/25 16:30 03/07/25 17:00 Temperature Temperature Source Pulse Rate 70 68 72 Pulse Rate [Apical] Respiratory Rate 18 Blood Pressure 141/84 H 139/79 146/89 H Blood Pressure [Left Arm] Blood Pressure Mean [Left Arm] Blood Pressure Source Blood Pressure Source [Left Arm] Blood Pressure Position Blood Pressure Position [Left Arm] 02 Sat by Pulse Oximetry 97 97 97 Oxygen Delivery Method Room Air Room Air Room Air 03/07/25 17:31 03/07/25 18:08 03/07/25 18:09 Temperature 98.0 F 98.3 F Temperature Source Oral Oral Pulse Rate 83 78 78 Pulse Rate [Apical] Respiratory Rate 16 18 18 Blood Pressure 136/79 133/74 133/74 Blood Pressure [Left Arm] Blood Pressure Mean [Left Arm] Blood Pressure Source Automatic Cuff Blood Pressure Source [Left Arm] Blood Pressure Position Sitting Sitting Blood Pressure Position [Left Arm] 02 Sat by Pulse Oximetry 95 Oxygen Delivery Method Room Air Room Air Room Air Lab Data Lab Results 03/07/25 15:23: WBC 10.2, RBC 6.31 H, Hgb 16.9, Hct 52.1 H, MCV 82.6, MCH 26.8 L , MCHC 32.4, RDW 14.3, Plt Count 297, MPV 8.9, Neut % (Auto) 65.6, Lymph % (Auto) 24.5, [place] % (Auto) 7.6, Eos % (Auto) 1.2, Baso % (Auto) 0.6, Neut # (Auto) 6.7, Lymph # (Auto) 2.5, [place] # (Auto) 0.8, Eos # (Auto) 0.1, Baso # (Auto) 0.1, PT 10.1, INR 0.89 L, D-Dimer 0.46, Sodium 137, Potassium 4.2, Chloride 102, Carbon Dioxide 25, Anion Gap 14.2, BUN 8 L, Creatinine 0.80, Estimated Creat Clear 129, Estimated GFR 98, Est GFR ( Amer) 118, Glucose 120 H, Calcium 8.9, Total Bilirubin 0.8, AST 36, ALT 52, Alkaline Phosphatase 74, Total Creatine Kinase 41 L, Troponin I < 0.01, NT-Pro-B Natriuret Pep < 20.0, Total Protein 7.7, Albumin 4.3, Globulin 3.4 H, Albumin/Globulin Ratio 1.3, Lipase 59, SARS-CoV-2 (PCR) Not detected, Influenza A Untype (PCR) Not detected, Influenza Type B (PCR) Not detected Orders (Tests/Meds): ED MEDICATIONS Discontinued Medications Generic Name Dose Route Start Last Admin Trade Name Freq PRN Reason Stop Dose Admin Iopamidol 80 ml 03/07/25 16:42 03/07/25 16:51 Iopamidol-370 (76%);100ml Bottle IV 03/07/25 16:43 80 ml ONCE ONE Administration Meclizine HCl 50 mg 03/07/25 14:50 03/07/25 14:56 Meclizine 25mg Tablet PO 03/07/25 14:51 50 mg ONCE ONE Administration Sodium Chloride 10 ml 03/07/25 16:42 03/07/25 16:51 Sodium Chloride 0.9% 10ml Syr (Rad Only) IV 04/06/25 16:41 10 ml NEEDED PRN Administration Maintain IV Site Sodium Chloride 50 ml 03/07/25 16:42 03/07/25 16:51 0.9 % Sodium Chloride 50 Ml Vial IV 03/07/25 16:43 50 ml ONCE ONE Administration ORDERS Category Date Time Status CT angio head Stat Cat Scan 03/07/25 15:[address] angio neck Stat Cat Scan 03/07/25 15:[address] head/brain wo con Stat Cat Scan 03/07/25 14:47 Completed XR chest portable Stat Exams 03/07/25 14:46 Completed CK [Creatine Kinase] Stat Lab 03/07/25 15:23 Completed Complete Blood Count Auto Diff Stat Lab 03/07/25 15:23 Completed Comprehensive Metabolic Panel Stat Lab 03/07/25 15:23 Completed D-Dimer Stat Lab 03/07/25 15:23 Completed Lipase Stat Lab 03/07/25 15:23 Completed NT Pro Brain Natriuretic Pep. Stat Lab 03/07/25 15:23 Completed PT INR [Prothrombin Time INR] Stat Lab 03/07/25 15:23 Completed Rapid PCR Covid and Flu A/B Stat Lab 03/07/25 15:23 Completed Troponin I Stat Lab 03/07/25 15:23 Completed Medical Decision Narrative: 64-year-old male presents emergency department with multiple medical complaints, see HPI for details of his medical history, differential diagnosis, not limited to peripheral vertigo, central vertigo, tension headache, Luis Miguel type reaction, panic attack, gastritis, GERD, ACS, costochondritis, cardiac arrhythmia, electrolyte disturbance, PE. Discussed patient case with physician Dr. Red Will obtain Basic laboratory studies, CK level, D-dimer lipase proBNP PT/INR, rapid PCR COVID flu, troponin, EKG, chest x-ray, CT head without contrast for further evaluation/craterization, will give 50 mg p.o. meclizine for dizziness. I reviewed and individually interpreted the patient EKG at approximately 1440, NSR at 71 bpm, LA interval within normal limits, QT interval within normal limits no STEMI. Also will obtain CTA head and neck with and without contrast for further evaluation/characterization. CBC unremarkable I reviewed and independently interpreted the patient's CT head without contrast on the corresponding radiologic report, no acute findings. PT within normal limits, INR within normal limits, patient is negative for COVID-19 influenza A and influenza B. Troponin within normal limits, proBNP within normal limits, CMP grossly unremarkable. I reviewed the patient's chest x-ray and independently interpreted it, along with the corresponding radiologic report, no acute abnormality. Patient D-dimer 0.46, thus ruling out VTE RExamination patient at 5:40 PM, patient's dizziness has improved after meclizine administration. I reviewed and independently interpreted the patient's CTA head and neck with and without contrast along the corresponding radiologic reports, no large vessel stenosis or occlusion, nonstenotic atherosclerotic disease seen within bilateral ICAs predominantly of the cavernous and clinoid majority of the segments,, there is no acute vascular finding, luminal irregularities of the mid left ICA likely represent focal to wall versus vascular webs. I discussed all results with the patient and the family at the bedside. Reexamination the patient at 6 PM, patient's dizziness is still subsided, he has no acute complaints, NIH of 0, no focal neurological deficit. Patient will be discharged home to self-care, this is appropriate, patient most likely has peripheral vertigo in nature, I did discuss need for follow-up with luminal irregularities, noted on the left ICA, I do think this is more of the way that the wall presents on CTA the rather than vascular labs, nevertheless patient will need follow-up on this. Patient and family voiced understand agree with current plan/discharge plan. Will give meclizine p.o. as needed for dizziness, patient and family will follow-up with PCP and ENT providers as directed, strict ED return precautions given. I was consulted by the LUIS F, and we discussed the complexity of the problems being addressed. I approved the treatment and management plan for this patient's care in the emergency department, thus performing a substantive portion of the medical decision making. Sridhar Red MD Critical Care <CHRIS Puentes - Last Filed: 03/07/25 18:10> Critical Care Time Critical Care Time: No
[2025-03-07] MEDS: MECLIZINE 25MG TABLET 50 MG PO (14:56)
--- NOTE | 2025-03-07 15:28 | CT_ITS ---
PROCEDURE INFORMATION: Exam: CTA Neck With Contrast Exam date and time: 03/07/2025 4:45 PM Age: 64 years old Clinical indication: Dizziness and giddiness TECHNIQUE: Imaging protocol: Computed tomographic angiography of the neck with contrast. Exam focused on the cervical segments of the vasculature. 3D rendering (Not supervised by radiologist): MIP and/or 3D reconstructed images were created by the technologist. Radiation optimization: All CT scans at this facility use at least one of these dose optimization techniques: automated exposure control; mA and/or kV adjustment per patient size (includes targeted exams where dose is matched to clinical indication); or iterative reconstruction. Contrast material: ISOVUE 370; Contrast volume: 80 ml; Contrast route: INTRAVENOUS (IV); COMPARISON: CT ANGIO NECK 03/07/2025 4:45 PM FINDINGS: Right common carotid artery: Non stenotic atherosclerotic disease of the distal right common carotid artery. Right internal carotid artery: Non stenotic atherosclerotic disease of the origin of the right internal carotid artery. Right external carotid artery: No occlusion or stenosis of the origin. Left common carotid artery: Non stenotic atherosclerotic disease of the distal left common carotid artery. Left internal carotid artery: Non stenotic disease of the origin of the left internal carotid artery. Luminal irregularities along the mid left internal carotid artery (series 601, image 82). Left external carotid artery: No occlusion or stenosis of the origin. Right vertebral artery: No stenosis. No dissection or occlusion. Left vertebral artery: No stenosis. No dissection or occlusion. Aorta: Atherosclerotic disease of the aorta. Teeth: Multifocal absent dentition. Few small dental caries are noted throughout the dentition. Soft tissues: Normal. No significant soft tissue swelling. Bones/joints: Degenerative changes of the visualized osseous structures. Scattered neural foraminal narrowing, [id number]. No spinal canal narrowing. IMPRESSION: 1. No acute vascular findings. 2. Luminal irregularities of the mid left internal carotid artery likely represents folds in the wall versus vascular webs. REFERENCES: NASCET CRITERIA. The degree of stenosis in the cervical segment of the internal carotid artery is based on NASCET criteria. Normal is no stenosis. Mild is less than 50% stenosis. Moderate is 50-69% stenosis. Severe is 70% to 99% stenosis. Total occlusion is no detectable patent lumen.
--- NOTE | 2025-03-07 15:28 | CT_ITS ---
PROCEDURE INFORMATION: Exam: CTA Head With Contrast, Arteriography Exam date and time: 03/07/2025 4:45 PM Age: 64 years old Clinical indication: Dizziness and giddiness TECHNIQUE: Imaging protocol: Computed tomographic angiography of the head with contrast. Exam focused on the arteries. 3D rendering (Not supervised by radiologist): MIP and/or 3D reconstructed images were created by the technologist. Radiation optimization: All CT scans at this facility use at least one of these dose optimization techniques: automated exposure control; mA and/or kV adjustment per patient size (includes targeted exams where dose is matched to clinical indication); or iterative reconstruction. Contrast material: ISOVUE 370; Contrast volume: 80 ml; Contrast route: INTRAVENOUS (IV); COMPARISON: CT HEAD/BRAIN WO CON 03/07/2025 3:06 PM FINDINGS: ANTERIOR CIRCULATION: Right internal carotid artery: Intracranial segment is patent with no significant stenosis. No aneurysm. Non stenotic calcified and noncalcified atherosclerotic disease. Right middle cerebral artery: No occlusion or significant stenosis. No aneurysm. Right anterior cerebral artery: No occlusion or significant stenosis. No aneurysm. Left internal carotid artery: Intracranial segment is patent with no significant stenosis. No aneurysm. Non stenotic calcified and noncalcified atherosclerotic disease. Left middle cerebral artery: No occlusion or significant stenosis. No aneurysm. Left anterior cerebral artery: No occlusion or significant stenosis. No aneurysm. POSTERIOR CIRCULATION: Right vertebral artery: No occlusion or significant stenosis. No aneurysm. Left vertebral artery: No occlusion or significant stenosis. No aneurysm. Basilar artery: No occlusion or significant stenosis. No aneurysm. Right posterior cerebral artery: No occlusion or significant stenosis. No aneurysm. Left posterior cerebral artery: No occlusion or significant stenosis. No aneurysm. Brain: No definite mass, mass effect, or midline shift. Cerebral ventricles: No ventriculomegaly. Bones/joints: Unremarkable. No acute fracture. Soft tissues: Unremarkable. IMPRESSION: 1. No large vessel stenosis or occlusion. 2. Non stenotic atherosclerotic disease is seen within the bilateral intracranial carotid arteries predominantly of the cavernous and clinoid majority of the segments.
[2025-03-07 15:30] LABS: Coronavirus 19, PCR Not Detected (NotDetected); Influenza A, PCR Not Detected (NotDetected); Influenza B, PCR Not Detected (NotDetected)
[2025-03-07 15:38] LABS: Basophils # 0.1 K/mm3 (0-0.2); Basophils % 0.6 % (0.1-2.0); Eosinophils # 0.1 K/mm3 (0.0-0.4); Eosinophils % 1.2 % (0.1-12.0); Hematocrit 52.1 % (42.0-52.0); Hemoglobin 16.9 g/dL (14.1-18.0); Lymphocytes # 2.5 K/mm3 (0.7-4.5); Lymphocytes % 24.5 % (10-50); Mean Corpuscular HGB Conc 32.4 g/dL (31.8-35.4); Mean Corpuscular Hemoglobin 26.8 pg (27.0-31.2); Mean Corpuscular Volume 82.6 fl (80-94); Mean Platelet Volume 8.9 fl (7.4-10.4); Monocytes # 0.8 K/mm3 (0.1-1.0); Monocytes % 7.6 % (1.7-9.3); Neutrophils # 6.7 K/mm3 (1.8-7.8); Neutrophils % 65.6 % (37.0-80.0); Platelet Count 297 K/mm3 (142-424); Red Blood Count 6.31 M/mm3 (4.60-6.20); Red Cell Distribution Width 14.3 % (11.5-17.5); White Blood Count 10.2 K/mm3 (4.8-10.8)
[2025-03-07 15:47] LABS: Alanine Aminotransferase 52 U/L (12-78); Albumin Level 4.3 g/dl (3.5-5.0); Albumin/Globulin Ratio 1.3 (1.1-1.8); Alkaline Phosphatase 74 U/L (38-126); Anion Gap 14.2 mEq/L (5-15); Aspartate Amino Transferase 36 U/L (17-59); Bilirubin,Total 0.8 mg/dl (0.2-1.3); Blood Urea Nitrogen 8 mg/dl (9-20); Calcium 8.9 mg/dl (8.4-10.2); Carbon Dioxide 25 mmol/L (22.0-30.0); Chloride 102 mmol/L (98-107); Creatine Kinase 41 U/L (55-170); Creatinine Clearance Estimated 129 mL/min (50-200); Estimated Glomerular Filt Rate 98 ml/min (>60); GFR (African American) 118 ML/MIN (>60); Globulin 3.4 g/dL (1.3-3.2); Glucose 120 mg/dl (74-100); Lipase 59 U/L (23-300); Potassium 4.2 mmoL/L (3.5-5.1); Sodium 137 mmol/L (136-145); Total Protein,Serum 7.7 g/dl (6.3-8.2)
[2025-03-07 15:52] LABS: INR 0.89 (0.9-1.1); Prothrombin Time 10.1 seconds (10.1-12.5)
[2025-03-07 15:59] LABS: NT Pro Brain Natriuretic Pep. < 20.0 pg/mL (0-125)
[2025-03-07 16:06] LABS: Troponin I < 0.01 ng/ml (0.00-0.034)
[2025-03-07 16:09] LABS: D-Dimer 0.46 ug/mL (0.0-0.5)
--- NOTE | 2025-03-07 16:44 | PC.NURSE ---
Pt to CT scan by wheel chair
[2025-03-07] MEDS: 0.9 % SODIUM CHLORIDE 50 ML VIAL IV (16:51)
[2025-03-07] MEDS: IOPAMIDOL-370 (76%);100ML BOTTLE 80 ML IV (16:51)
[2025-03-07] MEDS: SODIUM CHLORIDE 0.9% 10ML SYR (RAD ONLY) 10 ML IV (16:51)
--- NOTE | 2025-03-07 17:26 | PC.NURSE ---
1430 nursing assessment: pt is a GCS 15, pupils are MELINA 3mm, pt states he has had dizziness that is relieved with rest.
== END 2025-03-07 18:10 | disposition home or self-care (01) ==
PROVIDERS: Physician Assistant; Emergency Provider Emergency Medicine; PCP Family Medicine
DX: R42 Dizziness and giddiness (principal); R51.9 Headache, unspecified; R53.83 Other fatigue; R53.81 Other malaise
CPT/HCPCS: 70450; 70496; 70498; 71045; 80053; 82550; 83690; 83880; 84484; 85025; 85378; 85610; 87636; 93005; 99285; Q9967

== ENCOUNTER 2025-03-20 12:03 | Outpatient (CLI) | payer MEDICARE, BC, SELFPAY ==
[2025-03-21 07:14] LABS: Sex Hormone Binding Globulin 36.9 nmol/L (19.3-76.4)
[2025-03-21 08:25] LABS: Testosterone,Total 478 ng/dL (264-916)
== END 2025-03-20 23:59 | disposition home or self-care (01) ==
LOC: LAB 12:04
PROVIDERS: PCP Family Medicine; Visit Provider Urology
DX: N40.0 Benign prostatic hyperplasia without lower urinary tract symptoms (principal); R53.83 Other fatigue
CPT/HCPCS: 36415; 84270; 84403

== ENCOUNTER 2025-05-04 16:20 | Outpatient (CLI) | payer MEDICARE, BC, SELFPAY ==
[2025-05-04 18:39] LABS: Creatinine,Urine Random 80 mg/dL (Not Estab.)
[2025-05-04 19:17] LABS: Alanine Aminotransferase 45 U/L (12-78); Albumin Level 4.5 g/dl (3.5-5.0); Albumin/Globulin Ratio 1.5 (1.1-1.8); Alkaline Phosphatase 67 U/L (38-126); Anion Gap 9.5 mEq/L (5-15); Aspartate Amino Transferase 37 U/L (17-59); Bilirubin,Total 0.7 mg/dl (0.2-1.3); Blood Urea Nitrogen 9 mg/dl (9-20); Calcium 9.1 mg/dl (8.4-10.2); Carbon Dioxide 29 mmol/L (22.0-30.0); Chloride 104 mmol/L (98-107); Estimated Glomerular Filt Rate 114 ml/min (>60); GFR (African American) 137 ML/MIN (>60); Globulin 3.1 g/dL (1.3-3.2); Glucose 107 mg/dl (74-100); Potassium 4.5 mmoL/L (3.5-5.1); Sodium 138 mmol/L (136-145); Total Protein,Serum 7.6 g/dl (6.3-8.2)
[2025-05-04 19:47] LABS: Prostate Specific Ag Screen 1.8 ng/ml (0.0-4.0)
[2025-05-04 20:06] LABS: Hemoglobin A1C 7.2 % (4.0-6.0); Vitamin B12 793 pg/mL (239-931)
[2025-05-04 20:20] LABS: Microalbumin/Creatinine Ratio 7.7
--- OUTSIDE RECORDS SUMMARY | 2025-05-05 14:39 | XMS_ITS | Clinical Summary ---
Author Organization [facility] Address [facility] [address] [place] [place] [address] Care Team Providers Care Sulfate Drier Machine Operator Name Role Phone Unavailable Primary Care Provider Unavailabl e Social History Tobacco Use Types Packs/Day Years Used Date Smoking Tobacco: Never Assessed Sex and Gender Information Value Date Recorded Sex Assigned at Not on file Legal Sex Male 9:08 PM EDT Gender Identity Not on file Sexual Orientation Not on file Plan of Treatment Health Maintenance Due Date Last Done Comments Hepatitis C Screening 1960 DTap,Tdap,and Td (1 - Tdap) 1972 Colonoscopy 2006 PSA YEARLY 2011 Pneumococcal 50+ (1 of 1 - PCV) 2011 Shingrix (#1) 2011 Influenza Vaccine (Season Ended) 2025 RSV Vaccine (60+ or ) (1 - 1-dose 75+ series) 2036 HPV Aged Out No longer eligi ble based on patient's age to complete this topic Meningococcal conjugate sung nt 4 (MCV4) Aged Out No longer eligible b ased on patient's age to complete this topic Pneumococcal 0-49 Aged Out No longer eligible based on patient's age to complete this topic RSV Immunization (<20 months) Aged Out No longer eligible based on patient's age to complete this topic
--- OUTSIDE RECORDS SUMMARY | 2025-05-05 14:39 | XMS_ITS ---
Author Organization Unknown TREATMENT PLAN Planned Care Start Date Provider Encounter for Check-up [phone] [facility]
--- OUTSIDE RECORDS SUMMARY | 2025-05-05 14:40 | XMS_ITS ---
Laboratory report Created on: March 23, 2025 TANIKA ROCHA : 1960 Sex: Male Author Organization Unknown PROBLEMS Problems List Code Description RESULTS Laboratory Orders Date Order Code Test 2025-03-20 [id number] TESTOSTERONE 2025-03-206 SEX HORM BINDING GLOB, SERUM Laboratory Results Date LOINC Test Value Unit Reference Range Interpre tation 2025-03-20 [id number] TESTOSTERONE 478 NG/DL [id number] 6573-04-21 32115-4 SEX HORM BINDING GLOB, SERUM 36.9 NMOL/L 19.3-76.4
--- OUTSIDE RECORDS SUMMARY | 2025-05-05 14:40 | XMS_ITS | Clinical Summary ---
Author Organization Healthcare Address [address] [place] [address] Care Team Providers Care Horseshoer Name Role Phone Unavailable Primary Care Provider Unavailabl e Family History Medical History Relation Name Comments Cardiac disorder Father Diabetes Father Hypertension Father Seizures Father Brain cancer Mother Diabetes Mother Heart attack Mother Hypertension Mother Relation Name Status Comments Father Mother Social History Tobacco Use Types Packs/Day Years Used Date Smoking Tobacco: Never Alcohol Use Standard Drinks/Week Comments Yes 0 (1 standard drink = 0.6 oz pur e alcohol) Sex and Gender Information Value Date Recorded Sex Assigned at Not on file Legal Sex Male 6:29 PM EDT Gender Identity Not on file Sexual Orientation Not on file Last Filed Vital Signs Vital Sign Reading Time Taken Comments Blood Pressure 159/91 04/29/2023 4:02 PM EDT Pulse 60 04/29/2023 4:02 PM EDT Temperature - - Respiratory Rate - - Oxygen Saturation - - Inhaled Oxygen Concentration - - Weight 121 kg (267 lb) 04/29/2023 4:02 PM EDT Height 182.9 cm (6') 04/29/2023 4:02 PM EDT Body Mass Index 36.21 04/29/2023 4:02 PM EDT Plan of Treatment Health Maintenance Due Date Last Done Comments [facility]-Depression Screening 1960 [facility]-/Child/Adol SDOH Screenings 1960 [facility]- SDOH Screenings 1979 [facility]-Adult SDOH Screenings 1979 CT Colonography 2006 Colonoscopy 2006 FIT-DNA 2006 FIT 2006 FOBT 2006 Sigmoidoscopy 2006 [facility]-Colorectal Cancer Screening 2006 [facility]-Pneumococcal Vaccine: 50 + Years (1 of 1 - PCV) 2011 [facility]-Zoster Vaccines (1 of 2) 2011 [id number] Vaccine ( season) 2024 12/10/2021, 12/25/2020, 11/27/2020 [facility]-Influenza Vaccine (Seaso n Ended) 2025 [facility]-DTaP,Tdap,and Td Vaccine s (2 - Td or Tdap) 11/09/2027 11/09/2017 [facility]-RSV Vaccine: 60+ Years o r (1 - 1-dose 75+ series) 2036 HPV Vaccines Aged Out No longer eligi ble based on patient's age to complete this topic [facility]-HIB Vaccines Aged Out No longer e ligible based on patient's age to complete this topic [facility]-Hepatitis A Vaccines Aged Out No longer eligible based on patient's age to complete this topic [facility]-IPV Vaccines Aged Out No longer e ligible based on patient's age to complete this topic [facility]-Rotavirus Vaccines Aged Out No lo nger eligible based on patient's age to complete this topic
--- OUTSIDE RECORDS SUMMARY | 2025-05-05 14:40 | XMS_ITS | Clinical Summary ---
Author Organization [facility] Phone Care Team Providers Care Tactical Debriefer Officer Name Role Phone Shankar Rodriguez MD Primary Care Provider [phone] Allergies No known active allergies Medications albuterol (PROAIR HFA) 90 mcg/actuation Inhl HFA Aerosol Inhaler Inhale 2 Puffs into the lungs 4 times daily. 11/24/20 16 Active ARIPiprazole (ABILIFY) 5 mg Oral Tablet 06/05/20 22 Active atorvastatin (LIPITOR) 40 mg Oral Tablet Take 40 mg by mouth daily. 04/02/20 22 Active bisoprolol (ZEBETA) 5 mg Oral Tablet Take 5 mg by mouth daily. 05/28/20 22 Active DULoxetine (CYMBALTA) 60 mg Oral Capsule, Delayed Release(E.C.) 05/06/20 22 Active Eszopiclone (LUNESTA) 3 mg Oral Tablet TAKE 1 TABLET BY MOUTH EVERYDAY AT BEDTIME 05/20/20 22 Active fUROsemide (LASIX) 20 mg Oral Tablet 05/30/20 22 Active levETIRAcetam (KEPPRA) 500 mg Oral Tablet 03/26/20 22 Active losartan (COZAAR) 50 mg Oral Tablet Take 50 mg by mouth daily. 05/28/20 22 Active meloxicam (MOBIC) 15 mg Oral Tablet Take 15 mg by mouth daily. 05/29/20 22 Active metFORMIN (GLUCOPHAGE) 500 mg Oral Tablet Take 500 mg by mouth daily. 05/16/20 22 Active omeprazole (PRILOSEC) 40 mg Oral Capsule, Delayed Release(E.C.) Take by mouth daily. 05/28/20 22 Active polyethylene glycol (GLYCOLAX) 17 gram/dose Oral Powder Take 17 g by mouth daily. Active tamsulosin (FLOMAX) 0.4 mg Oral Capsule Take by mouth daily. Active benztropine (COGENTIN) 1 mg Oral Tablet Take by mouth daily. Active LORazepam (ATIVAN) 0.5 mg Oral Tablet Take 0.5 mg by mouth every 6 hours as needed for Anxiety. Active desvenlafaxine succinate (PRISTIQ) 100 mg Oral Tablet Sustained Release 24 hr Take 50 mg by mouth daily. Active meloxicam (MOBIC) 15 mg Oral TabletIndications: Acute pain of right knee,Acute medial meniscal injury of right knee, subsequent encounter,Primary osteoarthritis of right knee,Primary osteoarthritis of left knee Take 1 Tablet by mouth daily. 30 Tablet 2 07/08/20 24 Active clopidogreL (PLAVIX) 75 mg Oral Tablet Take 75 mg by mouth. 04/08/20 24 Active aspirin 81 mg Oral Tablet, Chewable 81 mg. 05/11/20 23 Active gabapentin enacarbil 600 mg Oral Tablet Sustained Release 600 mg. 10/13/20 24 Active olanzapine-samidor alvarez 5-10 mg Oral Tablet 1 Tablet. 05/12/20 24 Active rOPINIRole (REQUIP) 2 mg Oral Tablet 2 mg. 10/13/20 24 Active Tadalafil 20 mg Oral Tablet 20 mg. 09/19/20 24 Active tadalafiL (CIALIS) 5 mg Oral Tablet Take 5 mg by mouth daily. Active testosterone enanthate 100 mg/0.5 mL SubQ Auto-Injector 100 mg. 09/22/20 24 Active XYOSTED 75 mg/0.5 mL SubQ Auto-Injector inject 1 syringe subcutaneously once a week 10/19/20 24 Active Active Problems Problem Noted Date Diagnosed Date Acute medial meniscal injury of right knee 06/06 Primary osteoarthritis of right knee 06/06/2022 Acute pain of right knee 06/05/2022 Surgical History Surgery Date Site/Laterality Comments GASTRIC BYPASS SURGERY Medical History Medical History Date Comments Parkinson's disease (HCC) Diabetes mellitus (HCC) Social History Tobacco Use Types Packs/Day Years Used Date Smoking Tobacco: Some Days Cigarettes Smokeless Tobacco: Never Tobacco Cessation:Ready to Q uit: Not Asked; Counseling Given: Not Answered Alcohol Use Standard Drinks/Week Comments Yes 0 (1 standard drink = 0.6 oz pur e alcohol) socially Sex and Gender Information Value Date Recorded Sex Assigned at Not on file Legal Sex Male 10:17 PM EDT Gender Identity Not on file Sexual Orientation Not on file Obstetrics History Last Filed Vital Signs Vital Sign Reading Time Taken Comments Blood Pressure 156/89 09/22/2022 5:53 PM EDT Pulse 87 09/22/2022 5:53 PM EDT Temperature 36.6 C (97.8 F) 09/22/2022 6:00 PM EDT Respiratory Rate 16 09/22/2022 5:53 PM EDT Oxygen Saturation 97% 09/22/2022 5:53 PM EDT Inhaled Oxygen Concentration - - Weight 118.8 kg (262 lb) 09/22/2022 5:53 PM EDT Height 182.9 cm (6') 06/06/2022 8:54 AM EDT Body Mass Index 35.53 06/06/2022 8:54 AM EDT Plan of Treatment Health Maintenance Due Date Last Done Comments Wellness Exam Medicare 1963 Hepatitis C Screening 1979 Pneumococcal Vaccine 50+ (1 of 2 - PCV) 1980 Cologuard 2006 Colon Cancer Screening 2006 Colonoscopy 2006 FIT 2006 Sigmoidoscopy 2006 Virtual Colonography 2006 Zoster (1 of 2) 2011 COVID-19 Vaccine (4 - 2023-2 5 season) 2024 12/10/2021, 12/25/2020, 11/27/2020 Influenza Vaccine (Season Ended) 2025 10/19/2023 DTaP/TDaP/Td (3 - Td or Tdap) 10/15/2034, 11/09/2017 Hepatitis B Vaccine Completed 03/12/1993, 10/16/1992, 09/06/1992 Meningococcal B Vaccine Aged Out No l onger eligible based on patient's age to complete this topic Insurance ANTHEM ANTHEM ANTHEM PPO Care Teams Tactical Debriefer Officer Relationship Specialty Start Date End Date Shankar Rodriguez MD [facility] [address] [facility] [id number] PCP - General Family Medicine 09/22/22
--- OUTSIDE RECORDS SUMMARY | 2025-05-05 14:40 | XMS_ITS | Referral Summary ---
Author Organization [facility] Address [address] [place] [address] [place] [address] Care Team Providers Care Harbor Tug Captain Name Role Phone Unavailable Primary Care Provider Unavailabl e Social History Tobacco Use Types Packs/Day Years Used Date Smoking Tobacco: Never Assessed Sex and Gender Information Value Date Recorded Sex Assigned at Not on file Legal Sex Male 9:08 PM EDT Gender Identity Not on file Sexual Orientation Not on file Plan of Treatment Not on file
== END 2025-05-04 23:59 | disposition home or self-care (01) ==
LOC: LAB.DROPOF 05-05 14:38
PROVIDERS: PCP Nurse Practitioner; Visit Provider Nurse Practitioner
DX: Z12.5 Encounter for screening for malignant neoplasm of prostate (principal); E11.69 Type 2 diabetes mellitus with other specified complication; E66.9 Obesity, unspecified
CPT/HCPCS: 80053; 82043; 82570; 82607; 83036; G0103

== ENCOUNTER 2025-06-19 11:08 | Outpatient (CLI) | payer MEDICARE, BC, SELFPAY ==
--- OUTSIDE RECORDS SUMMARY | 2025-06-19 11:17 | XMS_ITS | Clinical Summary ---
Author Organization [facility] Address [facility] [address] [place] [place] [address] Care Team Providers Care Act English Tutor Name Role Phone Unavailable Primary Care Provider [...] PCV) 2011 Shingrix (#1) 2011 Influenza Vaccine (#1) 2025 RSV Vaccine (60+ or ) (1 [...]
--- OUTSIDE RECORDS SUMMARY | 2025-06-19 11:17 | XMS_ITS | Clinical Summary ---
Author Organization [facility] Address [address] [place] [address] Care Team Providers Care Gas Plant Worker Name Role Phone Shankar Rodriguez MD Primary Care Provider [phone] [phone] Allergies No known active allergies Medications DULoxetine (CYMBALTA) 60 MG capsule Take 60 mg by mouth Daily. Active primidone (MYSOLINE) 50 MG tablet Take 50 mg by mouth 2 (Two) Times a Day. Active polyethylene glycol (MIRALAX) packet Take 17 g by mouth Daily. Active PROAIR HFA 108 (90 BASE) MCG/ACT inhaler INHALE 2 PUFFS FOUR TIMES A DAY 1 6 Active PROCTOSOL HC 2.5 % rectal cream APPLY 3 TIMES A DAY NEEDED RECTALLY 1 6 Active levETIRAcetam (KEPPRA) 250 MG tablet TAKE 2 TABLET BEDTIME 0 6 Active pramipexole (MIRAPEX) 1 MG tablet TAKE 1 TABLET EVERYDAY AT BEDTIME 5 6 Active lidocaine (XYLOCAINE) 5 % ointment APPLY TOPICALLY 3 TIMES A DAY 1 6 Active amoxicillin-cla vulanate (AUGMENTIN) 875-125 MG per tablet Take 1 tablet by mouth Every 12 (Twelve) Hours. 14 tablet 7 Active ondansetron (ZOFRAN) 4 MG tablet Take 1 tablet by mouth Every 8 (Eight) Hours As Needed for Nausea or Vomiting. 20 tablet 7 Active oxyCODONE-aceta minophen (PERCOCET) 7.5-325 MG per tablet Take 1 tablet by mouth Every 6 (Six) Hours As Needed for Severe Pain . 12 tablet 7 Active Active Problems Problem Noted Date Diagnosed Date Iron deficiency anemia 11/24/2016 Coronary artery disease CHF (congestive heart failure) Cardiomegaly Hypertension Asthma YOSELIN (obstructive sleep apnea) History of angina pectoris Abnormal PFT IBS (irritable bowel syndrome) Hyperlipidemia Type 2 diabetes mellitus Overview (11/24/2016): SINCE 2014 Hypoalbuminemia GERD (gastroesophageal reflux disease) Overview (05/11/2017): real bad Stress incontinence Rheumatoid arthritis RLS (restless legs syndrome) Overview (05/11/2017): w/ involuntary limb movement Insomnia Overview (05/11/2017): severe Low testosterone Joint pain Anxiety Depression Hemorrhoids Resolved Problems Problem Noted Date Diagnosed Date Resolved Date Morbid obesity with BMI of 40.0-44.9, adult 11/14/2016 05/11/2017 Hiatal hernia 05/11/2017 Anemia 05/11/2017 Overview (05/11/2017): 12.3/37.3 NC Immunizations Immunization Administration Dates Next Due Tdap 11/09/2017 Family History Medical History Relation Name Comments Diabetes Father Hypertension Father Diabetes Maternal Grandfather Cancer Mother Hypertension Mother Heart attack Paternal Grandfather Stroke Paternal Grandmother Relation Name Status Comments Father Maternal Grandfather Mother Paternal Grandfather Paternal Grandmother Social History Tobacco Use Types Packs/Day Years Used Date Smoking Tobacco: Never Smokeless Tobacco: Never Alcohol Use Standard Drinks/Week Comments No 0 (1 standard drink = 0.6 oz pur e alcohol) Abuse Screen Answer Date Recorded Unsafe at Home or Work/School Not on file Feels Threatened by Someone? Not on file 07/2023 Does Anyone Keep You from Co ntacting Others or Doint Things Outside the Home? Not on file 09/07/2023 Physical Sign of Abuse Present Not on file 1 Housing Stability Answer Date Recorded Current Living Arrangements Not on file 07/2023 Potentially Unsafe Housing Conditions Not on tasha e 09/07/2023 Family and Community Support Answer Ochoa e Recorded Help with Day-to-Day Activities Not on file 09/07/2023 Lonely or Isolated Not on file 09/07/2023 Employment Answer Date Recorded Do you want help finding or keeping work or a gareth b? Not on file 09/07/2023 Disabilities Answer Date Recorded Concentrating, Remembering, or Making Decisions Difficulty Not on file 09/07/2023 Doing Errands Independently Difficulty Not on fi le 09/07/2023 Education Answer Date Recorded Help with school or training? Not on file Preferred Language Not on file 09/07/2023 Sex and Gender Information Value Date Recorded Sex Assigned at Not on file Legal Sex Male 11:35 AM EDT Gender Identity Not on file Sexual Orientation Not on file Last Filed Vital Signs Vital Sign Reading Time Taken Comments Blood Pressure 125/89 11/09/2017 1:00 PM EST Pulse 76 11/09/2017 1:00 PM EST Temperature 36.6 C (97.8 F) 11/09/2017 10:48 AM EST Respiratory Rate 18 11/09/2017 1:00 PM EST Oxygen Saturation 97% 11/09/2017 1:00 PM EST Inhaled Oxygen Concentration - - Weight 97.5 kg (215 lb) 11/09/2017 10:48 AM EST Height 182.9 cm (6') 11/09/2017 10:48 AM EST Body Mass Index 29.16 11/09/2017 10:48 AM EST Plan of Treatment Health Maintenance Due Date Last Done Comments LIPID PANEL 1961 COLOGUARD 2006 COLON CANCER SCREENING 5 YEAR SIGMOIDOSCOPY 2006 COLONOSCOPY [address] CANCER SCREENING 2006 CT COLONOGRAPHY 2006 FECAL OCCULT BLOOD TEST 2006 FIT Testing (1 year) 2006 Pneumococcal Vaccine 50+ (1 of 1 - PCV) 2011 ZOSTER VACCINE (1 of 2) 2011 ANNUAL PHYSICAL 05/11/2017 HEPATITIS C SCREENING 05/11/2017 COVID-19 Vaccine (1 - 2023- season) 2024 INFLUENZA VACCINE 08/30/2025 TDAP/TD VACCINES (2 - Td or Tdap) 11/09/2027 017 HEMOGLOBIN A1C Discontinued 11/13/2016 Medical Devices Implanted Type Area Geriatric Case Manager Device Identifier Shelf Expiration Date Model / Serial / Lot Stplln Peristrip Dry Veritas Ech60 6fire - [id number] Implanted:Qty : 1 on 11/14/2016 by Aden Boyce MD at [facility] Implant N/A: Stomach SYNOVIS [id number] 09/09/2019 [id number] / / [id number] Description:1ST & 2ND Stplln Peristrip Dry Veritas Ech60 6fire - [id number] Implanted:Qty : 1 on 11/14/2016 by Aden Boyce MD at [facility] Implant N/A: Stomach SYNOVIS [id number] 09/09/2019 [id number] / / [id number] Description:5TH & 6TH Stplln Peristrip Dry Veritas Ech60 6fire - [id number] Implanted:Qty : 1 on 11/14/2016 by Aden Boyce MD at [facility] Implant N/A: Stomach SYNOVIS [id number] 09/09/2019 [id number] / / [id number] Description:3RD & 4TH Stplln Peristrip Dry Veritas Ech60 6fire - [id number] Implanted:Qty : 1 on 11/14/2016 by Aden Boyce MD at [facility] Implant N/A: Stomach SYNOVIS 05/07/2019 [id number] / / [id number] Description:7TH Procedures Procedure Name Priority Date/Time Associated Diagnosis Comments HEMOGLOBIN A1C Routine 11/13/2016 4:41 PM EST from Last 3 Months or Most Recently Relevant to Health Maintenance Results * (ABNORMAL) Hemoglobin A1c (11/13/2016 4:41 PM EST) Hemoglobin A1C 6.20(H) 4.80 - 5.60 % 11/13/2016 5:26 PM EST [facility] Blood Venipuncture / Unknown 11/13/2016 4:41 PM EST 11/13/2016 4:52 PM EST Narrative [facility] - 11/13/2016 5:26 PM EST The [place] Diabetes [employer] recommends maintenance of Hemoglobin A1C at 7.0% or lower. Goals for Hemoglobin A1C reduction may need to be modified if hypoglycemia is a problem. Aden Boyce MD LAB BLOOD ORDERABLES Final Result [facility]
[address] [id number], from Last 3 Months or Most Recently Relevant to Health Maintenance Insurance MEDICARE A & B Member Subscriber Plan / Payer (Ef fective 2014-Present) Name:Denis Fajardo Member ID:[id number] Relation to Subscriber:Self Name:Denis Fajardo Subscriber ID:[id number] Payer ID:[id number] Group ID:Not on file Type:Not on file Address: [facility] [id number] Advance Directives * Full Code (Latest Code Status on File) Date Activated Date Inactivated Comments 11/14/2016 3:27 PM 11/15/2016 8:02 PM Care Teams Gas Plant Worker Relationship Specialty Start Date End Date Shankar Rodriguez MD [address] [facility] [address] [place] [address] PCP - General Family Medicine 11/13/16
--- OUTSIDE RECORDS SUMMARY | 2025-06-19 11:17 | XMS_ITS | Clinical Summary ---
Author Organization [facility] Address [address] [place] [address] Care Team Providers Care Wood Room Supervisor Name Role Phone Unavailable Primary Care Provider [...] 2011 UKY-Zoster Vaccines (1 of 2) 2011 RCO-UNVLA-49 Vaccine ( season) 2024 12/10/2021, 12/25/2020, 11/27/2020 UKY-Influenza Vaccine (#1) 2025 UKY-DTaP,Tdap,and Td Vaccine s (2 - [...]
--- OUTSIDE RECORDS SUMMARY | 2025-06-19 11:17 | XMS_ITS | Referral Summary ---
Author Organization [facility] Address [address] [place] [address] [place] [place] [address] Care Team Providers Care Corporate Travel Agent Name Role Phone Unavailable Primary Care Provider [...]
--- OUTSIDE RECORDS SUMMARY | 2025-06-19 11:17 | XMS_ITS | Clinical Summary ---
Author Organization [facility] Phone Care Team Providers Care Rock Dust Sprayer Name Role Phone Shankar Rodriguez MD Primary Care Provider [phone] [phone] Allergies No known active allergies Medications albuterol [...] season) 2024 12/10/2021, 12/25/2020, 11/27/2020 Influenza Vaccine (#1) 2025 10/19/2023 DTaP/TDaP/Td (3 - Td or Tdap) 10/15/2034, 11/09/2017 Hepatitis B Vaccine Completed 03/12/1993, 10/16/1992, 09/06/1992 Meningococcal B Vaccine Aged Out No l onger eligible based on patient's age to complete this topic Insurance ANTHEM ANTHEM ANTHEM PPO Care Teams Rock Dust Sprayer Relationship Specialty Start Date End Date Shankar [facility] MD [facility] [address] [facility] [id number] PCP - General Family Medicine 09/22/22
[2025-06-19 11:53] LABS: Hematocrit 51.1 % (42.0-52.0); Hemoglobin 16.4 g/dL (14.1-18.0); Immature Granulocytes % 0.9 %; Mean Corpuscular HGB Conc 32.1 g/dL (31.8-35.4); Mean Corpuscular Hemoglobin 26.7 pg (27.0-31.2); Mean Corpuscular Volume 83.2 fl (80-94); Nucleated Red Blood Cells % 0 %; Platelet Count 307 K/mm3 (142-424); Red Blood Count 6.14 M/mm3 (4.60-6.20); Red Cell Distribution Width-SD 42.6 fL; White Blood Count 8.0 K/mm3 (4.8-10.8)
[2025-06-20 08:13] LABS: Testosterone,Total 591 ng/dL (264-916)
== END 2025-06-19 23:59 | disposition home or self-care (01) ==
LOC: LAB 11:11
PROVIDERS: PCP Family Medicine; Visit Provider Urology
DX: N40.0 Benign prostatic hyperplasia without lower urinary tract symptoms (principal); R53.83 Other fatigue
CPT/HCPCS: 36415; 84270; 84403; 85025

== ENCOUNTER 2025-07-24 11:47 | Outpatient (CLI) | payer MEDICARE, BC, SELFPAY ==
--- OUTSIDE RECORDS SUMMARY | 2025-07-14 14:15 | XMS_ITS | Encounter Summary ---
Author Organization [facility] Address [address] [place] [address] Care Team Providers Care Tennis Director Name Role Phone Shankar Rodriguez MD Primary Care Provider [phone] [phone] Reason for Referral * In Office Procedure (Routine) - AFF Authorization Not Needed Specialty Diagnoses / Procedures Referred By Conteda t Referred To Contact Orthopedic Surgery Diagnoses Primary osteoarthritis of both knees Procedures [facility] MEDICATION/PROCEDURE AUTH Shankar Uriostegui MD [address] [place] [address] Phone: tel: fax: [place] [address] Phone: tel: fax: Referral ID Status Reason Start Date Expiration Date Visits Requested Visits Authorized [id number] AFF Authorization Not Needed 07/14/2025 07/14/2026 1 1 Reason for Visit * Reason Comments Follow-up Follow-up Encounter Details Date Type Department Care Team (Latest Contact Info) Description 07/14/2025 2:15 PM EDT Office Visit [facility] [address] [place] [address] Shankar Uriostegui MD [address] [place] [address] Primary osteoarthritis of both knees (Primary Dx) Social History Tobacco Use Types Packs/Day Years Used Date Smoking Tobacco: Some Days Cigarettes Smokeless Tobacco: Never Alcohol Use Standard Drinks/Week Comments Yes 0 (1 standard drink = 0.6 oz pur e alcohol) socially Sex and Gender Information Value Date Recorded Sex Assigned at Not on file Legal Sex Male 10:17 PM EDT Gender Identity Not on file Sexual Orientation Not on file documented as of this encounter Progress Notes * Shankar Uriostegui MD - 07/14/2025 2:15 PM EDT Images from the original note were not included. Subjective: 07/14/2025 Denis A Brown 65 y.o. male. History of Present Illness The patient is a 65-year-old male here today for a follow-up of bilateral knee pain. He has known moderate bilateral knee arthritis, mostly patellofemoral. He was last seen in December 2024, during which he received bilateral knee injections. He is here today for repeat injections. Bilateral Knee Pain He reports that the cortisone injections have been effective in managing his pain. He is interestedin discussing the possibility of using gel injections as an alternative treatment option. - Onset: Known moderate bilateral knee arthritis. - Location: Bilateral knees, mostly patellofemoral. - Duration: Ongoing since at least December 2024. - Character: Moderate arthritis pain. - Alleviating Factors: Cortisone injections have been effective. - Severity: Moderate pain managed with cortisone injections. Objective: Estimated body mass index is 35.53 kg/m?? as calculated from the following: Height as of 06/06/22: 6' (1.829 m). Weight as of 09/22/22: 262 lb (118.8 kg). PHYSICAL EXAMINATION: General: Well appearing with appropriate affect. No acute distress. Head/neck: Normocephalic. Range of motion of the neck: Easy without discomfort. Skin: Skin warm and dry. Color natural. Neuro: Alert and oriented to person, place, and time. Normal neurosensory response to touch. Pulmonary: Chest expansion appears symmetric and unlabored. Cardiovascular: No signs of peripheral edema. Lymphatic: No signs of lymphangitis. Musculoskeletal: Physical Exam - Musculoskeletal: - Bilateral knees: moderate arthritis, mostly patellofemoral Assessment and Plan: Assessment & Plan 1. Bilateral knee arthritis: - Moderate bilateral knee arthritis, mostly patellofemoral - Informed patient that gel injection tends to last longer than cortisone, with a success rate of around 60% to 70% - Gel injection can provide relief for up to 6 months if effective - Cortisone injections administered today - Request for gel injections will be sent to insurance for approval - Patient will be contacted to schedule the procedure once approved A modifier 25 code in addition to the E/M visit code was justified for this visit. The patient was evaluated and treated for a new or worsening condition. The evaluation and treatment during this visit went beyond what would normally be included in an injection only visit. The patient received appropriate evaluation and treatment for their condition, justifying the E/M level code and additionallyreceived an injection along with other treatments for their condition, justifying the modifier 25 code. A modifier 50 E/M visit code was justified for this visit as the patient received bilateral intraarticular corticosteroid injections. Diagnoses and all orders for this visit: Primary osteoarthritis of both knees - [facility] MEDICATION/PROCEDURE AUTH - Large Joint Injection/Arthrocentesis: bilateral knee Radiology/Laboratory Results: Results Please note that this gathering worker was created using voice recognition software. Any errors are unintentional and may be due to voice recognition gathering worker. The provider informed the patient (or legal circulation sales representative) on the use of the ambient listening artificial intelligence tool, Image Socket to obtain consent to its use. It was explained that this AI tool processes the conversation to generate a clinical note with the expected benefit of improved accuracy with a goal of improving the encounter experience for the patient and provider.?The provider explained that the medical information captured by the AI tool would be protected by applicable privacy laws. The patient was given an opportunity to ask questions and opt out of proceeding with the use of the AI tool. After being informed of such information, the patient (or legal circulation sales representative), and each individual in attendance with the patient, consented to the use of the AI tool. Shankar Uriostegui MD * Jossie Pascual ATC - 07/14/2025 2:15 PM EDTAssociated Order(s): Large Joint Injection/Arthrocentesis: bilateral knee Large Joint Injection/Arthrocentesis: bilateral knee on 07/14/2025 2:15 PM Indications: pain Details: 22 G needle, lateral approach Medications (Right): 40 mg triamcinolone acetonide 40 mg/mL; 1 mL BUPivacaine HCl 0.25 % (2.5 mg/mL) Medications (Left): 40 mg triamcinolone acetonide 40 mg/mL; 1 mL BUPivacaine HCl 0.25 % (2.5 mg/mL) Outcome: tolerated well, no immediate complications Procedure, treatment alternatives, risks and benefits explained, specific risks discussed. Consent was given by the patient. Patient was prepped and draped in the usual sterile fashion. documented in this encounter Plan of Treatment Not on file documented as of this encounter Procedures Procedure Name Priority Date/Time Associated Diagnosis Comments IL ARTHROCENTESIS LARGE JOINT W/O US BILATERAL Routine 07/14/2025 2:15 PM EDT Primary osteoarthritis of both knees documented in this encounter Results * IL ARTHROCENTESIS LARGE JOINT W/O US BILATERAL (07/14/2025 2:15 PM EDT) Narrative [facility] - 07/14/2025 2:15 PM EDT Jossie Pascual ATC 07/15/2025 3:21 PM Large Joint Injection/Arthrocentesis: bilateral knee on 07/14/2025 2:15 PM Indications: pain Details: 22 G needle, lateral approach Medications (Right): 40 mg triamcinolone acetonide 40 mg/mL; 1 mL BUPivacaine HCl 0.25 % (2.5 mg/mL) Medications (Left): 40 mg triamcinolone acetonide 40 mg/mL; 1 mL BUPivacaine HCl 0.25 % (2.5 mg/mL) Outcome: tolerated well, no immediate complications Procedure, treatment alternatives, risks and benefits explained, specific risks discussed. Consent was given by the patient. Patient was prepped and draped in the usual sterile fashion. us Shankar Uriostegui MD PROCEDURE/MINOR SURGICAL ORDERAB LES Final Result [facility] documented in this encounter Visit Diagnoses Diagnosis Primary osteoarthritis of both knees- Primary Primary localized osteoarthrosis, lower leg documented in this encounter Administered Medications Inactive Administered Medications - up to 1 most recent administrations Medication Order MAR Action Action Date Dose Rate Site BUPivacaine HCl (MARCAINE) 0.25 % (2.5 mg/mL) injection 1 mL 1 mL, Intra-articular, ONCE PRN, 1 dose, Starting on Thu07/14/25 at 1415, Until Thu07/14/25 at 1415, Dx: 1. Primary osteoarthritis of both kneesIndications:Primary osteoarthritis of both knees Given 07/14/2025 2:15 PM EDT 1 mL Left Knee BUPivacaine HCl (MARCAINE) 0.25 % (2.5 mg/mL) injection 1 mL 1 mL, Intra-articular, ONCE PRN, 1 dose, Starting on Thu07/14/25 at 1415, Until Thu07/14/25 at 1415, Dx: 1. Primary osteoarthritis of both kneesIndications:Primary osteoarthritis of both knees Given 07/14/2025 2:15 PM EDT 1 mL Right Knee triamcinolone acetonide (KENALOG-40) injection 40 mg 40 mg, Intra-articular, ONCE PRN, 1 dose, Starting on Thu07/14/25 at 1415, Until Thu07/14/25 at 1415, Dx: 1. Primary osteoarthritis of both kneesIndications:Primary osteoarthritis of both knees Given 07/14/2025 2:15 PM EDT 40 mg Left Knee triamcinolone acetonide (KENALOG-40) injection 40 mg 40 mg, Intra-articular, ONCE PRN, 1 dose, Starting on Thu07/14/25 at 1415, Until Thu07/14/25 at 1415, Dx: 1. Primary osteoarthritis of both kneesIndications:Primary osteoarthritis of both knees Given 07/14/2025 2:15 PM EDT 40 mg Right Knee documented in this encounter Orders Nursing Count Last Ordered Date First Orde red Date [facility] MEDICATION/PROCEDURE AUTH 1 06/30 documented in this encounter Care Teams Tennis Director Relationship Specialty Start Date End Date Shankar Rodriguez MD [facility] [place] [phone] PCP - General Family Medicine 09/22/22 documented as of this encounter
--- OUTSIDE RECORDS SUMMARY | 2025-07-24 12:19 | XMS_ITS | Clinical Summary ---
Author Organization [facility] Address [address] [place] [address] Care Team Providers Care Financial Data Analyst Name Role Phone Shankar Rodriguez MD Primary Care Provider [phone] Allergies No known active allergies Medications DULoxetine [...] Discontinued 11/13/2016 Medical Devices Implanted Type Area Internet Media Planner Device Identifier Shelf Expiration Date Model / Serial / Lot Stplln Peristrip Dry Veritas Ech60 6fire - [id number] Implanted:Qty : 1 on 11/14/2016 by Aden Boyce MD at [facility] Implant N/A: Stomach SYNOVIS [id number] 09/09/2019 [id number] / / [id number] Description:1ST & 2ND Stplln Peristrip Dry Veritas Ech60 6fire - [id number] Implanted:Qty : 1 on 11/14/2016 by Aden Boyce MD at [facility] Implant N/A: Stomach SYNOVIS [id number] 09/09/2019 [id number] / / [id number] Description:5TH & 6TH Stplln Peristrip Dry Veritas Ech60 6fire - [id number] Implanted:Qty : 1 on 11/14/2016 by Aden Boyce MD at [facility] Implant N/A: Stomach SYNOVIS [id number] 09/09/2019 [id number] HV / / [id number] Description:3RD & 4TH Stplln Peristrip Dry Veritas Ech60 6fire - [id number] Implanted:Qty : 1 on 11/14/2016 by Aden Boyce MD at [facility] Implant N/A: Stomach SYNOVIS 05/07/2019 [id number] / / [id number] Description:7TH Procedures Procedure Name Priority Date/Time Associated Diagnosis Comments HEMOGLOBIN A1C Routine 11/13/2016 4:41 PM EST from Last 3 Months or Most Recently Relevant to Health Maintenance Results * (ABNORMAL) Hemoglobin A1c (11/13/2016 4:41 PM EST) Hemoglobin A1C 6.20(H) 4.80 - 5.60 % 11/13/2016 5:26 PM EST [facility] Blood Venipuncture / Unknown 11/13/2016 4:41 PM EST 11/13/2016 4:52 PM EST Narrative [facility] - 11/13/2016 5:26 PM EST The [place] [employer] recommends maintenance of Hemoglobin A1C at 7.0% or lower. Goals for Hemoglobin A1C reduction may need to be modified if hypoglycemia is a problem. Aden Boyce MD LAB BLOOD ORDERABLES Final Result [facility]
[address] [id number], from Last 3 Months or Most Recently Relevant to Health Maintenance Insurance MEDICARE A & B Member Subscriber Plan / Payer (Ef fective 2014-Present) Name:Denis Fajadro Member ID:[id number] Relation to Subscriber:Self Name:Denis Fajardo Subscriber ID:[id number] Payer ID:[id number] Group ID:Not on file Type:Not on file Address: [facility] [id number] [address] Advance Directives * Full Code (Latest Code Status on File) Date Activated Date Inactivated Comments 11/14/2016 3:27 PM 11/15/2016 8:02 PM Care Teams Financial Data Analyst Relationship Specialty Start Date End Date Shankar Rodriguez MD [address] [facility] [address] [place] [address] PCP - General Family Medicine 11/13/16
--- OUTSIDE RECORDS SUMMARY | 2025-07-24 12:19 | XMS_ITS | Referral Summary ---
Author Organization [facility] Address [address] [place] [address] [address] [place] [address] Care Team Providers Care Industrial Psychology Teacher Name Role Phone Unavailable Primary Care Provider [...]
--- OUTSIDE RECORDS SUMMARY | 2025-07-24 12:19 | XMS_ITS | Clinical Summary ---
Author Organization [facility] Address [facility] [address] [place] [place] [address] Care Team Providers Care Modeling Analyst Name Role Phone Unavailable Primary Care Provider [...]
--- OUTSIDE RECORDS SUMMARY | 2025-07-24 12:19 | XMS_ITS | Clinical Summary ---
Author Organization [facility] Address [address] [place] [address] Care Team Providers Care Quality Eng Name Role Phone Unavailable Primary Care Provider [...] 2011 UKY-Zoster Vaccines (1 of 2) 2011 HKT-KTPFD-60 Vaccine ( season) 2024 12/10/2021, 12/25/2020, 11/27/2020 [...]
--- OUTSIDE RECORDS SUMMARY | 2025-07-24 12:19 | XMS_ITS | Encounter Summary ---
Author Organization [facility] Address [address] [place] [address] Care Team Providers Care Base Manager Name Role Phone Shankar Rodriguez MD Primary Care Provider [phone] Reason for Visit * Reason Onset Date Comments Knee Pain 07/21/2025 Encounter Details Date Type Department Care Team (Late st Contact Info) Description 07/21/2025 Telephone [facility] [address] [facility] [address] [place] [id number] Shankar Uriostegui MD [address] [place] [address] Knee Pain Social History Tobacco Use Types Packs/Day Years [...] on file documented as of this encounter Miscellaneous Notes * Telephone Encounter - Betty Navarro, Clerical Staff - 07/24/2025 10:28 AM EDT GOOD TO SCHEDULE DUROLANE BILATERAL KNEES. * Telephone Encounter - Snehal Su - 07/21/2025 12:12 PM EDT Okay to schedule. MLD 07/21/2025 * Telephone Encounter - Betty Navarro, Clerical Staff - 07/21/2025 8:06 AM EDTSummary: TRINE BILATERAL KNEES PLEASE REVIEW BENEFITS IN CHART NPC- Case# [id number] documented in this encounter Plan of Treatment Not on file documented as of this encounter Visit Diagnoses Not on filedocumented in this encounter Care Teams Base Manager Relationship Specialty Start Date End Date Shankar Rodriguez MD [facility] [address] [place] [address] PCP - General Family Medicine 09/22/22 documented as of this encounter
--- OUTSIDE RECORDS SUMMARY | 2025-07-24 12:19 | XMS_ITS | Clinical Summary ---
Author Organization [facility] Phone Care Team Providers Care Hospital Insurance Clerk Name Role Phone Shankar Rodriguez MD Primary Care Provider [phone] Allergies No known active allergies Medications albuterol [...] subcutaneously once a week 10/19/20 24 Active Hospital, Clinic, or Other Facility Administered Medication Ordered Dose Route Frequency Start Date End Date Status triamcinolone acetonide (KENALOG-40) injection 40 mgIndications:Primary osteoarthritis of both knees 40 mg IAtc ONCE PRN 07/14/2025 07/14/2025 Ended triamcinolone acetonide (KENALOG-40) injection 40 mgIndications:Primary osteoarthritis of both knees 40 mg IAtc ONCE PRN 07/14/2025 07/14/2025 Ended BUPivacaine HCl (MARCAINE) 0.25 % (2.5 mg/mL) injection 1 mLIndications:Primary osteoarthritis of both knees 1 mL IAtc ONCE PRN 07/14/2025 07/14/2025 Ended BUPivacaine HCl (MARCAINE) 0.25 % (2.5 mg/mL) injection 1 mLIndications:Primary osteoarthritis of both knees 1 mL IAtc ONCE PRN 07/14/2025 07/14/2025 Ended Active Problems Problem Noted Date Diagnosed Date Acute medial meniscal injury of right knee 06/06 Primary osteoarthritis of right knee 06/06/2022 Acute pain of right knee 06/05/2022 Encounters Date Type Department Care Team Description 07/21/2025 Telephone [facility] [address] [place] [address] Shankar Uriostegui MD Knee Pain 07/14/2025 2:15 PM EDT [facility] [place] [address] [address] Shankar Uriostegui MD Primary osteoarthritis of both knees (Primary Dx) from Last 3 Months Surgical History Surgery Date Site/Laterality Comments GASTRIC [...] on patient's age to complete this topic Procedures Procedure Name Priority Date/Time Associated Diagnosis Comments WA ARTHROCENTESIS LARGE JOINT W/O US BILATERAL Routine 07/14/2025 2:15 PM EDT Primary osteoarthritis of both knees from Last 3 Months Results * WA ARTHROCENTESIS LARGE JOINT W/O US BILATERAL (07/14/2025 2:15 PM EDT) Narrative [facility] - 07/14/2025 2:15 PM EDT Jossie Pascual, ATC 07/15/2025 3:21 PM Large Joint Injection/Arthrocentesis: [...] and draped in the usual sterile fashion. Shankar Uriostegui MD PROCEDURE/MINOR SURGICAL ORDERAB LES Final Result [facility] from Last 3 Months Insurance [place]ICARE [place] PART A AND B [place]ICARE [place] A [place] B [place] ANTHEM PPO Care Teams Hospital Insurance Clerk Relationship Specialty Start Date End Date Shankar Rodriguez MD [address] [facility] [address] [place] [address] PCP - General Family Medicine 09/22/22
[2025-07-24 12:43] LABS: Anion Gap 13.9 mEq/L (5-15); Blood Urea Nitrogen 14 mg/dl (9-20); Calcium 9.1 mg/dl (8.4-10.2); Carbon Dioxide 26 mmol/L (22.0-30.0); Chloride 100 mmol/L (98-107); Creatinine,Serum 0.70 mg/dl (0.66-1.25); Estimated Glomerular Filt Rate 114 ml/min (>60); GFR (African American) 137 ML/MIN (>60); Glucose 144 mg/dl (74-100); Potassium 4.9 mmoL/L (3.5-5.1); Sodium 135 mmol/L (136-145)
== END 2025-07-24 23:59 | disposition home or self-care (01) ==
LOC: LAB 11:48
PROVIDERS: PCP Family Medicine; Visit Provider Physician Assistant
DX: I25.10 Atherosclerotic heart disease of native coronary artery without angina pectoris (principal); I10 Essential (primary) hypertension
CPT/HCPCS: 36415; 80048

== ENCOUNTER 2025-09-18 11:49 | Outpatient (CLI) | payer MEDICARE, BC, SELFPAY ==
[2025-09-19 08:27] LABS: PSA, Free 0.39 ng/mL; Testosterone,Total 508 ng/dL (264-916)
== END 2025-09-18 23:59 | disposition home or self-care (01) ==
LOC: LAB 11:51
PROVIDERS: PCP Family Medicine; Visit Provider Urology
DX: N40.0 Benign prostatic hyperplasia without lower urinary tract symptoms (principal); R53.83 Other fatigue
CPT/HCPCS: 36415; 84153; 84154; 84270; 84403

== ENCOUNTER 2025-10-16 11:25 | Outpatient (CLI) | payer MEDICARE, BC, SELFPAY ==
[2025-10-16 12:00] LABS: Hematocrit 52.4 % (42.0-52.0); Hemoglobin 17.3 g/dL (14.1-18.0); Immature Granulocytes % 0.6 %; Mean Corpuscular HGB Conc 33.0 g/dL (31.8-35.4); Mean Corpuscular Hemoglobin 27.7 pg (27.0-31.2); Mean Corpuscular Volume 84.0 fl (80-94); Nucleated Red Blood Cells % 0 %; Platelet Count 322 K/mm3 (142-424); Red Blood Count 6.24 M/mm3 (4.60-6.20); Red Cell Distribution Width-SD 40.8 fL; White Blood Count 9.3 K/mm3 (4.8-10.8)
[2025-10-16 13:31] LABS: Ferritin 135 ng/ml (17.9-464)
--- OUTSIDE RECORDS SUMMARY | 2025-10-16 17:00 | XMS_ITS | Clinical Summary ---
Author Organization [facility] Address [address] [place] [address] Care Team Providers Care Gas Shovel Operator Name Role Phone Shankar Rodriguez MD Primary Care Provider [phone] [phone] Allergies No known active allergies Medications DULoxetine [...] e 09/07/2023 Family and Community Support Answer [place] e Recorded Help with Day-to-Day Activities Not [...] ANNUAL PHYSICAL 05/11/2017 HEPATITIS C SCREENING 05/11/2017 INFLUENZA VACCINE 06/30/2025 TDAP/TD VACCINES (2 - Td or Tdap) 11/09/2027 017 HEMOGLOBIN A1C Discontinued 11/13/2016 Medical Devices Implanted Type Area Oil Agent Device Identifier Shelf Expiration Date Model / Serial / Lot Stplln Peristrip Dry Veritas Ech60 6fire - [id number] Implanted:Qty : 1 on 11/14/2016 by Aden Boyce MD at [facility] Implant N/A: Stomach [employer] [id number] 09/09/2019 [id number] HV / / [id number] Description:1ST & 2ND Stplln Peristrip Dry Veritas Ech60 6fire - [id number] Implanted:Qty : 1 on 11/14/2016 by Aden Boyce MD at [facility] Implant N/A: Stomach [employer]IS [id number] 09/09/2019 [id number] HV / / [id number] Description:5TH & 6TH Stplln Peristrip Dry Veritas Ech60 6fire - [id number] Implanted:Qty : 1 on 11/14/2016 by Aden Boyce MD at [facility] Implant N/A: Stomach [employer]IS [id number] 09/09/2019 [id number] HV / / [id number] Description:3RD & 4TH Stplln Peristrip Dry Veritas Ech60 6fire - [id number] Implanted:Qty : 1 on 11/14/2016 by Aden Boyce MD at [facility] Implant N/A: Stomach [employer]IS 05/07/2019 [id number] HV / / [id number] Description:7TH Procedures Procedure Name Priority Date/Time Associated Diagnosis Comments HEMOGLOBIN A1C Routine 11/13/2016 4:41 PM EST from Last 3 Months or Most Recently Relevant to Health Maintenance Results * (ABNORMAL) Hemoglobin A1c (11/13/2016 4:41 PM EST) Hemoglobin A1C 6.20(H) 4.80 - 5.60 % 11/13/2016 5:26 PM EST [facility] Blood Venipuncture / Unknown 11/13/2016 4:41 PM EST 11/13/2016 4:52 PM EST Narrative [facility] - 11/13/2016 5:26 PM EST The [place] [employer] recommends maintenance of Hemoglobin A1C at 7.0% or lower. Goals for Hemoglobin A1C reduction may need to be modified if hypoglycemia is a problem. Aden Boyce MD LAB BLOOD ORDERABLES Final Result [facility]
[address] [place] [address], [place] [phone] from Last 3 Months or Most Recently Relevant to Health Maintenance Insurance MEDICARE A & B Member Subscriber Plan / Payer (Ef fective 2014-Present) Name:Denis Fajardo Member ID:[id number] Relation to Subscriber:Self Name:Denis Fajardo Subscriber ID:[id number] Payer ID:[id number] Group ID:Not on file Type:Not on file Address: [facility] [id number] [address] Advance Directives * Full Code (Latest Code Status on File) Date Activated Date Inactivated Comments 11/14/2016 3:27 PM 11/15/2016 8:02 PM Care Teams Gas Shovel Operator Relationship Specialty Start Date End Date Shankar Rodriguez MD [address] [facility] [address] [place] [address] PCP - General Family Medicine 11/13/16
[2025-10-16 19:20] LABS: Alanine Aminotransferase 37 U/L (12-78); Albumin Level 4.7 g/dl (3.5-5.0); Albumin/Globulin Ratio 1.7 (1.1-1.8); Alkaline Phosphatase 74 U/L (38-126); Anion Gap 14.2 mEq/L (5-15); Aspartate Amino Transferase 24 U/L (17-59); Bilirubin,Total 0.5 mg/dl (0.2-1.3); Blood Urea Nitrogen 16 mg/dl (9-20); Calcium 9.5 mg/dl (8.4-10.2); Carbon Dioxide 21 mmol/L (22.0-30.0); Chloride 100 mmol/L (98-107); Creatinine,Serum 0.70 mg/dl (0.66-1.25); Estimated Glomerular Filt Rate 114 ml/min (>60); GFR (African American) 137 ML/MIN (>60); Globulin 2.7 g/dL (1.3-3.2); Glucose 346 mg/dl (74-100); Potassium 5.2 mmoL/L (3.5-5.1); Sodium 130 mmol/L (136-145); Total Protein,Serum 7.4 g/dl (6.3-8.2)
== END 2025-10-16 23:59 | disposition home or self-care (01) ==
PROVIDERS: Specialist; PCP Family Medicine; Visit Provider Urology
DX: E83.10 Disorder of iron metabolism, unspecified (principal); R32 Unspecified urinary incontinence; E11.9 Type 2 diabetes mellitus without complications; G25.81 Restless legs syndrome
CPT/HCPCS: 36415; 80053; 82043; 82570; 82728; 85025

== ENCOUNTER 2025-11-09 07:54 | Outpatient (CLI) | payer MEDICARE, BC, SELFPAY ==
--- OUTSIDE RECORDS SUMMARY | 2025-10-20 09:45 | XMS_ITS | Encounter Summary ---
Author Organization [facility] Address [address] [place] [address] Care Team Providers Care Marketing Administrator Name Role Phone Shankar Rodriguez MD Primary Care Provider [phone] [phone] Reason for Referral * Physical Therapy (Routine) - Pending Review Specialty Diagnoses / Procedures Referred By Conteda t Referred To Contact Physical Therapy Diagnoses Osteoarthritis of right shoulder, unspecified osteoarthritis type Shahnaz Carvajal PA [address] [place] [address] Phone: tel: fax: Referral ID Status Reason Start Date Expiration Date V isits Requested Visits Authorized [id number] Pending Review 10/20/2025 10/20/2026 1 1 Question [...] Description 10/20/2025 9:45 AM EST Office Visit [facility] [address] [address] Shahnaz Carvajal PA [address] [place] [address] Right shoulder pain, unspecified chronicity (Primary Dx); [...] dated 10/20/2025 (or most recent visit to [facility]) was reviewed and all pertinent [...] file Social Connections: Unknown (09/07/2023) Received from [facility] Family and Community Support Help with Day-to-Day Activities: Not on file Lonely or Isolated: Not on file Intimate Partner Violence: Unknown (09/07/2023) Received from [facility] Abuse Screen Unsafe at Home or Work/School: Not on file Feels Threatened by Someone?: Not on file Does Anyone Keep You from Contacting Others or Doint Things Outside the Home?: Not on file Physical Sign of Abuse Present: Not on file Housing Stability: Unknown (09/07/2023) Received from [facility] Housing Stability Current Living Arrangements: Not [...] positive Hawkin's: positive Pablo's: positive Speed's: negative Decatur's: positive Cross body adduction: positive Apprehension: negative [...] called to verify the correctpatient, procedure, equipment, fire support specialist and site/side marked as required. [...] Priority Date/Time Associated Diagnosis Comments [place] ARTHROCENTESIS ASPIR&/INJ MAJOR JT/BURSA W/O US Routine 10/20/2025 9:45 AM EST Osteoarthritis of right shoulder, unspecified osteoarthritis type [place] ARTHROCENTESIS LARGE JOINT W/O US BILATERAL Routine 10/20/2025 9:45 AM EST Primary osteoarthritis of both knees documented in this encounter Results * XR SHOULDER RIGHT 4 VIEWS (10/20/2025 9:56 AM EST) Narrative Shahab Barrientos - 10/20/2025 9:56 AM EST Please see physician's note from office encounter for x-ray imaging result us Shankar Uriostegui MD IMG DIAGNOSTIC IMAGING ORDERABLE S Final Result * [place] ARTHROCENTESIS ASPIR&/INJ MAJOR JT/BURSA W/O US (10/20/2025 [...] to verify the correct patient, procedure, equipment, fire support specialist and site/side marked as required. Patient was prepped and draped in the usual sterile fashion. us Shahnaz PEREZ PROCEDURE/MINOR SURGICAL OR DERABLES Final Result Performing Organization Address City/State/[facility] wa Phone Number [facility] * [place] ARTHROCENTESIS LARGE JOINT W/O US BILATERAL (10/20/2025 [...] Knee documented in this encounter Care Teams Marketing Administrator Relationship Specialty Start Date End Date Shankar Rodriguez MD [address] [place] [address] [address] [place] [phone] PCP - General Family Medicine 10/24/22 documented as of this encounter
--- OUTSIDE RECORDS SUMMARY | 2025-10-20 10:00 | XMS_ITS | Encounter Summary ---
Author Organization [facility] Address [address] [place] [address] Care Team Providers Care Right Of Way Manager Name Role Phone Shankar Rodriguez MD Primary Care Provider +1 [phone] Encounter Details Date Type Department Care Team (Latest Contact Info) Description 10/20/2025 10:00 AM EST Ancillary Procedure [facility] [address] [place] [address] Shankar Uriostegui MD [address] [place] [address] Right shoulder pain, unspecified chronicity Social History Tobacco Use Types Packs/Day Years [...] on file documented as of this encounter Plan of Treatment Not on file documented as of this encounter Procedures Procedure Name Priority Date/Time Associated Diagnosis Comments XR SHOULDER RIGHT 4 VIEWS Routine 10/20/2025 9:56 AM EST Right shoulder pain, unspecified chronicity documented in this encounter Results * XR SHOULDER RIGHT 4 VIEWS (10/20/2025 9:56 AM EST) Narrative Shahab Barrientos - 10/20/2025 9:56 AM EST Please see physician's note from office encounter for x-ray imaging result Shankar Uriostegui MD IMG DIAGNOSTIC IMAGING ORDERABLE S Final Result documented in this encounter Visit Diagnoses Diagnosis Right shoulder pain, unspecified chronicity documented in this encounter Care Teams Right Of Way Manager Relationship Specialty Start Date End Date Shankar Rodriguez MD [address] [facility] [phone] PCP - General Family Medicine 09/22/22 documented as of this encounter
--- NOTE | 2025-11-09 | CA_ITS ---
APPROVED REPORT Exam: Pharmacologic Technologist: Renetta Fong Ht: 6 ft 0 in Wt: 256 lbs BSA: 2.37 m2 Medical History Medications: Atorvastatin, Clopidogrel, Pristiq, Duloxetine, Eszopiclone, Furosemide, Horizant ER, Levetiracetine, Lidocaine, Ropinirole, Tadalafilo, Meclizine, Valsartan, Meloxicam, Metformin, Nitroglycerin. Stress Test Details Test: Lexiscan Reason for pharmacologic stress test: physical limitation. HR Resting HR: 74 bpm Max Heart Rate (APMHR): 156.367228 bpm Max HR Achieved: 92 bpm Target HR (85% APMHR): 132.147430 bpm % of APMHR: 58.97 Recovery HR: 84 bpm BP Resting BP: 118.0/73.0 mmHg Max BP: 139.0/79.0 mmHg Recovery BP: 130.0/76.0 mmHg ECG Resting ECG: Sinus Rhythm Clinical Stress Symptoms: Dyspnea, Dizziness Stress ECG Conclusion Lungs CTA prior to test start. Symptoms: Dyspnea/Dizziness. Arrhythmias/Ectopy: None. Less than 0.5mm upsloping ST segment changes. Conclusion: Nondiagnostic ECG/Lexiscan. Electronically signed by : Smita Ramsey MD 11/13/2025 13:21:24
--- OUTSIDE RECORDS SUMMARY | 2025-11-09 07:57 | XMS_ITS | Clinical Summary ---
Author Organization [facility] Address [facility] [address] [place] [place] [address] Care Team Providers Care Technical Training Manager Name Role Phone Unavailable Primary Care Provider [...]
--- OUTSIDE RECORDS SUMMARY | 2025-11-09 07:58 | XMS_ITS | Clinical Summary ---
Author Organization [facility] Address [address] [place] [address] Care Team Providers Care Code Number Stamper Name Role Phone Shankar Rodriguez MD Primary Care Provider +1 [phone] Allergies No known active allergies Medications DULoxetine [...] Discontinued 11/13/2016 Medical Devices Implanted Type Area Photography Teacher Device Identifier Shelf Expiration Date Model / Serial / Lot Stplln Peristrip Dry Veritas Ech60 6fire - [id number] Implanted:Qty : 1 on 11/14/2016 by Aden Boyce MD at [facility] Implant N/A: Stomach [employer]IS [id number] 09/09/2019 [id number] / / [id number] Description:1ST & 2ND Stplln Peristrip Dry Veritas Ech60 6fire - [id number] Implanted:Qty : 1 on 11/14/2016 by Aden Boyce MD at [facility] Implant N/A: Stomach SYNOVIS [id number] 09/09/2019 [id number] / / [id number] Description:5TH & 6TH Stplln Peristrip Dry Veritas Ech60 6fire - [id number] Implanted:Qty : 1 on 11/14/2016 by Aden Boyce MD at [facility] Implant N/A: Stomach SYNOVIS [id number] 09/09/2019 [id number] / / [id number] Description:3RD & 4TH Stplln Peristrip Dry Veritas Ech60 6fire - [id number] Implanted:Qty : 1 on 11/14/2016 by Aden Boyce MD at [facility] Implant N/A: Stomach SYNOVIS 05/07/2019 [id number] / / [id number] Description:7TH Procedures Procedure Name Priority Date/Time Associated Diagnosis Comments HEMOGLOBIN A1C Routine 11/13/2016 4:41 PM EST from Last 3 Months or Most Recently Relevant to Health Maintenance Results * (ABNORMAL) Hemoglobin A1c (11/13/2016 4:41 PM EST) Hemoglobin A1C 6.20(H) 4.80 - 5.60 % 11/13/2016 5:26 PM EST [facility] Blood Venipuncture / Unknown 11/13/2016 4:41 PM EST 11/13/2016 4:52 PM EST Narrative [facility] - 11/13/2016 5:26 PM EST The [place] [employer] recommends maintenance of Hemoglobin A1C at 7.0% or lower. Goals for Hemoglobin A1C reduction may need to be modified if hypoglycemia is a problem. Aden Boyce MD LAB BLOOD ORDERABLES Final Result [facility]
[address] [place] [address], [place] [phone] from Last 3 Months or Most Recently Relevant to Health Maintenance Insurance MEDICARE A & B Member Subscriber Plan / Payer (Ef fective 2014-Present) Name:Denis Fajardo Member ID:[id number] Relation to Subscriber:Self Name:Denis Fajardo Subscriber ID:[id number] Payer ID:[id number] Group ID:Not on file Type:Not on file Address: [facility] [id number] [address] Advance Directives * Full Code (Latest Code Status on File) Date Activated Date Inactivated Comments 11/14/2016 3:27 PM 11/15/2016 8:02 PM Care Teams Code Number Stamper Relationship Specialty Start Date End Date Shankar Rodriguez MD [address] [place] [facility] [address] [place] [address] PCP - General Family Medicine 11/13/16
--- OUTSIDE RECORDS SUMMARY | 2025-11-09 07:58 | XMS_ITS | Clinical Summary ---
Author Organization [facility] Address [address] [place] [address] Care Team Providers Care Condenser Operator Name Role Phone Unavailable Primary Care [...] Date Last Done Comments [facility]-Depression Screening 1961 [facility]-Infant/Child/Adol SDOH Screenings 1961 [facility]- SDOH Screenings 1979 [facility]-Adult SDOH Screenings 1979 CT Colonography 2006 Colonoscopy 2006 FIT-DNA 2006 FIT 2006 FOBT 2006 Sigmoidoscopy 2006 [facility]-Colorectal Cancer Screening 2006 [facility]-Pneumococcal Vaccine: 50 + Years (1 of 1 - PCV) 2011 [facility]-Zoster Vaccines (1 of 2) 2011 [id number]-DQTVB-01 Vaccine ( season) 2025 12/10/2021, 12/25/2020, 11/27/2020 [facility]-Influenza Vaccine (#1) 2025 [...]
--- OUTSIDE RECORDS SUMMARY | 2025-11-09 07:59 | XMS_ITS | Clinical Summary ---
Author Organization [facility] Phone Care Team Providers Care File Clerk Name Role Phone Shankar Rodriguez MD Primary Care Provider +1 [phone] Allergies No known active allergies Medications albuterol [...] Route Frequency Start Date End Date Status hyaluronate sodium, stabilized 3 mLIndications:Primary osteoarthritis of both knees 3 mL IAtc ONCE PRN 10/20/2025 10/20/2025 Ended hyaluronate sodium, stabilized 3 mLIndications:Primary osteoarthritis of both knees 3 mL IAtc ONCE PRN 10/20/2025 10/20/2025 Ended betamethasone acet-betamethasone sodium phos (CELESTONE) injection 1 mgIndications:Osteoarthriti s of right shoulder, unspecified osteoarthritis type 1 mg IAtc ONCE PRN 10/20/2025 10/20/2025 Ended BUPivacaine HCl (MARCAINE) 0.25 % (2.5 mg/mL) injection 1 mLIndications:Osteoarthriti s of right shoulder, unspecified osteoarthritis type 1 mL IAtc ONCE PRN 10/20/2025 10/20/2025 Ended Active Problems Problem Noted Date Diagnosed Date Acute medial meniscal injury of right knee 06/06 Primary osteoarthritis of right knee 06/06/2022 Acute pain of right knee 06/05/2022 Encounters Date Type Department Care Team Description 10/20/2025 10:00 AM EST [facility] [address] [place] [address] Shankar Uriostegui MD Right shoulder pain, unspecified chronicity 10/20/2025 9:45 AM EST Office Visit [facility] [address] [place] [address] Shahnaz Carvajal PA Right shoulder pain, unspecified chronicity (Primary Dx); Primary osteoarthritis of both knees; Osteoarthritis of right shoulder, unspecified osteoarthritis type from Last 3 Months Surgical History Surgery [...] Exam Medicare 1964 Hepatitis C Screening 1979 Cologuard 2006 Colon Cancer Screening 2006 Colonoscopy 2006 FIT 2006 Sigmoidoscopy 2006 Virtual Colonography 2006 Pneumococcal Vaccine 50+ (1 of 1 - PCV) 2011 Zoster (1 of 2) 2011 COVID-19 Vaccine (4 - 2024-2 6 season) 2025 12/10/2021, 12/25/2020, 11/27/2020 Influenza Vaccine (#1) 2025 10/19/2023 DTaP/TDaP/Td (3 - Td or Tdap) 10/15/2034, 11/09/2017 Hepatitis B Vaccine Completed 03/12/1993, 10/16/1992, 09/06/1992 Meningococcal B Vaccine Aged Out No l onger eligible based on patient's age to complete this topic Procedures Procedure Name Priority Date/Time Associated Diagnosis Comments XR SHOULDER RIGHT 4 VIEWS Routine 10/20/2025 9:56 AM EST Right shoulder pain, unspecified chronicity [place] ARTHROCENTESIS ASPIR&/INJ MAJOR JT/BURSA W/O US Routine 10/20/2025 9:45 AM EST Osteoarthritis of right shoulder, unspecified osteoarthritis type [place] ARTHROCENTESIS LARGE JOINT W/O US BILATERAL Routine 10/20/2025 9:45 AM EST Primary osteoarthritis of both knees from Last 3 Months Results * XR SHOULDER RIGHT 4 VIEWS (10/20/2025 9:56 AM EST) Narrative Genericuser, Shahab - 10/20/2025 9:56 AM EST Please see physician's note from office encounter for x-ray imaging result us Shankar Uriostegui MD IM DIAGNOSTIC IMAGING ORDERABLE S Final Result * [place] ARTHROCENTESIS ASPIR&/INJ MAJOR JT/BURSA W/O US (10/20/2025 9:45 AM EST) Narrative [facility] - 10/20/2025 9:45 AM EST Jossie Pascual, [place] 10/20/2025 10:52 AM Large Joint Injection/Arthrocentesis on [...] to verify the correct patient, procedure, equipment, manager product support and site/side marked as required. Patient was prepped and draped in the usual sterile fashion. Shahnaz PEREZ PROCEDURE/MINOR SURGICAL OR DERABLES Final Result Performing Organization Address [facility] de Phone Number [facility] * [place] ARTHROCENTESIS LARGE JOINT W/O US BILATERAL (10/20/2025 [...] OR DERABLES Final Result Performing Organization Address [facility] Phone Number [facility] from Last 3 Months Insurance ANTHEM MEDICARE [place] PART A AND B ANTHEM ANTHEM O Care Teams File Clerk Relationship Specialty Start Date End Date Shankar Rodriguez MD [facility] [address] [place] [phone] PCP - General Family Medicine 09/22/22
--- OUTSIDE RECORDS SUMMARY | 2025-11-09 07:59 | XMS_ITS ---
Author Organization Unknown ENCOUNTERS Encounter Performer Location Date Diagnosis Diagnosis Status Emergency Sridhar [facility] [address] [place] [address] [id number] ELVA Pre Admit Meghna Ramos [facility] [address] [place] [address] [id number] Emergency [facility] [address] [facility] [address] [place] [address] [id number] ELVA Pre Admit [facility] [address] [place] [address] [id number] Pre Admit [facility] [address] [place] [address] [id number] Emergency [facility] [address] [facility] [address] [place] [address] [id number] ELVA Pre Admit [facility] [address] [place] [address] [id number] Emergency [facility] [address] [facility] [address] [place] [address] [id number] ELVA Emergency [facility] [address] [facility] [address] [place] [address] [id number] ELVA Emergency [facility] [address] [facility] [address] [place] [address] [id number] ELVA *Note: Encounters from your own facility or health system may be excluded. Allergies, Adverse Reactions, Alerts Allergen Type Severity Identification Date acetaminophen drug allergy 2 [id number] rosuvastatin drug allergy 4 [id number] Medications Name Date Quantity Days Supplied GPI Number
--- NOTE | 2025-11-09 08:00 | NM_ITS ---
APPROVED REPORT Exam: Nuclear Stress Test Indication: cp..soa Patient Location: Outpatient Stress Tech: Renetta Tobias [place] Tech:JIGNA Aguayo RT(R)(N) Ht: 6 ft 0 in Wt: 256 lbs HR: 72 bpm BP: 118/73 mmHg BSA: 2.37 m2 TID: 1.43 History: cp..soa Procedure: Patient received 0.4 mg of intravenous Lexiscan, resting heart rate 72 bpm, resting blood pressure 118/73 mmHg, with Lexiscan maximum heart rate achieved was 91 bpm which is 85 % of the maximum predicted heart rate and blood pressure was 119/64 mmHg. With Lexiscan, patient denied any complaint of chest pain. Cardiac Stress and Resting SPECT Images: Cardiac Stress and Resting SPECT images were obtained using technetium 99m Myoview 32.9 mCi stress and 10.46 mCi at rest. Resting and stress imaging in supine and prone positions demonstrate a large sized, moderate, predominantly fixed perfusion defect in the inferior LV wall. There is a small region of reversibility towards the mid inferior LV wall. There is also increase in transient ischemic dilatation ratio (TID 1.43) which may be suggestive of possible multivessel disease or balanced ischemia. Gated imaging demonstrates low normal global LV systolic function. LVEF is calculated at 51%. Conclusion: Large sized, moderate, predominantly fixed perfusion defect in the inferior LV wall. There is a small region of reversibility towards the mid inferior LV wall. There is also increase in transient ischemic dilatation ratio (TID 1.43) which may be suggestive of possible multivessel disease or balanced ischemia. Gated imaging demonstrates low normal global LV systolic function. LVEF is calculated at 51%. Electronically signed by : Smita Ramsey MD 11/13/2025 13:14:19
--- OUTSIDE RECORDS SUMMARY | 2025-11-09 08:00 | XMS_ITS | Encounter Summary ---
Author Organization [facility] Address [address] [place] [address] Care Team Providers Care Maintenance Repairer Name Role Phone Shankar Rodriguez MD Primary Care Provider +1 [phone] Reason for Visit * Reason Onset Date Comments Knee Pain 07/21/2025 Encounter Details Date Type Department Care Team (Late st Contact Info) Description 07/21/2025 Telephone [facility] [address] [facility] [address] [place] [address] Shankar Uriostegui MD [address] [place] [address] Knee Pain Social History Tobacco Use Types [...] encounter Miscellaneous Notes * Telephone Encounter - Rosa Sales, Clerical Staff - 10/19/2025 10:45 AM EST noted * Telephone Encounter - Betty Navarro, Clerical Staff - 10/19/2025 10:39 AM EST GOOD TO SCHEDULE * Telephone Encounter - Snehal Su - 10/19/2025 10:06 AM EST Yes, okay to schedule for bilateral Durolane. MLD 10/19/2025 * Telephone Encounter - Betty Navarro, Clerical Staff - 10/19/2025 9:50 AM EST IS PATIENT STILL GOOD TO BE SCHEDULED? * Telephone Encounter - Rosa Sales Clerical Staff - 10/19/2025 9:45 AM EST Pt is on the schedule tomorrow for his gel inj. Is this auth still good? * Telephone Encounter - Rosa Sales Clerical Staff - 07/25/2025 8:15 AM EDT LVM trying to schedule * Telephone Encounter - Betty Navarro Clerical Staff - 07/24/2025 10:28 AM EDT GOOD TO SCHEDULE DUROLANE BILATERAL KNEES. * Telephone Encounter - Snehal Su - 07/21/2025 12:12 PM EDT Okay to schedule. MLD 07/21/2025 * Telephone Encounter - Betty Navarro Clerical Staff - 07/21/2025 8:06 AM EDTSummary: DUROLANE BILATERAL KNEES PLEASE REVIEW BENEFITS IN CHART NPC- Case# [id number] documented in this encounter Plan of Treatment Not on file documented as of this encounter Visit Diagnoses Not on filedocumented in this encounter Care Teams Maintenance Repairer Relationship Specialty Start Date End Date Shankar Rodriguez MD [facility] [address] [place] [address] PCP - General Family Medicine 09/22/22 documented as of this encounter
[2025-11-09 09:10] VITALS: BP 118/73; PULSE 74; RESP 16
[2025-11-09] MEDS: ISOTOPE MYOVIEW (PER STUDY) 1 DOSE IV (10:39)
[2025-11-09] MEDS: SODIUM CHLORIDE 0.9% 10ML SYR (RAD ONLY) 10 ML IV ×2 (10:40)
--- NOTE | 2025-11-09 11:00 | CA_ITS ---
APPROVED REPORT EXAM: Comprehensive 2D, Doppler, and color-flow Echocardiogram Corrosion Technician: Deisy Chandra RVT Ht: 6 ft 0 in Wt: 256lbs BSA: 2.37 BP: 142/91 mmHg Indications: CHEST PAIN 2D Dimensions IVSd 1.33 cm M: 0.6-1.2 LVEF (Visual) 55.00 % PWd 0.78 cm M: 0.6 - 1.2 LA Volume 58.90 mL LVDd 3.45 cm M: 4.2 - 5.9 LA Volume Index 24.85 mL/m2 (M/F) 16-34 LVDs 2.49 cm M: 2.5 - 4.0 M-Mode Dimensions LA Diam 4.78 cm (1.9-4.0) TAPSE 2.61 (<1.7) LV Diastology E Decel Time 230 (160-240 msec) E/A Ratio 0.9 Aortic Valve MARYSE Index 1.16 cm2/m2 AoV Peak Lauro. 133.0 (50-130 cm/s) AO Peak GR. 7.10 mmHg AO Mean GR. 3.80 (<5 mmHg) AO VTI 26.0 (18-25 cm) MARYSE (VTI) 2.81 (2.5-4.5 cm2) Mitral Valve MV E Max Lauro. 78.0 (40-130 cm/s) MV A Velocity 85.0 (40-130 cm/s) E/A Ratio 0.92 MV PHT 67.0 ms Pulmonary Valve PV Peak Velocity 74.0 (50-150 cm/s) Tricuspid Valve TR P. Velocity 253.00 cm/s RAP Estimate 8.00 mmHg RVSP 33.60 mmHg Left Ventricle The left ventricle is normal size. Left ventricular systolic function is normal. The left ventricular ejection fraction is within the normal range. There is increased left ventricular wall thickness. There is normal LV segmental wall motion. The left ventricular diastolic function is normal. LVEF is 55% Right Ventricle The right ventricle is mildly dilated. The right ventricular systolic function is normal. Atria The left atrium size is normal. The right atrium size is normal. There is no color Doppler evidence of interatrial shunt. Aortic Valve The aortic valve opens well. There is no hemodynamically significant aortic valvular stenosis. No aortic regurgitation is present. Mitral Valve The mitral valve is normal in structure. No evidence of mitral valve stenosis. Trace mitral regurgitation is present. Tricuspid Valve The tricuspid valve leaflets are thin and pliable. Mild tricuspid regurgitation. RVSP is 25-30 mmHg. Pulmonic Valve The pulmonary valve is grossly normal in structure. Trace pulmonic valve regurgitation is present. Great Vessels The aortic root is normal in size. IVC is normal in size and collapses >50% with inspiration. Pericardium There is a small-sized, anterior pericardial effusion along the RV free wall. The largest pocket measures 0.3 cm in diastole. No echo indications of tamponade. Other Information Study Quality: Fair Conclusion Normal biventricular systolic function. Mild RV dilation. Mild TR. Small-sized, anterior pericardial effusion along the RV free wall. The largest pocket measures 0.3 cm in diastole. No echo indications of tamponade. Electronically signed by : Smita Ramsey MD 11/19/2025 15:56:05
== END 2025-11-09 23:59 | disposition home or self-care (01) ==
LOC: RAD 07:55
PROVIDERS: PCP Family Medicine; Visit Provider Physician Assistant
DX: I07.1 Rheumatic tricuspid insufficiency (principal); I31.39 Other pericardial effusion (noninflammatory); I25.118 Atherosclerotic heart disease of native coronary artery with other forms of angina pectoris; R94.39 Abnormal result of other cardiovascular function study
CPT/HCPCS: 78452; 93017; 93018; 93306; A9502; J2785

== ENCOUNTER 2025-11-17 07:54 | Day surgery (SDC) | payer MEDICARE, BC, SELFPAY ==
[2025-11-17] VITALS (15 sets, daily range): BP systolic 106–144; BP diastolic 61–87; PULSE 67–654; RESP 16–20; TEMP 36.6; O2SAT 93–98; BMI 33.7
--- NOTE | 2025-11-17 07:09 | IR_ITS ---
APPROVED REPORT Patient Location: Outpatient [place] Culler: JIGNA Martin RT (R) PROCEDURES Left heart catheterization Left ventriculogram Selective coronary angiogram Drug-eluting stent deployment to the proximal and mid dominant right coronary Intravascular ultrasound to the right coronary INDICATION High risk abnormal Myoview, Angina pectoris, Complex coronary intervention Informed consent was obtained prior to the procedure. COMPLICATIONS NONE Estimated Blood Loss: LESS THAN 10 ML TECHNIQUE One percent lidocaine used to anesthetize the right anterior aspect of the wrist. The right radial artery was accessed via the Seldinger technique. A 6 Syriac sheath was placed in the right radial artery. 2.5 mg of Verapamil, 800 mcg of nitroglycerin, 1mg Lidocaine and 5000 U Heparin were given through the arterial sheath. The JL3 catheter was also used to perform left heart catheterization, left ventriculogram and selective coronary angiogram. At the end the diagnostic angiogram therapeutic heparin was administered giving a therapeutic ACT and the guide catheter was placed in the right coronary followed by Choice PT extra-support wire placed distally. 3.5 x 38 mm Ignacio frontier stent was placed in the midportion at 24 lexii reducing the stenosis. There was an anatomical defect proximal to the stent therefore a 4 mm x 12 mm Ignacio frontier stent was then placed proximal to the stent yet still overlapping at 24 lexii. There appeared to be a geographical miss and the defect persisted. At this point intravascular ultrasound probe was advanced which demonstrated there was a geographical mass in the area of interest. Because of this an additional 4 mm x 12 mm Ignacio frontier stent was then placed this time getting the area of interest and deployed at 24 lexii. RAÚL-3 flow was present before and after the procedure. At the end the procedure the apparatus was removed the sheath was removed and hemostasis was achieved using TR banding patient was transferred to the postop boarding in stable condition ANGIOGRAPHIC RESULTS The left main artery Normal The left anterior descending artery Has a proximal to mid vessel stent which is widely patent free of in-stent restenosis with excellent proximal distal transitioning. The remaining LAD is widely patent The circumflex artery Is nondominant yet still large with diffuse mid vessel 10 to 20% luminal regularities The right coronary artery Massively large and dominant with a proximal to mid vessel 70% stenosis along a tortuous bend The LOZADA ventriculogram reveals Preserved 55% The left ventricular end-diastolic pressure 20 mmHg IMPRESSION Widely patent proximal to mid LAD stent as described above Severe disease in the right coronary artery as described above with successful stenting reducing the lesion to 0% with 3 contiguous drug-eluting stents Successful intravascular ultrasound the right coronary Preserved ejection fraction with mildly elevated LVEDP PLAN 1. Dual antiplatelet therapy 2. Cardiac rehabilitation 3. Avoidance of tobacco products 4. Risk factor modification 5. LDL less than 55 to be achieved with high intensity statin Electronically signed by : Hugh Amado MD 11/17/2025 10:13:34
[2025-11-17 08:27] LABS: Hematocrit 47.3 % (42.0-52.0); Hemoglobin 15.5 g/dL (14.1-18.0); Immature Granulocytes % 0.4 %; Mean Corpuscular HGB Conc 32.8 g/dL (31.8-35.4); Mean Corpuscular Hemoglobin 27.9 pg (27.0-31.2); Mean Corpuscular Volume 85.2 fl (80-94); Nucleated Red Blood Cells % 0 %; Platelet Count 302 K/mm3 (142-424); Red Blood Count 5.55 M/mm3 (4.60-6.20); Red Cell Distribution Width-SD 42.5 fL; White Blood Count 9.0 K/mm3 (4.8-10.8)
[2025-11-17 08:32] LABS: Chloride 107 mmol/L (98-107); Potassium 4.3 mmoL/L (3.5-5.1); Sodium 137 mmol/L (136-145)
[2025-11-17 08:35] LABS: Anion Gap 10.3 mEq/L (5-15); Blood Urea Nitrogen 21 mg/dl (9-20); Calcium 9.3 mg/dl (8.4-10.2); Carbon Dioxide 24 mmol/L (22.0-30.0); Creatinine Clearance Estimated 119 mL/min (50-200); Creatinine,Serum 0.80 mg/dl (0.66-1.25); Estimated Glomerular Filt Rate 97 ml/min (>60); GFR (African American) 118 ML/MIN (>60); Glucose 110 mg/dl (74-100)
[2025-11-17] MEDS: HEPARIN 1,000 UNITS/500ML NS (CATH LAB) 3000 UNIT IV (09:14)
[2025-11-17] MEDS: HEPARIN 1,000 UNITS/ML 10ML VIAL (CATH LAB) 5000 UNIT IV (09:14)
[2025-11-17] MEDS: LIDOCAINE 1% 10ML MDV 10 ML IJ (09:15)
[2025-11-17] MEDS: NITROGLYCERIN 800MCG/8ML SYR (CATH LAB) 800 MCG IA (09:15)
[2025-11-17] MEDS: VERAPAMIL 2.5MG/ML 2ML VIAL 2.5 MG IV (09:15)
[2025-11-17] MEDS: 0.9 % SODIUM CHLORIDE 500 ML 25 ML IV (09:15)
[2025-11-17] MEDS: MIDAZOLAM HCL 1MG/ML 5ML VIAL 1 MG IV (09:16)
[2025-11-17] MEDS: FENTANYL 100MCG/2ML VIAL 50 MCG IV (09:16)
[2025-11-17] MEDS: ASPIRIN 325MG TABLET 325 MG PO (10:06)
[2025-11-17 13:58] LABS: CATHL Activated Clotting Time 252 SEC (74-125)
--- NOTE | 2025-11-17 14:20 | PC.NURSE ---
PT HAS ATE LUNCH. CATH VSS. AMBULATED IN THE ROOM. DRESSING TO RIGHT RADIAL CATH SITE C/D/I. DISCHARGE AND MEDICATION INSTRUCTIONS GIVEN. PT WAS INSTRUCTED TO HAVE OUTPATIENT LAB WORK TUESDAY 11/20. FOLLOW UP WITH CARDIOLOGY 11/29.
== END 2025-11-17 14:23 | disposition home or self-care (01) ==
PROVIDERS: PCP Family Medicine; Visit Provider Internal Medicine
PROC: 4A023N7 Measurement of Cardiac Sampling and Pressure, Left Heart, Percutaneous Approach (ICD-10-PCS; CPT 93452; principal; 2025-11-17 07:30)
DX: I25.118 Atherosclerotic heart disease of native coronary artery with other forms of angina pectoris (principal); R94.39 Abnormal result of other cardiovascular function study; E11.9 Type 2 diabetes mellitus without complications; I10 Essential (primary) hypertension; E78.2 Mixed hyperlipidemia; E66.9 Obesity, unspecified; Z68.33 Body mass index [BMI] 33.0-33.9, adult; G25.81 Restless legs syndrome; G47.33 Obstructive sleep apnea (adult) (pediatric); Z98.84 Bariatric surgery status; Z87.891 Personal history of nicotine dependence; Z79.82 Long term (current) use of aspirin; Z79.02 Long term (current) use of antithrombotics/antiplatelets; Z79.84 Long term (current) use of oral hypoglycemic drugs; Z79.890 Hormone replacement therapy; Z79.899 Other long term (current) drug therapy; Z88.8 Allergy status to other drugs, medicaments and biological substances; Z95.5 Presence of coronary angioplasty implant and graft
CPT/HCPCS: 80048; 85025; 85347; 92928; 92978; 93458; 99152; 99153; C1725; C1760; C1769; C1874; C1887; C9600; J1200; J1644; J3010; J7040; Q9967

== ENCOUNTER 2025-11-20 12:38 | Outpatient (CLI) | payer MEDICARE, BC, SELFPAY ==
--- OUTSIDE RECORDS SUMMARY | 2025-10-20 09:45 | XMS_ITS | Encounter Summary ---
Author Organization [facility] Address [address] [place] [address] Care Team Providers Care Director Meetings Name Role Phone Shankar Rodriguez MD Primary Care Provider [phone] [phone] Reason for Referral * Physical Therapy (Routine) - Pending Review Specialty Diagnoses / Procedures Referred By Conteda t Referred To Contact Physical Therapy Diagnoses Osteoarthritis of right shoulder, unspecified osteoarthritis type Shahnaz Carvajal PA [address] [place] [address] Phone: tel: fax: Referral ID Status Reason Start Date Expiration Date V isits Requested Visits Authorized [id number] Pending Review 10/20/2025 10/20/2026 1 1 Question [...] 10/20/2025 9:45 AM EST Office Visit [facility] [address] [address] Shahnaz Carvajal PA [address] [place] [address] Right shoulder pain, unspecified chronicity (Primary Dx); [...] dated 10/20/2025 (or most recent visit to [facility]) was reviewed and all pertinent positives were [...] file Social Connections: Unknown (09/07/2023) Received from [facility] Family and Community Support Help with Day-to-Day Activities: Not on file Lonely or Isolated: Not on file Intimate Partner Violence: Unknown (09/07/2023) Received from [facility] Abuse Screen Unsafe at Home or Work/School: Not on file Feels Threatened by Someone?: Not on file Does Anyone Keep You from Contacting Others or Doint Things Outside the Home?: Not on file Physical Sign of Abuse Present: Not on file Housing Stability: Unknown (09/07/2023) Received from [facility] Housing Stability Current Living Arrangements: Not on [...] positive Hawkin's: positive Pablo's: positive Speed's: negative Cascade's: positive Cross body adduction: positive Apprehension: negative [...] called to verify the correctpatient, procedure, equipment, sales support advisor and site/side marked as required. Patient was prepped and draped in the usual sterile fashion. documented in this encounter Plan of Treatment Upcoming Encounters Date Type Department Care Team (Late st Contact Info) Description 11/21/2025 5:30 PM EST Ancillary Procedure [facility] [address] [address] Scheduled Referrals Name Type Priority Associated Diagnoses Orde r Schedule AMB REFERRAL TO PHYSICAL THERAPY Outpatient Referral Routine Osteoarthritis of right shoulder, unspecified osteoarthritis type Ordered: 10/20/2025 documented as of this encounter Procedures Procedure Name Priority Date/Time Associated Diagnosis Comments [place] ARTHROCENTESIS ASPIR&/INJ MAJOR JT/BURSA W/O US Routine 10/20/2025 9:45 AM EST Osteoarthritis of right shoulder, unspecified osteoarthritis type [place] ARTHROCENTESIS LARGE JOINT W/O US BILATERAL Routine 10/20/2025 9:45 AM EST Primary osteoarthritis of both knees documented in this encounter Results * XR SHOULDER RIGHT 4 VIEWS (10/20/2025 9:56 AM EST) Narrative Shahab Barrientos - 10/20/2025 9:56 AM EST Please see physician's note from office encounter for x-ray imaging result Shankar Uriostegui MD IMG DIAGNOSTIC IMAGING ORDERABLE S Final Result * [place] ARTHROCENTESIS ASPIR&/INJ MAJOR JT/BURSA W/O US (10/20/2025 9:45 AM EST) Narrative [facility] - 10/20/2025 9:45 AM EST Jossie Pascual ATC 10/20/2025 10:52 AM Large Joint Injection/Arthrocentesis [...] to verify the correct patient, procedure, equipment, sales support advisor and site/side marked as required. Patient was prepped and draped in the usual sterile fashion. Shahnaz PEREZ PROCEDURE/MINOR SURGICAL OR DERABLES Final Result [facility] * [place] ARTHROCENTESIS LARGE JOINT W/O US BILATERAL (10/20/2025 9:45 AM EST) Narrative [facility] - 10/20/2025 9:45 AM EST Jossie Pascual, [place] 10/20/2025 10:52 AM Large Joint Injection/Arthrocentesis: bilateral [...] Knee documented in this encounter Care Teams Director Meetings Relationship Specialty Start Date End Date Shankar Rodriguez MD [address] [facility] [address] [place] [phone] PCP - General Family Medicine 09/22/22 documented as of this encounter
--- OUTSIDE RECORDS SUMMARY | 2025-10-20 10:00 | XMS_ITS | Encounter Summary ---
Author Organization [facility] Address [address] [place] [address] Care Team Providers Care Coal Handler Name Role Phone Shankar Rodriguez MD Primary Care Provider +1 [phone] Encounter Details Date Type Department Care Team (Latest Contact Info) Description 10/20/2025 10:00 AM EST Ancillary Procedure [facility] [address] [address] Shankar Uriostegui MD [address] [place] [address] Right shoulder pain, unspecified chronicity Social History [...] as of this encounter Plan of Treatment Upcoming Encounters Date Type Department Care Team (Late st Contact Info) Description 11/21/2025 5:30 PM EST Ancillary Procedure [facility] [address] [facility] [address] [place], [place] [id number] documented as of this encounter Procedures Procedure Name Priority Date/Time Associated Diagnosis Comments XR SHOULDER RIGHT 4 VIEWS Routine 10/20/2025 9:56 AM EST Right shoulder pain, unspecified chronicity documented in this encounter Results * XR SHOULDER RIGHT 4 VIEWS (10/20/2025 9:56 AM EST) Narrative Faridauser, Audit - 10/20/2025 9:56 AM EST Please see physician's note from office encounter for x-ray imaging result Shankar Uriostegui MD IMG DIAGNOSTIC IMAGING ORDERABLE S Final Result documented in this encounter Visit Diagnoses Diagnosis Right shoulder pain, unspecified chronicity documented in this encounter Care Teams Coal Handler Relationship Specialty Start Date End Date Shankar Rodriguez MD [facility] [place] [address] [place] [phone] PCP - General Family Medicine 09/22/22 documented as of this encounter
--- OUTSIDE RECORDS SUMMARY | 2025-11-20 12:41 | XMS_ITS | Clinical Summary ---
Author Organization [facility] Phone Care Team Providers Care Seat Installer Name Role Phone Shankar Rodriguez MD Primary Care Provider +1 [phone] Allergies No known active allergies Medications albuterol [...] Description 10/20/2025 10:00 AM EST Ancillary Procedure [facility] [address] [address] Shankar Uriostegui MD Right shoulder pain, unspecified chronicity 10/20/2025 9:45 AM EST Office Visit [facility] [address] [address] Shahnaz Carvajal PA Right shoulder pain, unspecified [...] 06/06/2022 8:54 AM EDT Plan of Treatment Upcoming Encounters Date Type Department Care Team (Late st Contact Info) Description 11/21/2025 5:30 PM EST Ancillary Procedure [facility] [address] [facility] [address] [place] [id number] Health Maintenance Due Date Last Done Comments Wellness Exam Medicare 1963 Hepatitis C Screening 1979 Cologuard 2006 Colon Cancer Screening 2006 Colonoscopy 2006 FIT 2006 Sigmoidoscopy 2006 Virtual Colonography 2006 Pneumococcal Vaccine 50+ (1 of 1 - PCV) 2011 Zoster (1 of 2) 2011 COVID-19 Vaccine (2024-2 6 season) 2025 12/10/2021, 12/25/2020, 11/27/2020 Influenza [...] AM EST Right shoulder pain, unspecified chronicity [place] ARTHROCENTESIS ASPIR&/INJ MAJOR JT/BURSA W/O US Routine 10/20/2025 9:45 AM EST Osteoarthritis of right shoulder, unspecified osteoarthritis type [place] ARTHROCENTESIS LARGE JOINT W/O US BILATERAL Routine 10/20/2025 9:45 AM EST Primary osteoarthritis of both knees from Last 3 Months Results * XR SHOULDER RIGHT 4 VIEWS (10/20/2025 9:56 AM EST) Narrative Shahab Barrientos - 10/20/2025 9:56 AM EST Please see physician's note from office encounter for x-ray imaging result us Shankar Uriostegui MD IMG DIAGNOSTIC IMAGING ORDERABLE S Final Result * [place] ARTHROCENTESIS ASPIR&/INJ MAJOR JT/BURSA W/O US (10/20/2025 [...] to verify the correct patient, procedure, equipment, support architect and site/side marked as required. Patient was prepped and draped in the usual sterile fashion. us Shahnaz PEREZ PROCEDURE/MINOR SURGICAL OR DERABLES Final Result Performing Organization Address [facility] de Phone Number [facility] * [place] ARTHROCENTESIS LARGE JOINT W/O US BILATERAL (10/20/2025 [...] OR DERABLES Final Result Performing Organization Address [facility] Phone Number [facility] from Last 3 Months Insurance MEDICARE [place] PART A AND B AN[place] Member Subscriber Plan / Payer (Ef fective 2021-Present) Name:Denis Fajardo Relation to Subscriber:Self Name:Denis Fajardo Payer ID:[id number] (NAIC) Group ID:Not on file Type:Not on file Address: [address] [place] [id number] ANTHEM PPO Care Teams Seat Installer Relationship Specialty Start Date End Date Shankar Rodriguez MD [address] [facility] [address] [place] [address] PCP - General Family Medicine 09/22/22
--- OUTSIDE RECORDS SUMMARY | 2025-11-20 12:41 | XMS_ITS | Clinical Summary ---
Author Organization [facility] Address [address] [place] [address] Care Team Providers Care Flooring Installer Name Role Phone Shankar Rodriguez MD Primary Care Provider +1 -[phone] Allergies No known active allergies Medications DULoxetine [...] Discontinued 11/13/2016 Medical Devices Implanted Type Area Tattoo Identifier Device Identifier Shelf Expiration Date Model / Serial / Lot Stplln Peristrip Dry Veritas Ech60 6fire - [id number] Implanted:Qty : 1 on 11/14/2016 by Aden Boyce MD at [facility] Implant N/A: Stomach SYNOVIS [id number] 09/09/2019 [id number] HV / / [id number] Description:1ST & 2ND Stplln Peristrip Dry Veritas Ech60 6fire - [id number] Implanted:Qty : 1 on 11/14/2016 by Aden Boyce MD at [facility] Implant N/A: Stomach SYNOVIS [id number] 09/09/2019 [id number] HV / / [id number] Description:5TH & 6TH Stplln Peristrip Dry Veritas Ech60 6fire - [id number] Implanted:Qty : 1 on 11/14/2016 by Aden Boyce MD at [facility] Implant N/A: Stomach SYNOVIS [id number] 09/09/2019 [id number] HV / / [id number] Description:3RD & 4TH Stplln Peristrip Dry Veritas Ech60 6fire - [id number] Implanted:Qty : 1 on 11/14/2016 by Aden Boyce MD at [facility] Implant N/A: Stomach SYNOVIS 05/07/2019 [id number] HV / / [id number] Description:7TH Procedures Procedure Name Priority Date/Time Associated [...] LABORATORY - 11/13/2016 5:26 PM EST The [place] [employer] recommends maintenance of Hemoglobin A1C at 7.0% or lower. Goals for Hemoglobin A1C reduction may need to be modified if hypoglycemia is a problem. Aden Boyce MD LAB BLOOD ORDERABLES Final Result [facility]
[address] [place] [address], [place] [phone] from Last 3 Months or Most Recently Relevant to Health Maintenance Insurance MEDICARE A & B Member Subscriber Plan / Payer (Ef fective 2014-Present) Name:Denis Fajardo Member ID:[id number] Relation to Subscriber:Self Name:Denis Fajardo Subscriber ID:[id number] Payer ID:[id number] Group ID:Not on file Type:Not on file Address: [facility] [id number] [address] Advance Directives * Full Code (Latest Code Status on File) Date Activated Date Inactivated Comments 11/14/2016 3:27 PM 11/15/2016 8:02 PM Care Teams Flooring Installer Relationship Specialty Start Date End Date Shankar Rodriguez MD [address] [facility] [address] [place] [address] PCP - General Family Medicine 11/13/16
--- OUTSIDE RECORDS SUMMARY | 2025-11-20 12:41 | XMS_ITS | Clinical Summary ---
Author Organization [facility] Address [address] [place] [address] Care Team Providers Care Ice Cream Maker Name Role Phone Unavailable Primary Care Provider [...] 2011 [facility]-Zoster Vaccines (1 of 2) 2011 IPS-HGOXG-07 Vaccine ( - season) 2025 12/10/2021, 12/25/2020, 11/27/2020 [facility]-Influenza Vaccine (#1) 2025 [facility]-DTaP,Tdap,and Td Vaccine s (2 - Td or Tdap) 11/09/2027 11/09/2017 [facility]-RSV Vaccine: 60+ Years o r (1 - 1-dose 75+ series) 2036 HPV Vaccines (No Doses Required) Completed [facility]-HIB Vaccines Aged Out No longer e [...]
--- OUTSIDE RECORDS SUMMARY | 2025-11-20 12:41 | XMS_ITS | Encounter Summary ---
Author Organization [facility] Address [address] [place] [address] Care Team Providers Care Banquet Set Up Person Name Role Phone Shankar Rodriguez MD Primary Care Provider [phone] -[phone] Reason for Visit * Reason Onset Date Comments Knee Pain 07/21/2025 Encounter Details Date Type Department Care Team (Late st Contact Info) Description 07/21/2025 Telephone [facility] [address] [facility] [address] [place] [address] Shankar Uriostegui MD [address] [place] [address] Knee Pain Social History Tobacco Use Types [...] PLEASE REVIEW BENEFITS IN CHART NPC- Case# [id number] documented in this encounter Plan of Treatment Upcoming Encounters Date Type Department Care Team (Late st Contact Info) Description 11/21/2025 5:30 PM EST Ancillary Procedure [facility] MRI [address] [facility] [address] [place] [address] documented as of this encounter Visit Diagnoses Not on filedocumented in this encounter Care Teams Banquet Set Up Person Relationship Specialty Start Date End Date Shankar Rodriguez MD [address] [facility] [address] [place] [address] PCP - General Family Medicine 09/22/22 documented as of this encounter
--- OUTSIDE RECORDS SUMMARY | 2025-11-20 12:41 | XMS_ITS | Clinical Summary ---
Author Organization [facility] Address [facility] [address] [place] [address] Care Team Providers Care Adjustment Clerk Name Role Phone Unavailable Primary Care Provider [...]
[2025-11-20 12:58] LABS: Hematocrit 49.7 % (42.0-52.0); Hemoglobin 15.8 g/dL (14.1-18.0); Immature Granulocytes % 1.0 %; Mean Corpuscular HGB Conc 31.8 g/dL (31.8-35.4); Mean Corpuscular Hemoglobin 27.1 pg (27.0-31.2); Mean Corpuscular Volume 85.2 fl (80-94); Nucleated Red Blood Cells % 0 %; Platelet Count 326 K/mm3 (142-424); Red Blood Count 5.83 M/mm3 (4.60-6.20); Red Cell Distribution Width-SD 42.1 fL; White Blood Count 10.5 K/mm3 (4.8-10.8)
[2025-11-20 13:16] LABS: Anion Gap 12.2 mEq/L (5-15); Blood Urea Nitrogen 15 mg/dl (9-20); Calcium 9.5 mg/dl (8.4-10.2); Carbon Dioxide 27 mmol/L (22.0-30.0); Chloride 104 mmol/L (98-107); Creatinine,Serum 0.90 mg/dl (0.66-1.25); Estimated Glomerular Filt Rate 85 ml/min (>60); GFR (African American) 103 ML/MIN (>60); Glucose 134 mg/dl (74-100); Potassium 4.2 mmoL/L (3.5-5.1); Sodium 139 mmol/L (136-145)
== END 2025-11-20 23:59 | disposition home or self-care (01) ==
LOC: LAB 12:39
PROVIDERS: PCP Family Medicine; Visit Provider Internal Medicine
DX: I25.10 Atherosclerotic heart disease of native coronary artery without angina pectoris (principal)
CPT/HCPCS: 36415; 80048; 85025

== ENCOUNTER 2025-11-29 09:14 | Outpatient (CLI) | payer MEDICARE, BC, SELFPAY ==
--- OUTSIDE RECORDS SUMMARY | 2025-10-20 09:45 | XMS_ITS | Encounter Summary ---
Author Organization [facility] Address [address] [place] [address] Care Team Providers Care Border Machine Operator Name Role Phone Shankar Rodriguez MD Primary Care Provider [phone] [phone] Reason for Referral * Physical Therapy (Routine) - Pending Review Specialty Diagnoses / Procedures Referred By Conteda t Referred To Contact Physical Therapy Diagnoses Osteoarthritis of right shoulder, unspecified osteoarthritis type Shahnaz Carvajal PA [address] [place] [address] Phone: tel: fax: Referral ID Status Reason Start Date Expiration Date V isits Requested Visits Authorized [id number] Pending Review 10/20/2025 10/20/2026 1 1 Question Answer Evaluate and Treat Yes Select as appropriate Evaluate and treat appropriately Modalities/Procedures As Indicated Therapeutic Exercise As Indicated Goals: Decrease pain and swelling, Increase function, Increase strength, Increase ROM Additional instructions: Frequency and duration per therapist discretion Reason for Visit * Reason Comments Follow-up Follow-up Encounter Details Date Type Department Care Team (Latest Contact Info) Description 10/20/2025 9:45 AM EST Office Visit [facility] [address] [address] Shahnaz Carvajal PA [address] [place] [address] Right shoulder pain, unspecified chronicity (Primary Dx); Primary osteoarthritis of both knees; Osteoarthritis of right shoulder, unspecified osteoarthritis type Social History Tobacco Use Types Packs/Day Years [...] as of this encounter Progress Notes * Shahnaz Carvajal PA - 10/20/2025 9:45 AM EST Images from the original note were not included. PATIENT NAME: Denis Fajardo DATE OF (age): 65 y.o. PHYSICIAN: Shankar Uriostegui MD Date of Visit: 10/20/2025 Subjective: Chief Complaint: Bilateral knee Durolane, Right shoulder pain History: What caused the pain/What was the injury?: No injury Location of pain: Global shoulder When did it start?: 3 months ago What makes it better/treatment?: (ex: treatment elsewhere, injections, PT etc.) No treatment. Presented to his primary care and an MRI of the shoulder was ordered What makes it worse: Any shoulder range of motion Pain with overhead activity? Yes Were they referred?: No Relevant point review of (Review of Systems Form, Injury Forms, and/or History Forms) dated 10/20/2025 (or most recent visit to [facility]) was reviewed and all pertinent positives were reviewed and are available in the patient's chart Past Medical History[1] Surgical History[2] Medications ordered prior to the current encounter[3] Allergies[4] Social History Socioeconomic History Marital status: Spouse name: Not on file Number of children: Not on file Years of education: Not on file Highest education level: Not on file Occupational History Not on file Tobacco Use Smoking status: Some Days Types: Cigarettes Smokeless tobacco: Never Substance and Sexual Activity Alcohol use: Yes Comment: socially Drug use: Never Sexual activity: Not on file Other Topics Concern Not on file Social History Narrative Not on file Social Drivers of Health Financial Resource Strain: Not on file Food Insecurity: Not on file Transportation Needs: Not on file Physical Activity: Not on file Stress: Not on file Social Connections: Unknown (09/07/2023) Received from [facility] Family and Community Support Help with Day-to-Day Activities: Not on file Lonely or Isolated: Not on file Intimate Partner Violence: Unknown (09/07/2023) Received from [facility] Abuse Screen Unsafe at Home or Work/School: Not on file Feels Threatened by Someone?: Not on file Does Anyone Keep You from Contacting Others or Doint Things Outside the Home?: Not on file Physical Sign of Abuse Present: Not on file Housing Stability: Unknown (09/07/2023) Received from [facility] Housing Stability Current Living Arrangements: Not on file Potentially Unsafe Housing Conditions: Not on file Objective: General: Well-appearing with appropriate affect. No acute distress.normal body habitus. Estimated body mass index is 35.53 kg/m?? as calculated from the following: Height as of 06/06/22: 6' (1.829 m). Weight as of 09/22/22: 262 lb (118.8 kg). Appears stated age. Head: Normocephalic atraumatic Ears and Nose: External appearance is normal. Skin: Warm and dry. Color natural. Neuro: Alert and orientated to person,place and time. Normal neurosensory response to touch. Pulmonary: Respirations are unlabored and regular. Chest expansion appears symmetic. Cardiovascular: No signs of peripheral edema. Gait: Walks with a nonantalgic gait. Psychiatric: Mood is appropriate for circumstances. Ortho Exam: Tenderness to palpation: AC joint: Yes Long head of biceps tendon: No Proximal humerus: No Scapula: No Shoulder AROM: Forward Flexion: 160 deg ER with arm adducted: 45 deg Shoulder PROM: Forward Flexion: 175 deg ER with arm adducted: 45 deg Strength: Supraspinatus: positive weakness and pain Infraspinatus: positive weakness and pain Subscapularis: negative weakness and pain Tests: Neer: positive Hawkin's: positive Pablo's: positive Speed's: negative Philadelphia's: positive Cross body adduction: positive Apprehension: negative Relocation: negative Assessment and Plan: Patient presents for bilateral knee Durolane injections. These injections were administered today. Patient also reports right shoulder pain for approximately 3 months but has worsened over the last three weeks. He notes stiffness and pain especially with rotation of the shoulder. He denies any previous injuries or history of shoulder surgeries. He notes that his primary care ordered an MRI of the shoulder which he has not completed yet. X-rays were reviewed with the patient and he does have severe AC joint osteoarthritis. Exam is consistent with possible rotator cuff tear. A right shoulder subacromial cortisone injection was administered today. Patient will follow-up after the MRI to discuss results and next steps. Diagnoses and all orders for this visit: Right shoulder pain, unspecified chronicity - XR SHOULDER RIGHT 4 VIEWS; Future Primary osteoarthritis of both knees - Large Joint Injection/Arthrocentesis: bilateral knee Osteoarthritis of right shoulder, unspecified osteoarthritis type - AMB REFERRAL TO PHYSICAL THERAPY Other orders - Large Joint Injection/Arthrocentesis Verbal consent obtained. The knees were prepped in a standard fashion. The injection site was marked and sterilely prepped with alcohol. The affected area was injected with 4cc of sodium hyaluronate. The patient tolerated the injection well with no complications. Verbal consent obtained. The shoulder was prepped in a standard fashion. The injection site was marked and sterilely preppedwith alcohol. The affected area was injected through posterior approach with 1cc of celestone and 1cc of 0.25% bupivacaine. The patient tolerated the injection well with no complications. Imaging results: 4 view x-rays of the right shoulder were independently interpreted by me. There are no fractures ordislocations. There is no lytic lesions. There are no signs of avascular necrosis. There are severe degenerative changes to the AC joint including joint space narrowing, subchondral sclerosis, osteophytes and cystic change of the bone. DME Summary No orders found for display Shahnaz Carvajal PA-C [1] Past Medical History: Diagnosis Date Diabetes mellitus (HCC) Parkinson's disease (HCC) [2] Past Surgical History: Procedure Laterality Date GASTRIC BYPASS SURGERY [3] Current Outpatient Medications on File Prior to Visit Medication Sig Dispense Refill albuterol (PROAIR HFA) 90 mcg/actuation Inhl HFA Aerosol Inhaler Inhale 2 Puffs into the lungs 4 times daily. ARIPiprazole (ABILIFY) 5 mg Oral Tablet aspirin 81 mg Oral Tablet, Chewable 81 mg. atorvastatin (LIPITOR) 40 mg Oral Tablet Take 40 mg by mouth daily. benztropine (COGENTIN) 1 mg Oral Tablet Take by mouth daily. bisoprolol (ZEBETA) 5 mg Oral Tablet Take 5 mg by mouth daily. clopidogreL (PLAVIX) 75 mg Oral Tablet Take 75 mg by mouth. desvenlafaxine succinate (PRISTIQ) 100 mg Oral Tablet Sustained Release 24 hr Take 50 mg by mouth daily. DULoxetine (CYMBALTA) 60 mg Oral Capsule, Delayed Release(E.C.) Eszopiclone (LUNESTA) 3 mg Oral Tablet TAKE 1 TABLET BY MOUTH EVERYDAY AT BEDTIME fUROsemide (LASIX) 20 mg Oral Tablet gabapentin enacarbil 600 mg Oral Tablet Sustained Release 600 mg. levETIRAcetam (KEPPRA) 500 mg Oral Tablet LORazepam (ATIVAN) 0.5 mg Oral Tablet Take 0.5 mg by mouth every 6 hours as needed for Anxiety. losartan (COZAAR) 50 mg Oral Tablet Take 50 mg by mouth daily. meloxicam (MOBIC) 15 mg Oral Tablet Take 1 Tablet by mouth daily. 30 Tablet 2 meloxicam (MOBIC) 15 mg Oral Tablet Take 15 mg by mouth daily. metFORMIN (GLUCOPHAGE) 500 mg Oral Tablet Take 500 mg by mouth daily. olanzapine-samidorphan 5-10 mg Oral Tablet 1 Tablet. omeprazole (PRILOSEC) 40 mg Oral Capsule, Delayed Release(E.C.) Take by mouth daily. polyethylene glycol (GLYCOLAX) 17 gram/dose Oral Powder Take 17 g by mouth daily. rOPINIRole (REQUIP) 2 mg Oral Tablet 2 mg. tadalafiL (CIALIS) 5 mg Oral Tablet Take 5 mg by mouth daily. Tadalafil 20 mg Oral Tablet 20 mg. tamsulosin (FLOMAX) 0.4 mg Oral Capsule Take by mouth daily. testosterone enanthate 100 mg/0.5 mL SubQ Auto-Injector 100 mg. XYOSTED 75 mg/0.5 mL SubQ Auto-Injector inject 1 syringe subcutaneously once a week No current facility-administered medications on file prior to visit. [4] No Known Allergies * Shahnaz Carvajal PA - 10/20/2025 9:45 AM ESTAssociated Order(s): Large Joint Injection/Arthrocentesis: bilateral knee Post-Procedure Diagnose(s): Primary osteoarthritis of both knees Large Joint Injection/Arthrocentesis: bilateral knee on 10/20/2025 9:45 AM Indications: pain and joint swelling Details: 21 G needle, anterolateral approach Medications (Right): 3 mL hyaluronate sodium, stabilized 60 mg/3 mL Medications (Left): 3 mL hyaluronate sodium, stabilized 60 mg/3 mL Outcome: tolerated well, no immediate complications Procedure, treatment alternatives, risks and benefits explained, specific risks discussed. Consent was given by the patient. Patient was prepped and draped in the usual sterile fashion. * Jossie Pascual ATC - 10/20/2025 9:45 AM ESTAssociated Order(s): Large Joint Injection/Arthrocentesis Large Joint Injection/Arthrocentesis on 10/20/2025 9:45 AM Indications: pain Details: 22 G needle, posterior approach Medications: 1 mL BUPivacaine HCl 0.25 % (2.5 mg/mL); 1 mg betamethasone acet- betamethasone sodium phos 6 mg/mL Outcome: tolerated well, no immediate complications Procedure, treatment alternatives, risks and benefits explained, specific risks discussed. Consent was given by the patient. Immediately prior to procedure a time out was called to verify the correctpatient, procedure, equipment, community support specialist and site/side marked as required. Patient was prepped and draped in the usual sterile fashion. documented in this encounter Plan of Treatment Scheduled Referrals Name Type Priority Associated Diagnoses Orde r Schedule AMB REFERRAL TO PHYSICAL THERAPY Outpatient Referral Routine Osteoarthritis of right shoulder, unspecified osteoarthritis type Ordered: 10/20/2025 documented as of this encounter Procedures Procedure Name Priority Date/Time Associated Diagnosis Comments ME ARTHROCENTESIS ASPIR&/INJ MAJOR JT/BURSA W/O US Routine 10/20/2025 9:45 AM EST Osteoarthritis of right shoulder, unspecified osteoarthritis type ME ARTHROCENTESIS LARGE JOINT W/O US BILATERAL Routine 10/20/2025 9:45 AM EST Primary osteoarthritis of both knees documented in this encounter Results * XR SHOULDER RIGHT 4 VIEWS (10/20/2025 9:56 AM EST) Narrative Shahab Barrientos - 10/20/2025 9:56 AM EST Please see physician's note from office encounter for x-ray imaging result us Shankar Uriostegui MD IMG DIAGNOSTIC IMAGING ORDERABLE S Final Result * ME ARTHROCENTESIS ASPIR&/INJ MAJOR JT/BURSA W/O US (10/20/2025 9:45 AM EST) Narrative [facility] - 10/20/2025 9:45 AM EST Jossie Pascual, ATC 10/20/2025 10:52 AM Large Joint Injection/Arthrocentesis on 10/20/2025 9:45 AM Indications: pain Details: 22 G needle, posterior approach Medications: 1 mL BUPivacaine HCl 0.25 % (2.5 mg/mL); 1 mg betamethasone acet-betamethasone sodium phos 6 mg/mL Outcome: tolerated well, no immediate complications Procedure, treatment alternatives, risks and benefits explained, specific risks discussed. Consent was given by the patient. Immediately prior to procedure a time out was called to verify the correct patient, procedure, equipment, community support specialist and site/side marked as required. Patient was prepped and draped in the usual sterile fashion. us Shahnaz PEREZ PROCEDURE/MINOR SURGICAL OR DERABLES Final Result Performing Organization Address City/State/[facility] [place] Phone Number [facility] * ME ARTHROCENTESIS LARGE JOINT W/O US BILATERAL (10/20/2025 9:45 AM EST) Narrative [facility] - 10/20/2025 9:45 AM EST Jossie Pascual, ATC 10/20/2025 10:52 AM Large Joint Injection/Arthrocentesis: bilateral knee on 10/20/2025 9:45 AM Indications: pain and joint swelling Details: 21 G needle, anterolateral approach Medications (Right): 3 mL hyaluronate sodium, stabilized 60 mg/3 mL Medications (Left): 3 mL hyaluronate sodium, stabilized 60 mg/3 mL Outcome: tolerated well, no immediate complications Procedure, treatment alternatives, risks and benefits explained, specific risks discussed. Consent was given by the patient. Patient was prepped and draped in the usual sterile fashion. Shahnaz PEREZ PROCEDURE/MINOR SURGICAL OR DERABLES Final Result [facility] documented in this encounter Visit Diagnoses Diagnosis Right shoulder pain, unspecified chronicity- Primary Primary osteoarthritis of both knees Primary localized osteoarthrosis, lower leg Osteoarthritis of right shoulder, unspecified osteoarthritis type Right shoulder pain, unspecified chronicity documented in this encounter Administered Medications Inactive Administered Medications - up to 1 most recent administrations Medication Order MAR Action Action Date Dose Rate Site betamethasone acet-betamethasone sodium phos (CELESTONE) injection 1 mg 1 mg, Intra-articular, ONCE PRN, 1 dose, Starting on Thu10/20/25 at 0945, Until Thu10/20/25 at 0945, Dx: 1. Osteoarthritis of right shoulder, unspecified osteoarthritis typeIndications:Osteoarthritis of right shoulder, unspecified osteoarthritis type Given 10/20/2025 9:45 AM EST 1 mg BUPivacaine HCl (MARCAINE) 0.25 % (2.5 mg/mL) injection 1 mL 1 mL, Intra-articular, ONCE PRN, 1 dose, Starting on Thu10/20/25 at 0945, Until Thu10/20/25 at 0945, Dx: 1. Osteoarthritis of right shoulder, unspecified osteoarthritis typeIndications:Osteoarthritis of right shoulder, unspecified osteoarthritis type Given 10/20/2025 9:45 AM EST 1 mL hyaluronate sodium, stabilized 3 mL 3 mL, Intra-articular, ONCE PRN, 1 dose, Starting on Thu10/20/25 at 0945, Until Thu10/20/25 at 0945, Dx: 1. Primary osteoarthritis of both kneesIndications:Primary osteoarthritis of both knees Given 10/20/2025 9:45 AM EST 3 mL Left Knee hyaluronate sodium, stabilized 3 mL 3 mL, Intra-articular, ONCE PRN, 1 dose, Starting on Thu10/20/25 at 0945, Until Thu10/20/25 at 0945, Dx: 1. Primary osteoarthritis of both kneesIndications:Primary osteoarthritis of both knees Given 10/20/2025 9:45 AM EST 3 mL Right Knee documented in this encounter Care Teams Border Machine Operator Relationship Specialty Start Date End Date Shankar Rodriguez MD [address] [place] [address] [address] [place] [address] PCP - General Family Medicine 10/24/22 documented as of this encounter
--- OUTSIDE RECORDS SUMMARY | 2025-10-20 10:00 | XMS_ITS | Encounter Summary ---
Author Organization [facility] Address [address] [place] [address] Care Team Providers Care Clinical Trial Leader Name Role Phone Shankar Rodriguez MD Primary Care Provider +1 [phone] Encounter Details Date Type Department Care Team (Latest Contact Info) Description 10/20/2025 10:00 AM EST Ancillary Procedure [facility] [address] [place] [address] Shankar Uriostegui MD [address] [place] [address] Right shoulder pain, unspecified chronicity Social History [...] chronicity documented in this encounter Care Teams Clinical Trial Leader Relationship Specialty Start Date End Date Shankar Rodriguez MD [address] [facility] [phone] PCP - General Family Medicine 09/22/22 documented as of this encounter
--- OUTSIDE RECORDS SUMMARY | 2025-11-21 17:30 | XMS_ITS | Encounter Summary ---
Author Organization [facility] Address [address] [place] [address] Care Team Providers Care Activities Leader Name Role Phone Shankar Rodriguez MD Primary Care Provider +1 [phone] Reason for Visit * MRI/CAT Scan (Routine) - Pending Review Specialty Diagnoses / Procedures Referred By Contac t Referred To Contact Radiology Diagnoses Stiffness of joint, shoulder region, right Pain in joint of right shoulder Procedures MRI SHOULDER RIGHT WO CONTRAST Jayant Hale MD [address] [place] [id number] Phone: tel: fax: Referral ID Status Reason Start Date Expiration Date V isits Requested Visits Authorized [id number] Pending Review 11/13/2025 11/13/2026 1 1 Encounter Details Date Type Department Care Team (Latest Contact Info) Description 11/21/2025 5:30 PM EST Ancillary Procedure [facility] MRI [address] [facility] [address] [place] [address] Stiffness of joint, shoulder region, right; Pain in joint of right shoulder Social History Tobacco Use Types Packs/Day Years [...] Procedure Name Priority Date/Time Associated Diagnosis Comments MRI SHOULDER RIGHT WO CONTRAST Routine 11/21/2025 5:37 PM EST Stiffness of joint, shoulder region, right Pain in joint of right shoulder documented in this encounter Results * MRI SHOULDER RIGHT WO CONTRAST (11/21/2025 5:37 PM EST) Narrative [facility] - 11/21/2025 5:37 PM EST Please see the scanned MRI report associated with this order on the Imaging tab of the patient's chart. us Jayant Hale MD G MRI ORDERABLES Final Result [facility] documented in this encounter Visit Diagnoses Diagnosis Stiffness of joint, shoulder region, right Pain in joint of right shoulder Pain in joint, shoulder region documented in this encounter Care Teams Activities Leader Relationship Specialty Start Date End Date Shankar Rodriguez MD [address] [place] [address] [address] [place] [id number] PCP - General Family Medicine 09/22/22 documented as of this encounter
--- OUTSIDE RECORDS SUMMARY | 2025-11-29 09:20 | XMS_ITS | Clinical Summary ---
Author Organization [facility] Address [facility] [address] [place] [place] [address] Care Team Providers Care Warranty Clerk Name Role Phone Unavailable Primary Care [...]
--- OUTSIDE RECORDS SUMMARY | 2025-11-29 09:20 | XMS_ITS | Clinical Summary ---
Author Organization [facility] Phone Care Team Providers Care Spiritual Care Coordinator Name Role Phone Shankar Rodriguez MD Primary Care Provider [phone] [phone] Allergies No known active allergies Medications albuterol [...] Encounters Date Type Department Care Team Description 11/21/2025 5:30 PM EST [facility] [address] [facility] [address] [place] [address] Stiffness of joint, shoulder region, right; Pain in joint of right shoulder 11/20/2025 Telephone [facility] [address] [place] [address] Shahnaz Carvajal PA 10/20/2025 10:00 AM EST Ancillary Procedure [facility] [address] [place] [address] Shankar Uriostegui MD Right shoulder pain, unspecified chronicity 10/20/2025 9:45 AM EST Office Visit [facility] Alt[facility]ir[facility] [address] [place] [address] Shahnaz Carvajal PA Right shoulder pain, unspecified [...] right Pain in joint of right shoulder XR SHOULDER RIGHT 4 VIEWS Routine 10/20/2025 9:56 AM EST Right shoulder pain, unspecified chronicity [place] ARTHROCENTESIS ASPIR&/INJ MAJOR JT/BURSA W/O US Routine 10/20/2025 9:45 AM EST Osteoarthritis of right shoulder, unspecified osteoarthritis type [place] ARTHROCENTESIS LARGE JOINT W/O US BILATERAL Routine 10/20/2025 9:45 AM EST Primary osteoarthritis of both knees from Last 3 Months Results * MRI SHOULDER RIGHT WO CONTRAST (11/21/2025 5:37 PM EST) Narrative [facility] - 11/21/2025 5:37 PM EST Please see the scanned MRI report associated with this order on the Imaging tab of the patient's chart. us Jayant Hale MD IMG MRI ORDERABLES Final Result [facility] * XR SHOULDER RIGHT 4 VIEWS (10/20/2025 9:56 AM EST) Narrative [facility], Audit - 10/20/2025 9:56 AM EST Please see physician's note from office encounter for x-ray imaging result Shankar Uriostegui MD IMG DIAGNOSTIC IMAGING ORDERABLE S Final Result * TN ARTHROCENTESIS ASPIR&/INJ MAJOR JT/BURSA W/O US (10/20/2025 [...] to verify the correct patient, procedure, equipment, network support engineer and site/side marked as required. Patient was prepped and draped in the usual sterile fashion. Shahnaz PEREZ PROCEDURE/MINOR SURGICAL OR DERABLES Final Result Performing Organization Address [facility] Phone Number [facility] * [place] ARTHROCENTESIS LARGE JOINT W/O US BILATERAL (10/20/2025 [...] OR DERABLES Final Result Performing Organization Address [facility] Phone Number [facility] from Last 3 Months Insurance MEDICARE [place] PART A AND B [place] MEDICARE [place] PART A AND B [place] Member Subscriber Plan / Payer ( fective 2021-Present) Name:Denis Fajardo Relation to Subscriber:Self Name:Denis Fajardo Payer ID:[id number] (NAIC) Group ID:Not on file Type:Not on file Address: [address] [place] PPO Member Subscriber Plan / Payer (Ef fective 2023-Present) Name:Denis Fajardo Relation to Subscriber:Self Name:Denis Fajardo Payer ID:[id number] (NAIC) Group ID:Not on file Type:Not on file Address: [id number] Care Teams Spiritual Care Coordinator Relationship Specialty Start Date End Date Shankar Rodriguez MD [address] [facility] [address] [place] [address] PCP - General Family Medicine 09/22/22
--- OUTSIDE RECORDS SUMMARY | 2025-11-29 09:20 | XMS_ITS | Encounter Summary ---
Author Organization [facility] Address [address] [id number] Care Team Providers Care Pastoral Assistant Name Role Phone Shankar Rodriguez MD Primary Care Provider [phone] Encounter Details Date Type Department Care Team (Late st Contact Info) Description 11/20/2025 [place] [address] Shahnaz Carvajal PA [address] [place] [address] Social History Tobacco Use Types Packs/Day Years [...] on filedocumented in this encounter Care Teams Pastoral Assistant Relationship Specialty Start Date End Date Shankar Rodriguez MD [address] [facility] [address] [place] [address] PCP - General Family Medicine 09/22/22 documented as of this encounter
--- OUTSIDE RECORDS SUMMARY | 2025-11-29 09:20 | XMS_ITS | Clinical Summary ---
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 Device Identifier Shelf Expiration Date Model / Serial / Lot Stplln Peristrip Dry Veritas Ech60 6fire - [id number] Implanted:Qty : 1 on 11/14/2016 by Aden Boyce MD at [facility] Implant N/A: Stomach [employer] [id number] 09/09/2019 [id number] HV / / [id number] Description:1ST & 2ND Stplln Peristrip Dry Veritas Ech60 6fire - [id number] Implanted:Qty : 1 on 11/14/2016 by Aden Boyce MD at [facility] Implant N/A: Stomach [employer] [id number] 09/09/2019 [id number] HV / / [id number] Description:5TH & 6TH Stplln Peristrip Dry Veritas Ech60 6fire - [id number] Implanted:Qty : 1 on 11/14/2016 by Aden Boyce MD at [facility] Implant N/A: Stomach [employer] [id number] 09/09/2019 [id number] HV / / [id number] Description:3RD & 4TH Stplln Peristrip Dry Veritas Ech60 6fire - [id number] Implanted:Qty : 1 on 11/14/2016 by Aden Boyce MD at [facility] Implant N/A: Stomach [employer] 05/07/2019 [id number] HV / / [id number] Description:7TH Procedures Procedure Name Priority Date/Time Associated Diagnosis Comments HEMOGLOBIN A1C Routine 11/13/2016 4:41 PM EST from Last 3 Months or Most Recently Relevant to Health Maintenance Results * (ABNORMAL) Hemoglobin A1c (11/13/2016 4:41 PM EST) Hemoglobin A1C 6.20(H) 4.80 - 5.60 % 11/13/2016 5:26 PM EST [facility] Blood Venipuncture / Unknown 11/13/2016 4:41 PM EST 11/13/2016 4:52 PM EST Narrative [facility] - 11/13/2016 5:26 PM EST The [place] [employer] recommends maintenance of Hemoglobin A1C at 7.0% or lower. Goals for Hemoglobin A1C reduction may need to be modified if hypoglycemia is a problem. dAen Boyce MD LAB BLOOD ORDERABLES Final Result [facility]
[address] [place] [address], [place] [phone] from Last 3 Months or Most Recently Relevant to Health Maintenance Insurance MEDICARE A & B Member Subscriber Plan / Payer (Ef fective 2014-Present) Name:Denis Fajardo Member ID:[id number] Relation to Subscriber:Self Name:Denis Fajardo Subscriber ID:[id number] Payer ID:[id number] Group ID:Not on file Type:Not on file Address: [facility] [id number] [address] Advance Directives * Full Code (Latest Code Status on File) Date Activated Date Inactivated Comments 11/14/2016 3:27 PM 11/15/2016 8:02 PM Care Teams Ecg Technician Relationship Specialty Start Date End Date Shankar Rodriguez MD [address] [facility] [address] [place] [address] PCP - General Family Medicine 11/13/16
--- OUTSIDE RECORDS SUMMARY | 2025-11-29 09:20 | XMS_ITS | Encounter Summary ---
Author Organization [facility] Address [address] [place] [address] Care Team Providers Care Presiding Steward Name Role Phone Shankar Rodriguez MD Primary Care Provider [phone] Reason for Visit * Reason Onset Date Comments Knee Pain 07/21/2025 Encounter Details Date Type Department Care Team (Late st Contact Info) Description 07/21/2025 Telephone [facility] [address] [facility] [address] [place] [address] Shankar Uriostegui MD [address] [place] [address] Knee Pain Social History Tobacco Use Types [...] PLEASE REVIEW BENEFITS IN CHART NPC- Case# [id number] documented in this encounter Plan of Treatment Not on file documented as of this encounter Visit Diagnoses Not on filedocumented in this encounter Care Teams Presiding Steward Relationship Specialty Start Date End Date Shankar Rodriguez MD [facility] [address] [place] [address] PCP - General Family Medicine 09/22/22 documented as of this encounter
--- OUTSIDE RECORDS SUMMARY | 2025-11-29 09:20 | XMS_ITS | Clinical Summary ---
Author Organization [facility] Address [address] [place] [address] Care Team Providers Care Tailings Man Name Role Phone Unavailable Primary Care Provider [...] 2011 UKY-Zoster Vaccines (1 of 2) 2011 [id number] Vaccine ( - season) 2025 12/10/2021, 12/25/2020, [...]
[2025-11-29 10:26] LABS: Alanine Aminotransferase 43 U/L (12-78); Albumin Level 4.7 g/dl (3.5-5.0); Alkaline Phosphatase 64 U/L (38-126); Aspartate Amino Transferase 33 U/L (17-59); Bilirubin,Direct 0.3 mg/dl (0.0-0.4); Bilirubin,Indirect 0.4 mg/dL (0.0-0.9); Bilirubin,Total 0.7 mg/dl (0.2-1.3); Bilirubin,Unconjugated 0.4 mg/dL (0.0-1.1); Cholesterol 164 mg/dl (140-200); HDL Cholesterol 37 mg/dl (40-60); Total Protein,Serum 7.6 g/dl (6.3-8.2); Triglycerides 124 mg/dl (30-150)
== END 2025-11-29 23:59 | disposition home or self-care (01) ==
LOC: LAB 09:16
PROVIDERS: PCP Family Medicine; Visit Provider Nurse Practitioner Family
DX: I25.10 Atherosclerotic heart disease of native coronary artery without angina pectoris (principal); I10 Essential (primary) hypertension
CPT/HCPCS: 36415; 80061; 80076